=== PATIENT | male | born 1945 | race Caucasian/White ===

== ENCOUNTER → 2016-09-07 | Outpatient (CLI) | payer BC, MEDICARE ==
[~2016-09-07] MED LIST: CELE100C PO; LISI-538 PO; OMEP20CA3 PO; SIMV40TA2 PO
== END ==
LOC: M LAB 11:43
PROVIDERS: ATTEND Ophthalmology
DX: H02.403 Unspecified ptosis of bilateral eyelids (principal)

== ENCOUNTER → 2016-11-17 | Outpatient (CLI) | payer BC, MEDICARE ==
[2016-11-17 11:35] LABS: CALCIUM LEVEL 8.6 MG/DL (8.8-10.2); CREATININE FOR GFR 1.5 MG/DL (0.70-1.30); POTASSIUM SERUM 4.3 MEQ/L (3.5-5.1)
[2016-11-17 11:59] LABS: COLLAGEN ADP 115 SECONDS (56-103)
--- NOTE | 2016-11-17 22:22 | ECGEPIP ---
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
== END ==
LOC: M LAB 10:41
PROVIDERS: ATTEND Ophthalmology
DX: I10 Essential (primary) hypertension (principal)

== ENCOUNTER → 2016-11-24 | Outpatient (REF) | payer BC, MEDICARE ==
[~2016-11-24] MED LIST changes: +ASPI1TAB24 PO; +MELO7.5T6 PO
[2016-11-24 15:06] LABS: COLLAGEN ADP 130 SECONDS (56-103)
== END ==
LOC: M LABDRAWP 13:44
PROVIDERS: ATTEND Ophthalmology
DX: I10 Essential (primary) hypertension (principal)

== ENCOUNTER → 2016-11-27 | Day surgery (SDC) | payer BC, MEDICARE ==
--- NOTE | 2016-11-21 16:46 | HPE ---
DATE OF SCHEDULED ADMISSION: 11/27/2016 HISTORY AND CHIEF COMPLAINT: Mr. Hughes is a 71-year-old gentleman who has had progressive drooping of both upper eyelids. The right upper eyelid is worse than the left upper eyelid. The drooping has been progressive for the last few years. The vision and visual field are affected. The patient is being admitted to have a levator aponeurosis resection, advancement and reattachment with a blepharoplasty of both upper eyelids under local anesthetic with monitored sedation. PAST OCULAR HISTORY: See history of present illness, cataracts both eyes, dry eye syndrome both eyes, vitreous degeneration both eyes. PAST MEDICAL HISTORY AND PREOPERATIVE MEDICAL EVALUATION AND ASSESSMENT: Please see the report by Ryann Ware, Nurse Practitioner. Hypertension, gastroesophageal reflux disease (GERD), osteoarthritis, hyperlipidemia. MEDICATIONS: Please refer to the report by Ryann Ware. Lisinopril, aspirin 81 mg, Mobic, alfuzosin, ranitidine, Tylenol, Zocor. ALLERGIES: No known drug allergies. FAMILY HISTORY: Noncontributory with respect to eye disease. SOCIAL HISTORY: Nonsmoker. On examination, vision without correction: Right eye: 20/25, left eye: 20/25. Intraocular pressure by Goldmann tonometry: Both eyes: 15 mmHg. Pupils: Both eyes: Round, regular and reactive to light. Extraocular movements: Both eyes: Full. External examination: Both eyes: Myogenic ptosis upper eyelid both eyes. Marginal reflex distance: Right eye: 0.5 mm, left eye: 1.0 mm. Levator function: Both eyes: 12 mm. Involutional dermatochalasis with orbital fat herniation upper and lower eyelids both eyes. Margin to brow skin measurement: Right eye: 32 mm, left eye: 30 mm. No lid lagophthalmos present. Slit lamp examination: Cornea: Both eyes: 1+ superficial punctate keratitis. Anterior chamber: Both deep and quiet. Iris: Both eyes: Normal. Lens: Both Eyes: mild nuclear sclerotic cataracts. Visual field ptosis: Both eyes: 45 degree superior loss. IMPRESSION: 1. Myogenic ptosis upper eyelids both eyes, affecting vision and visual field. 2. Involutional dermatochalasis with orbital fat herniation and lash touch upper eyelids both eyes. PLAN: I discussed the findings with Mr. Hughes. I explained to him that the levator muscle and aponeurosis is degenerating, which is causing the eyelids to droop. The right upper eyelid is worse than the left upper eyelid. The excess skin and orbital fat herniation is exacerbating the drooping. This is affecting his vision and visual field. I recommended levator aponeurosis resection, advancement and reattachment with a blepharoplasty of both upper eyelids. I discussed with him the procedure, benefits, expected outcomes, risks and alternatives to surgery. I mentioned that the risk of surgery includes but is not limited to: Surgery is not guaranteed, bleeding, infection, inflammation, scarring, over correction, under correction, injury to the globe, extraocular eye muscles or orbit impairing the vision and eye movement. Mr. Hughes elected to have the said surgery performed. I obtained an informed consent. Advised him to stop his aspirin products and nonsteroidal anti-inflammatory from today. His PFA test was greater than 300 due to the aspirin. I have given him a prescription to repeat the PFA test on Sunday before surgery. Ryann Ware, Nurse Practitioner, will recommend his other preoperative and postoperative medications. MARGARITA
[~2016-11-27] VITALS: Ht 172.7 cm; Wt 95.3 kg
[~2016-11-27] MED LIST changes: +ACETAMINOPHEN TAB 650MG DOSE (2X325MG) PO PRN; +BUPIVACAINE 0.75% 10 ML VIAL XX ONE; +CIPROFLOXACIN 0.3% OPHTH SOLN 2.5ML ONE; +CIPROFLOXACIN OPHTH 0.3% OINTMENT OU SCH; +CIPROFLOXACIN OPHTH 0.3% OINTMENT XX ONE; +D5W/0.2% SODIUM CHLORIDE 1,000 ML IV SCH; +GLYCOPYRROLATE INJ 0.2 MG/ML 2 ML VIAL As Ordered ONE; +HYALURONIDASE 200 UNITS/ML VIAL (J3470) XX ONE; +LABETALOL HCL 100 MG/20 ML VIAL As Ordered ONE; +LIDOCAINE 2% W/EPIN INJ 20ML **PRES FREE As Ordered ONE; +LIDOCAINE W/EPINEPHRINE 1% 20ML VIAL XX ONE; +MIDAZOLAM INJ 2 MG/2 ML VIAL (J2250) As Ordered ONE; +ONDANSETRON 4MG/2ML VIAL (J2405) As Ordered ONE; +POVIDONE-IODINE 5% OPHTH PREP SOL 30ML ONE; +PROPOFOL 200 MG/20 ML VIAL As Ordered ONE; +SODIUM BICARBONATE 8.4% INJ 50MEQ 50 ML VIAL XX ONE; +TOBRADEX OPHTH OINT 3.5 GM XX ONE; +dexameTHASONE 4 MG/ML 1ML VIAL (J1100) IV ONE; +fentaNYL 100 MCG/2 ML INJECTION (J3010) As Ordered ONE
[2016-11-27 10:30] VITALS: BP 166/87
--- NOTE | 2016-11-27 12:47 | RO ---
DATE OF PROCEDURE: 11/27/2016 PREOPERATIVE DIAGNOSIS: 1. Myogenic ptosis upper eyelid both eyes, affecting vision and visual field. 2. Involutional dermatochalasis upper eyelid both eye. POSTOPERATIVE DIAGNOSIS: 1. Myogenic ptosis upper eyelid both eyes, affecting vision and visual field. 2. Involutional dermatochalasis upper eyelid both eyes,marked fatty infiltration of levator muscle, thinning of aponeurosis, Herings phenomenon positive. OPERATIVE PROCEDURE: 1. Levator aponeurosis resection, advancement and reattachment of upper eyelids both eyes. 2. Blepharoplasty upper eyelid both eyes. 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 DESCRIPTION OF OPERATION: The patient was brought into the operating room and positioned appropriately. A surgical marking pen was used to annette the upper lid crease height at 7 mm using a pair of calipers and then the upper incision line was marked leaving 20 mm of skin from the eyebrow to the lash line. After adequate sedation, local anesthetic consisting of Xylocaine 1% mixed 50/50 with Marcaine 0.75% and epinephrine 1:200,000 with 0.5 mL of 8.4% sodium bicarbonate and 200 units of Vitrase per 10 mL of local anesthetic, 2.75 mL was injected subcutaneously along the incision lines and superior border of the tarsus of both upper eyelids. The full face was prepped with Betadine and draped in the usual sterile manner. A 6-0 silk traction suture was placed at the lid margin just nasal to the pupil and both upper eyelid was retracted inferiorly. Starting with the right upper eyelid and followed by the left upper eyelid, the skin incision was made with a #15 blade. Good hemostasis was ensured throughout the procedure using bipolar cautery. The orbicularis muscle was identified and incised at the temporal margin and then dissected down to the suborbicularis plane. The myocutaneous flap was then excised from temporal to medial. The orbital septum was identified and incised just inferior to the superior orbital rim and the incision was extended medially and laterally. The medial and central orbital fat pads were identified and retracted to reveal the levator muscle and aponeurosis which was detached from its normal position on the superior tarsus. The levator muscle had marked fatty infiltration. The superior surface of the tarsus was exposed. The levator aponeuosis was thinned. The levator aponeurosis was dissected and advanced. A double-armed 5-0 nylon suture was used to reattach the levator aponeurosis to the tarsus. The suture was tied temporarily. The patient was sat up and the lid margin contour and marginal reflex distance was checked for both upper eyelids. The 5-0 nylon suture was adjusted until the marginal reflex distance was 3 mm. The patient was then placed supine and the 5-0 nylon suture was tied and cut. Hemostasis was checked. The skin and orbicularis layer was then closed with interrupted and continuous 6-0 plain suture. There were no complications during the surgery. At the end of the procedure, a combination of Ciloxan ophthalmic ointment mixed with TobraDex ophthalmic ointment was applied to the incision and the sutures. A cold saline compress was placed over both closed upper eyelids. The patient left for the recovery room in good condition. Specimens were sent to pathology. MARGARITA
== END | disposition home or self-care (01) ==
LOC: M SDC 05:50
PROVIDERS: ATTEND Ophthalmology
DX: H02.421 Myogenic ptosis of right eyelid (principal); H02.422 Myogenic ptosis of left eyelid; H02.831 Dermatochalasis of right upper eyelid; H02.832 Dermatochalasis of right lower eyelid; I10 Essential (primary) hypertension; E78.00 Pure hypercholesterolemia, unspecified; K21.9 Gastro-esophageal reflux disease without esophagitis; M19.90 Unspecified osteoarthritis, unspecified site; H26.9 Unspecified cataract; H04.123 Dry eye syndrome of bilateral lacrimal glands; H43.813 Vitreous degeneration, bilateral; Z87.891 Personal history of nicotine dependence; Z79.899 Other long term (current) drug therapy

== ENCOUNTER → 2017-01-29 | Outpatient (CLI) | payer BC ==
[~2017-01-29] MED LIST changes: -ACETAMINOPHEN TAB 650MG DOSE (2X325MG) PO PRN; -BUPIVACAINE 0.75% 10 ML VIAL XX ONE; -CIPROFLOXACIN 0.3% OPHTH SOLN 2.5ML ONE; -CIPROFLOXACIN OPHTH 0.3% OINTMENT OU SCH; -CIPROFLOXACIN OPHTH 0.3% OINTMENT XX ONE; -D5W/0.2% SODIUM CHLORIDE 1,000 ML IV SCH; -GLYCOPYRROLATE INJ 0.2 MG/ML 2 ML VIAL As Ordered ONE; -HYALURONIDASE 200 UNITS/ML VIAL (J3470) XX ONE; -LABETALOL HCL 100 MG/20 ML VIAL As Ordered ONE; -LIDOCAINE 2% W/EPIN INJ 20ML **PRES FREE As Ordered ONE; -LIDOCAINE W/EPINEPHRINE 1% 20ML VIAL XX ONE; -MIDAZOLAM INJ 2 MG/2 ML VIAL (J2250) As Ordered ONE; -ONDANSETRON 4MG/2ML VIAL (J2405) As Ordered ONE; -POVIDONE-IODINE 5% OPHTH PREP SOL 30ML ONE; -PROPOFOL 200 MG/20 ML VIAL As Ordered ONE; -SODIUM BICARBONATE 8.4% INJ 50MEQ 50 ML VIAL XX ONE; -TOBRADEX OPHTH OINT 3.5 GM XX ONE; -dexameTHASONE 4 MG/ML 1ML VIAL (J1100) IV ONE; -fentaNYL 100 MCG/2 ML INJECTION (J3010) As Ordered ONE
== END ==
LOC: M SMT 10:25
PROVIDERS: ATTEND Urology
DX: Z12.5 Encounter for screening for malignant neoplasm of prostate (principal)

== ENCOUNTER → 2017-09-14 | Outpatient (REF) | payer BC, MEDICARE ==
[2017-09-14 14:21] LABS: ALBUMIN 4.1 GM/DL (3.2-5.2); ALBUMIN/GLOBULIN RATIO 1.37 (1.00-1.93); ALKALINE PHOSPHATASE 88 U/L (45-117); ALT/SGPT 22 U/L (12-78); ANION GAP 7 MEQ/L (8-16); AST/SGOT 15 U/L (7-37); BILIRUBIN,TOTAL 0.8 MG/DL (0.2-1.0); BLOOD UREA NITROGEN 27 MG/DL (7-18); CALCIUM LEVEL 9.1 MG/DL (8.8-10.2); CARBON DIOXIDE LEVEL 26 MEQ/L (21-32); CHLORIDE LEVEL 110 MEQ/L (98-107); CHOLESTEROL LEVEL 128 MG/DL (<200); GLOMERULAR FILTRATION RATE 57.6 (>42); GLUCOSE, FASTING 114 MG/DL (70-100); HDL CHOLESTEROL 40 MG/DL (>40); LDL CHOLESTEROL 64.6 MG/DL (<100); NON-HDL-C 88 MG/DL; POTASSIUM SERUM 4.3 MEQ/L (3.5-5.1); SODIUM LEVEL 143 MEQ/L (136-145); TOTAL PROTEIN 7.1 GM/DL (6.4-8.2); TRIGLYCERIDES LEVEL 117 MG/DL (<150)
== END ==
LOC: M LABDRAW1 12:57
DX: I10 Essential (primary) hypertension (principal)
CPT/HCPCS: 84443

== ENCOUNTER → 2018-03-27 | Outpatient (CLI) | payer BC, MEDICARE ==
[2018-03-27 13:29] LABS: PSA SCREENING 5.36 NG/ML (< 4.0)
== END ==
LOC: M SMT 09:46
DX: Z12.5 Encounter for screening for malignant neoplasm of prostate (principal)
CPT/HCPCS: G0103

== ENCOUNTER → 2018-09-02 | Outpatient (CLI) | payer BC, MEDICARE ==
[~2018-09-02] MED LIST changes: +ASPI-161 PO; -ASPI1TAB24 PO; -MELO7.5T6 PO; +MELO7.5T7 PO
== END ==
LOC: M SMT 09:31
PROVIDERS: ATTEND Nurse Practitioner Women's Health
DX: Z12.5 Encounter for screening for malignant neoplasm of prostate (principal)
CPT/HCPCS: 36415; G0103

== ENCOUNTER → 2018-09-03 | Outpatient (CLI) | payer BC, MEDICARE ==
[2018-09-03 13:58] LABS: BASO # 0.1 10^3/uL (0.0-0.2); BASO % 1.5 % (0.0-1.0); EOS # 0.6 10^3/uL (0.0-0.50); EOS % 7.3 % (0.0-3.0); HEMATOCRIT 47.6 % (42.0-52.0); HEMOGLOBIN 15.8 g/dl (13.5-17.5); LYMPH % 22.5 % (24.0-44.0); MEAN CORPUSCULAR HEMOGLOBIN 31.8 pg (27.0-33.0); MEAN CORPUSCULAR HGB CONC 33.2 g/dl (32.0-36.5); MEAN CORPUSCULAR VOLUME 95.8 fl (80.0-96.0); MONO # 0.8 10^3/uL (0.0-0.8); NEUTROPHILS # 5.2 10^3/uL (1.8-7.7); NEUTROPHILS % 59.4 % (36.0-66.0); PLATELET COUNT, AUTOMATED 153 10^3/uL (150-450); RED BLOOD COUNT 4.97 10^6/uL (4.30-6.10); WHITE BLOOD COUNT 8.7 10^3/uL (4.0-10.0)
[2018-09-03 14:30] LABS: BILIRUBIN,TOTAL 0.6 MG/DL (0.2-1.0); CALCIUM LEVEL 9.2 MG/DL (8.8-10.2); CHOLESTEROL RISK RATIO 3.638 (<5); CREATININE FOR GFR 1.47 MG/DL (0.70-1.30); GLOMERULAR FILTRATION RATE 49.9 (>42); POTASSIUM SERUM 4.4 MEQ/L (3.5-5.1)
== END ==
LOC: M SMT 10:20
PROVIDERS: ATTEND Family Medicine
DX: M19.019 Primary osteoarthritis, unspecified shoulder (principal); I10 Essential (primary) hypertension; E78.5 Hyperlipidemia, unspecified

== ENCOUNTER → 2019-02-13 | Outpatient (CLI) | payer BC, MEDICARE ==
[~2019-02-13] MED LIST changes: +ACET-683 PO; +ALFU10TA2 PO; +CYCL5TAB PO; +LIDO5DIS41 TD; +RANI15TA PO
[2019-02-13 17:12] LABS: CALCIUM LEVEL 9.1 MG/DL (8.8-10.2); CREATININE FOR GFR 1.5 MG/DL (0.70-1.30); GLOMERULAR FILTRATION RATE 48.7 (>42); POTASSIUM SERUM 4.5 MEQ/L (3.5-5.1)
[2019-02-13 17:17] LABS: HEMATOCRIT 46.5 % (42.0-52.0); HEMOGLOBIN 15.2 g/dl (13.5-17.5); MEAN CORPUSCULAR HEMOGLOBIN 32.2 pg (27.0-33.0); MEAN CORPUSCULAR HGB CONC 32.7 g/dl (32.0-36.5); MEAN CORPUSCULAR VOLUME 98.5 fl (80.0-96.0); PLATELET COUNT, AUTOMATED 178 10^3/uL (150-450); RED BLOOD COUNT 4.72 10^6/uL (4.30-6.10); WHITE BLOOD COUNT 9.5 10^3/uL (4.0-10.0)
== END ==
LOC: M SMT 13:08
PROVIDERS: ATTEND Family Medicine
DX: M19.019 Primary osteoarthritis, unspecified shoulder (principal); N18.3 Chronic kidney disease, stage 3 (moderate)

== ENCOUNTER → 2019-04-01 | Outpatient (CLI) | payer BC ==
[~2019-04-01] MED LIST changes: -OMEP20CA3 PO; +OMEP20CA4 PO
== END ==
LOC: M SMT 10:48
PROVIDERS: ATTEND Urology
DX: N40.1 Benign prostatic hyperplasia with lower urinary tract symptoms (principal)

== ENCOUNTER → 2019-06-26 | Outpatient (CLI) | payer BC, MEDICARE ==
--- NOTE | 2019-06-26 16:19 | REP ---
Two-view chest: 06/26/2019. Indication: Cough. Comparison: None. Findings: There is a 1.2 cm hyperdensity in the left hilar region as well as a sub 5 mm pulmonary nodule within the left lingula. There is no pleural effusion or pneumothorax. The cardiac silhouette is not enlarged. Ectatic aorta is noted as well as multilevel thoracic spine degenerative changes and mild scoliosis. Impression: Hyperdense nodule within the left hilar region as well as a 5 mm pulmonary nodule as described. Possible partially calcified lymph node within the left hilar region and granuloma are likely, however, recommend chest CT. Electronically Signed by Pilo Martinez DO 06/26/2019 04:10 P
== END ==
LOC: M CLY 13:59
PROVIDERS: ATTEND Nurse Practitioner Family
DX: R05 Cough (principal); R91.8 Other nonspecific abnormal finding of lung field

== ENCOUNTER → 2019-08-18 | Outpatient (CLI) | payer BC ==
[~2019-08-18] MED LIST changes: -ALFU10TA2 PO; +ALFU10TA3 PO; +OMEP-172 PO; -OMEP20CA4 PO; -SIMV40TA2 PO; +SIMV40TA20 PO
[2019-08-18 13:41] LABS: HEMATOCRIT 47.8 % (42.0-52.0); HEMOGLOBIN 15.6 g/dl (13.5-17.5); MEAN CORPUSCULAR HEMOGLOBIN 32.2 pg (27.0-33.0); MEAN CORPUSCULAR HGB CONC 32.6 g/dl (32.0-36.5); MEAN CORPUSCULAR VOLUME 98.8 fl (80.0-96.0); PLATELET COUNT, AUTOMATED 150 10^3/uL (150-450); RED BLOOD COUNT 4.84 10^6/uL (4.30-6.10); WHITE BLOOD COUNT 8.7 10^3/uL (4.0-10.0)
[2019-08-18 14:19] LABS: BILIRUBIN,TOTAL 0.7 MG/DL (0.2-1.0); CALCIUM LEVEL 8.9 MG/DL (8.8-10.2); CHOLESTEROL RISK RATIO 4.055 (<5); CREATININE FOR GFR 1.61 MG/DL (0.70-1.30); GLOMERULAR FILTRATION RATE 44.8 (>42); POTASSIUM SERUM 4.4 MEQ/L (3.5-5.1); TOTAL PROTEIN 7.1 GM/DL (6.4-8.2)
== END ==
LOC: M PLALAB 11:01
PROVIDERS: ATTEND Family Medicine
DX: M19.019 Primary osteoarthritis, unspecified shoulder (principal)

== ENCOUNTER → 2019-10-13 | Outpatient (CLI) | payer BC, MEDICARE ==
[~2019-10-13] MED LIST changes: -OMEP-172 PO; +OMEP1CAP73 PO
[2019-10-16 00:07] LABS: PSA % FREE 13.8 % (.); PSA FREE 0.76 ng/mL; PSA TOTAL 5.5 ng/mL (0.0-4.0)
== END ==
LOC: M PLALAB 10:49
PROVIDERS: ATTEND Nurse Practitioner Women's Health
DX: R97.20 Elevated prostate specific antigen [PSA] (principal)

== ENCOUNTER → 2020-01-16 | Outpatient (REF) | payer BC, MEDICARE ==
[2020-01-16 17:05] LABS: BASO # 0.1 10^3/uL (0.0-0.2); BASO % 1.3 % (0.0-1.0); EOS # 0.9 10^3/uL (0.0-0.5); EOS % 8.6 % (0.0-3.0); HEMATOCRIT 46.9 % (42.0-52.0); HEMOGLOBIN 15.1 g/dl (13.5-17.5); LYMPH # 2.1 10^3/uL (1.5-5.0); LYMPH % 21.3 % (24.0-44.0); MEAN CORPUSCULAR HEMOGLOBIN 31.6 pg (27.0-33.0); MEAN CORPUSCULAR HGB CONC 32.2 g/dl (32.0-36.5); MEAN CORPUSCULAR VOLUME 98.1 fl (80.0-96.0); MONO # 0.9 10^3/uL (0.0-0.8); MONO % 8.6 % (0.0-5.0); NEUTROPHILS # 5.9 10^3/uL (1.5-8.5); NEUTROPHILS % 59.6 % (36.0-66.0); PLATELET COUNT, AUTOMATED 150 10^3/uL (150-450); RED BLOOD COUNT 4.78 10^6/uL (4.30-6.10); WHITE BLOOD COUNT 9.9 10^3/uL (4.0-10.0)
[2020-01-16 17:53] LABS: ALBUMIN 4.1 GM/DL (3.2-5.2); BILIRUBIN,TOTAL 0.9 MG/DL (0.2-1.0); CALCIUM LEVEL 9.4 MG/DL (8.8-10.2); CHOLESTEROL RISK RATIO 4.054 (<5); CREATININE FOR GFR 1.62 MG/DL (0.70-1.30); GLOMERULAR FILTRATION RATE 44.4 (>42); POTASSIUM SERUM 4.4 MEQ/L (3.5-5.1); TOTAL PROTEIN 7.5 GM/DL (6.4-8.2)
== END ==
LOC: M SFHCCLAY 10:24
PROVIDERS: ATTEND Family Medicine
DX: M19.019 Primary osteoarthritis, unspecified shoulder (principal); E78.5 Hyperlipidemia, unspecified; I10 Essential (primary) hypertension

== ENCOUNTER → 2020-07-08 | Outpatient (REF) | payer MEDICARE ==
[2020-07-08 16:26] LABS: HEMOGLOBIN A1c 5.9 %
[2020-07-08 16:36] LABS: CALCIUM LEVEL 9.5 MG/DL (8.8-10.2); CREATININE FOR GFR 1.35 MG/DL (0.70-1.30); GLOMERULAR FILTRATION RATE 54.7 (>42); POTASSIUM SERUM 4.6 MEQ/L (3.5-5.1); PROSTATIC SPECIFIC AG MONITOR 8.14 NG/ML (< 4.00)
== END ==
LOC: M SFHCCLAY 10:12
PROVIDERS: ATTEND Family Medicine
DX: R97.20 Elevated prostate specific antigen [PSA] (principal); I12.9 Hypertensive chronic kidney disease with stage 1 through stage 4 chronic kidney disease, or unspecified chronic kidney disease; N18.30 Chronic kidney disease, stage 3 unspecified; R73.01 Impaired fasting glucose

== ENCOUNTER → 2020-07-26 | Outpatient (REF) | payer MEDICARE | LOC: M SMT 16:57 | PROVIDERS: ATTEND Nurse Practitioner Family | DX: N40.1 Benign prostatic hyperplasia with lower urinary tract symptoms (principal) | CPT/HCPCS: 51798; 87086; G0463 ==

== ENCOUNTER → 2020-09-29 | Outpatient (CLI) | payer MEDICARE ==
[~2020-09-29] MED LIST changes: -LISI-538 PO; +LISI20TA33 PO
--- NOTE | 2020-09-29 17:50 | REP ---
INDICATION: CKD III HTN COMPARISON: None TECHNIQUE: Real time linder scale ultrasound examination using curved array transducer. FINDINGS: Kidneys are normal in reniform shape with increased central sinus fat consistent with chronic medical renal disease. No hydronephrosis, nephrolithiasis, or renal mass lesion. Right kidney measures 10.5 x 5.9 x 5.1 cm. Left kidney measures 10.7 x 5.8 x 5.4 cm and includes 2.6 cm, 1.0 cm simple peripelvic cysts and 1.9 cm complex peripelvic cyst. IMPRESSION: Chronic medical renal disease with simple and complex left renal cysts. Consider pre and postcontrast CT to confirm benign findings. 1. Prostatomegaly. <Electronically signed by Kendrick Stevenson > 09/29/20 [id number]
--- NOTE | 2020-09-29 17:51 | REP ---
INDICATION: CKD III HTN COMPARISON: None TECHNIQUE: Real time B-mode ultrasound examination using curved array transducer. FINDINGS: Bladder is normal in appearance without wall thickening or mass lesion. Bilateral ureteral jets are identified. Prevoid bladder measures 12.6 x 11.0 x 9.6 cm (869 cc). Postvoid bladder measures 11.3 x 9.0 x 6.4 cm (425 cc). Postvoid residual: 49% IMPRESSION: 1. Abnormally elevated postvoid residual volume. <Electronically signed by Kendrick Stevenson > 09/29/20 [id number]
== END ==
LOC: M RAD 11:14
PROVIDERS: ATTEND Internal Medicine Nephrology
DX: N18.31 Chronic kidney disease, stage 3a (principal); I12.9 Hypertensive chronic kidney disease with stage 1 through stage 4 chronic kidney disease, or unspecified chronic kidney disease; N40.0 Benign prostatic hyperplasia without lower urinary tract symptoms

== ENCOUNTER → 2020-10-24 | Outpatient (CLI) | payer MEDICARE ==
[2020-10-26 23:06] LABS: PSA % FREE 10.9 % (.); PSA FREE 0.75 ng/mL; PSA TOTAL 6.9 ng/mL (0.0-4.0)
== END ==
LOC: M LAB 10:32
PROVIDERS: ATTEND Nurse Practitioner Family
DX: R97.20 Elevated prostate specific antigen [PSA] (principal)

== ENCOUNTER → 2020-10-28 | Outpatient (CLI) | payer MEDICARE | LOC: M PLALAB 10:54 | PROVIDERS: ATTEND Nurse Practitioner Women's Health | DX: Z13.79 Encounter for other screening for genetic and chromosomal anomalies (principal) ==

== ENCOUNTER → 2020-11-30 | Outpatient (CLI) | payer MEDICARE ==
--- NOTE | 2020-11-30 13:52 | REPPI ---
INDICATION: ELEVATED PSA. COMPARISON: None. TECHNIQUE: Transrectal prostate ultrasound performed, with ultrasound guidance provided for Dr. Andrews who performed ultrasound-guided biopsy. FINDINGS: Prostate measures 3.4 x 3.0 x 4.9 cm, total volume 25.6 mL. Echotexture is heterogeneous with scattered cysts and calcifications. A nodule in the right mid lateral prostate measures 8 x 5 mm and another in the right base laterally measures 9 x 6 mm. Seminal vesicles are symmetrical. IMPRESSION: Prostate ultrasound as above, ultrasound guidance was provided for Dr. Andrews who performed ultrasound-guided biopsy of the prostate. <Electronically signed by Ashwin Watkins > 11/30/20 [id number]
== END ==
LOC: M SMT PRO 10:18
PROVIDERS: ATTEND Urology
DX: C61 Malignant neoplasm of prostate (principal)
CPT/HCPCS: 55700; 76872; 76942; G0416

== ENCOUNTER → 2020-12-13 | Outpatient (REF) | payer MEDICARE ==
[2020-12-13 14:13] LABS: BLOOD UREA NITROGEN 20 MG/DL (7-18); CALCIUM LEVEL 9.3 MG/DL (8.8-10.2); CARBON DIOXIDE LEVEL 30 MEQ/L (21-32); CHLORIDE LEVEL 110 MEQ/L (98-107); CREATININE FOR GFR 1.15 MG/DL (0.70-1.30); GLOMERULAR FILTRATION RATE > 60.0 (>42); GLUCOSE, FASTING 100 MG/DL (70-100); POTASSIUM SERUM 4.6 MEQ/L (3.5-5.1); SODIUM LEVEL 142 MEQ/L (136-145)
== END ==
LOC: M PLALAB 13:25 → M SMT 13:25
PROVIDERS: ATTEND Urology
DX: C61 Malignant neoplasm of prostate (principal)

== ENCOUNTER → 2020-12-22 | Outpatient (CLI) | payer MEDICARE ==
[~2020-12-22] MED LIST changes: +ISOVUE-370 76% 100ML VIAL As Ordered ONE
--- NOTE | 2020-12-22 10:56 | REP ---
INDICATION: PROSTATE CA. COMPARISON: None TECHNIQUE: Axial contrast-enhanced images from the lung bases to the pubic symphysis using 100 cc Isovue 370 intravenous contrast material. Delayed images of the abdomen along with coronal and sagittal reformations obtained. This CT examination was performed using the following dose reduction techniques: Automated exposure control, adjustment of mA and/or kv according to the patient's size, and the use of iterative reconstruction technique. FINDINGS: Liver, spleen, pancreas, bilateral adrenal glands and kidneys are relatively normal. Hepatic and splenic calcifications along with calcified pulmonary granulomata consistent with prior granulomatous disease. Renal hypodensities consistent with benign cysts measuring up to 1.8 cm. The enteric system including stomach, small, and large bowel appears normal. No evidence for obstruction or acute inflammatory process. Normal terminal ileum and cecum are identified in the right lower quadrant. Scattered diverticula without acute diverticulitis. Pelvis demonstrates normal bladder and mild prostatomegaly with parenchymal calcifications.. No ascites. No free air. No intraperitoneal or retroperitoneal adenopathy. Abdominal aorta and vasculature appear normal. Musculoskeletal structures demonstrate degenerative changes without acute osseous abnormality. IMPRESSION: No acute abdominopelvic pathology appreciated. Benign renal cysts up to 1.8 cm. Scattered sigmoid diverticula without acute diverticulitis. Prostatomegaly. No ascites, focal inflammatory stranding, adenopathy, or free air. <Electronically signed by Kendrick Stevenson > 12/22/20 [id number]
== END ==
LOC: M RAD 10:15
PROVIDERS: ATTEND Urology
DX: C61 Malignant neoplasm of prostate (principal); N28.1 Cyst of kidney, acquired; K57.30 Diverticulosis of large intestine without perforation or abscess without bleeding
CPT/HCPCS: 74177; Q9967

== ENCOUNTER → 2021-01-03 | Outpatient (CLI) | payer MEDICARE ==
[~2021-01-03] MED LIST changes: -ISOVUE-370 76% 100ML VIAL As Ordered ONE
--- NOTE | 2021-01-03 15:01 | REP ---
INDICATION: PROSTATE CA. COMPARISON: None. TECHNIQUE/RADIOTRACER AND DOSE: Following the intravenous administration of 21.9mCi technetium 99 M MDP, patient's whole-body is imaged in multiple projections. FINDINGS: There is scattered arthritic uptake, specifically in the region of the right 1st metatarsophalangeal joint, the inferior left calcaneus, the bilateral patellofemoral joints, the bilateral shoulder joints as well as in portions of the spine. There is no compelling scintigraphic evidence of osseous metastases. Renal and bladder activity are seen. IMPRESSION: No compelling scintigraphic evidence of osseous metastases. Scattered arthritic uptake. <Electronically signed by Ashwin Watkins > 01/03/21 [id number]
== END ==
LOC: M RAD 09:00
PROVIDERS: ATTEND Urology
DX: C61 Malignant neoplasm of prostate (principal)
CPT/HCPCS: 78306; A9503

== ENCOUNTER → 2021-01-13 | Outpatient (REF) | payer MEDICARE ==
[2021-01-13 16:34] LABS: CALCIUM LEVEL 10.1 MG/DL (8.8-10.2); CREATININE FOR GFR 1.41 MG/DL (0.70-1.30); POTASSIUM SERUM 4.6 MEQ/L (3.5-5.1)
[2021-01-13 16:38] LABS: HEMATOCRIT 48.1 % (42.0-52.0); HEMOGLOBIN 15.6 g/dl (13.5-17.5); MEAN CORPUSCULAR HEMOGLOBIN 31.7 pg (27.0-33.0); MEAN CORPUSCULAR HGB CONC 32.4 g/dl (32.0-36.5); MEAN CORPUSCULAR VOLUME 97.8 fl (80.0-96.0); PLATELET COUNT, AUTOMATED 156 10^3/uL (150-450); RED BLOOD COUNT 4.92 10^6/uL (4.30-6.10); WHITE BLOOD COUNT 8.1 10^3/uL (4.0-10.0)
[2021-01-13 16:48] LABS: INR 0.99; PROTHROMBIN TIME 13.3 SECONDS (12.5-14.3)
[2021-01-13 16:49] LABS: PARTIAL THROMBOPLASTIN TIME 36.3 SECONDS (24.2-38.5)
== END ==
LOC: M LABSMT 10:44
PROVIDERS: ATTEND Urology
DX: Z01.818 Encounter for other preprocedural examination (principal); C61 Malignant neoplasm of prostate; N39.0 Urinary tract infection, site not specified

== ENCOUNTER → 2021-01-13 | Outpatient (CLI) | payer MEDICARE ==
--- NOTE | 2021-01-13 11:27 | REP ---
INDICATION: PREOP TESTING; PROSTATE CANCER COMPARISON: 06/26/2019 TECHNIQUE: PA and lateral. FINDINGS: The mediastinum and cardiac silhouette are normal. The lung gan are clear and without acute consolidation, effusion, or pneumothorax. Stable scattered calcified granulomata and calcified mediastinal lymph nodes noted. The skeletal structures are intact and normal. IMPRESSION: No acute cardiopulmonary process. <Electronically signed by Kendrick Stevenson > 01/13/21 [id number]
== END ==
LOC: M CLY 10:56
PROVIDERS: ATTEND Urology
DX: Z01.818 Encounter for other preprocedural examination (principal); C61 Malignant neoplasm of prostate; N39.0 Urinary tract infection, site not specified

== ENCOUNTER → 2021-02-08 | Outpatient (REF) | payer MEDICARE ==
[2021-02-08 15:33] LABS: HEMOGLOBIN 15.6 g/dl (13.5-17.5); MEAN CORPUSCULAR HEMOGLOBIN 31.5 pg (27.0-33.0); MEAN CORPUSCULAR HGB CONC 32.5 g/dl (32.0-36.5); MEAN CORPUSCULAR VOLUME 96.8 fl (80.0-96.0); PLATELET COUNT, AUTOMATED 158 10^3/uL (150-450); RED BLOOD COUNT 4.96 10^6/uL (4.30-6.10); WHITE BLOOD COUNT 8.4 10^3/uL (4.0-10.0)
[2021-02-08 16:04] LABS: CALCIUM LEVEL 9.9 MG/DL (8.8-10.2); CREATININE FOR GFR 1.26 MG/DL (0.70-1.30); GLOMERULAR FILTRATION RATE 59.2 (>42); POTASSIUM SERUM 4.6 MEQ/L (3.5-5.1)
== END ==
LOC: M SMT 15:09
PROVIDERS: ATTEND Urology
DX: Z01.818 Encounter for other preprocedural examination (principal); N39.0 Urinary tract infection, site not specified; C61 Malignant neoplasm of prostate

== ENCOUNTER → 2021-02-10 | Outpatient (CLI) | payer MEDICARE | LOC: M LABSMTC 09:51 | PROVIDERS: ATTEND Anesthesiology | DX: Z01.812 Encounter for preprocedural laboratory examination (principal); Z20.822 Contact with and (suspected) exposure to COVID-19 ==

== ENCOUNTER → 2021-02-24 | Outpatient (REF) | payer MEDICARE ==
[2021-02-24 12:45] LABS: CALCIUM LEVEL 9.4 MG/DL (8.8-10.2); CHOLESTEROL RISK RATIO 3.609 (<5); CREATININE FOR GFR 1.51 MG/DL (0.70-1.30); GLOMERULAR FILTRATION RATE 48.1 (>42); POTASSIUM SERUM 4.4 MEQ/L (3.5-5.1)
== END ==
LOC: M SFHCCLAY 08:19
PROVIDERS: ATTEND Urology
DX: E78.5 Hyperlipidemia, unspecified (principal); I11.9 Hypertensive heart disease without heart failure

== ENCOUNTER → 2021-03-25 | Outpatient (CLI) | payer MEDICARE | LOC: M LABSMTC 09:35 | PROVIDERS: ATTEND Anesthesiology | DX: Z01.812 Encounter for preprocedural laboratory examination (principal); Z20.822 Contact with and (suspected) exposure to COVID-19 ==

== ENCOUNTER → 2021-04-01 | Outpatient (CLI) | payer MEDICARE | LOC: M LABSMTC 10:43 | PROVIDERS: ATTEND Internal Medicine Cardiovascular Disease | DX: Z20.822 Contact with and (suspected) exposure to COVID-19 (principal) | CPT/HCPCS: 36415; 84153; U0003 ==

== ENCOUNTER → 2021-04-08 | Outpatient (CLI) | payer MEDICARE ==
[~2021-04-08] MED LIST changes: +PERCOCET PO
[2021-04-08 13:36] LABS: HEMATOCRIT 49.2 % (42.0-52.0); MEAN CORPUSCULAR HEMOGLOBIN 31.9 pg (27.0-33.0); MEAN CORPUSCULAR HGB CONC 32.5 g/dl (32.0-36.5); PLATELET COUNT, AUTOMATED 155 10^3/uL (150-450); RED BLOOD COUNT 5.02 10^6/uL (4.30-6.10); WHITE BLOOD COUNT 9.6 10^3/uL (4.0-10.0)
[2021-04-08 14:09] LABS: CREATININE FOR GFR 1.41 MG/DL (0.70-1.30); GLOMERULAR FILTRATION RATE 51.9 (>42); POTASSIUM SERUM 4.6 MEQ/L (3.5-5.1)
== END ==
LOC: M PLALAB 09:52
PROVIDERS: ATTEND Urology
DX: Z01.812 Encounter for preprocedural laboratory examination (principal); C61 Malignant neoplasm of prostate; N39.0 Urinary tract infection, site not specified
CPT/HCPCS: 36415; 80048; 82565; 85027; 87086; G0463

== ENCOUNTER → 2021-04-08 | Outpatient (CLI) | payer MEDICARE ==
[2021-04-08 14:13] LABS: CREATININE FOR GFR 1.45 MG/DL (0.70-1.30); GLOMERULAR FILTRATION RATE 50.2 (>42)
== END ==
LOC: M PLALAB 09:55
PROVIDERS: ATTEND Internal Medicine Cardiovascular Disease
DX: C61 Malignant neoplasm of prostate (principal); N39.0 Urinary tract infection, site not specified

== ENCOUNTER → 2021-04-22 | Outpatient (CLI) | payer MEDICARE ==
[~2021-04-22] MED LIST changes: -PERCOCET PO
== END ==
LOC: M LABSMTC 11:24
PROVIDERS: ATTEND Anesthesiology
DX: Z01.812 Encounter for preprocedural laboratory examination (principal); Z20.828 Contact with and (suspected) exposure to other viral communicable diseases

== ENCOUNTER 2021-04-27 10:36 | Inpatient (IN) | payer MEDICARE ==
[~2021-04-27] VITALS: Ht 172.7 cm; Wt 89.9 kg
[~2021-04-27 10:36] MED LIST changes: +HEPARIN SOD (PORCINE) 5000UNITS/ML 1ML VIAL/SYRINGE SQ SCH; +LIDOCAINE 1% MDV 20ML VIAL SQ PRN; +LIDOCAINE 2% 100MG/5ML SDV (FOR ANES.) As Ordered ONE; +LR 1,000 ML IV ONE; +ONDANSETRON 4MG/2ML VIAL As Ordered ONE; +ROCURONIUM BROMIDE 50 MG/5 ML VIAL As Ordered ONE; +SUGAMMADEX SODIUM 500 MG/5 ML VIAL (BRIDION) As Ordered ONE; +ceFAZolin SOD 2 GM in IV 1 EA IV ONE; +dexameTHASONE 4 MG/ML 1ML VIAL (J1100 PER 1MG) As Ordered ONE; +fentaNYL 100 MCG/2 ML INJECTION (J3010) As Ordered ONE; +propofoL 200 MG/20 ML VIAL As Ordered ONE
[2021-04-27] MEDS ORDERED: HEPARIN SOD (PORCINE) 5000UNITS/ML 1ML VIAL/SYRINGE As Ordered ONE (11:13)
[2021-04-27] MEDS ORDERED: BUPIVACAINE HCL 0.25% 30ML VIAL As Ordered ONE (14:03)
[2021-04-27] MEDS ORDERED: LIDOCAINE 1% SDV 30ML VIAL As Ordered ONE (14:03)
[2021-04-27] MEDS ORDERED: ATROPINE SULF 1MG/10ML SYRINGE (J0461) IV PRN (15:50)
--- NOTE | 2021-04-27 16:03 | HPEPDOC ---
General Date of Admission Apr 27, 2021 at 10:36 Date of Service: Apr 27, 2021 Chief Complaint The patient is a 76-year-old male admitted with a reason for visit of Prostate Cancer. Source: Patient Exam Limitations: No limitations History of Present Illness Patient is 76 years old male with past medical history of hypertension, prostate cancer, hyperlipidemia, CKD stage III, GERD was admitted to hospital for elective radical prostatectomy. Before surgery patient developed bradycardia with heart rate of 40 and EKG showed type I Mobitz. Patient denied any chest pain, palpitations, fever or chills. I talked to Dr. Fofana he recommended to admit the patient for possible pacemaker placement. His vital signs significant for hypertensive urgency with systolic blood pressure of 200. Home Medications Scheduled Alfuzosin HCl (Alfuzosin HCl ER) 10 Mg Tab.er.24h, 1 TAB PO DAILY, (Reported) Lisinopril (Lisinopril) 20 Mg Tab, 20 MG PO DAILY, (Reported) Omeprazole (Omeprazole) 20 Mg Cap, 20 MG PO DAILY, (Reported) Simvastatin (Simvastatin) 40 Mg Tab, 40 MG PO DAILY, (Reported) Allergies Coded Allergies: No Known Allergies (Unverified , 04/19/21) Past Medical History Medical History HTN (HYPERTENSION), prostate cancer OSTEOARTHROSIS, SHOULDER REGION HYPERLIPIDEMIA CHRONIC KIDNEY DISEASE STAGE 3 REFLUX ESOPHAGITIS HX OF TOBACCO USE DISORDER HX OF SEBORRHEIC KERATOSIS Surgical History GALL BLADDER AROUND 30 YEARS AGO COLONOSCOPY 11/2015 [place] [facility] FOR PTOSIS 11/2016 TRUS Family History FATHER: 65 YRS, HYPERTENSION, CARDIAC DISEASE, IN A MVA MOTHER: 65 YRS, CAR ACCIDENT Social History * Smoker: former Smoker Alcohol: Denies Drugs: denies A-FIB/CHADSVASC A-FIB History Current/History of A-Fib/PAF?: No Current PO Anticoag Therapy: No Review of Systems Constitutional: Denies: Chills Eyes: Denies: Pain Skin: Denies: Rash, Lesions Pulmonary: Denies: Dyspnea Cardiovascular: Denies: Chest Pain Gastrointestinal: Denies: Nausea Genitourinary: Denies: Dysuria Hematologic: Denies: Bruising Endocrine: Denies: Polydipsia Musculoskeletal: Denies: Neck Pain Psych: Reports: Mood Normal Physical Examination General Exam: Positive: Alert Eye Exam: Positive: PERRLA ENT Exam: Positive: Atraumatic Neck Exam: Positive: Supple; Negative: JVD Chest Exam: Negative: Clear to auscultation Heart Exam: Positive: Bradycardic; Negative: Regular Rhythm Telemetry: Positive: Bradycardia, PVCs Abdomen Exam: Positive: Normal bowel sounds Extremity Exam: Negative: Clubbing Skin Exam: Positive: Nl turgor and temperature Neuro Exam: Positive: Cranial Nerves 3-12 NL Psych Exam: Positive: Mental status NL Vital Signs Vital Signs Date Time Temp Pulse Resp B/P (MAP) Pulse Ox O2 Delivery O2 Flow Rate FiO2 04/27/21 12:26 176/72 (106) 04/27/21 11:28 97.7 51 20 98 Assessment/Plan Patient is 76 years old male with past medical history of hypertension, prostate cancer, hyperlipidemia, CKD stage III, GERD was admitted to hospital for elective radical prostatectomy. Before surgery patient developed bradycardia with heart rate of 40 and EKG showed type I Mobitz. Patient denied any chest pain, palpitations, fever or chills. I talked to Dr. Fofana he recommended to admi t the patient for possible pacemaker placement. His vital signs significant for hypertensive urgency with systolic blood pressure of 200. Problems (1) Bradycardia Status: Acute Problem Text: EKG showed sinus bradycardia with type I Mobitz We'll repeat EKG Appreciate/agree with light oil operator consult, most likely patient will need pacemaker. I talked to Dr Sparrow he rec Atropine 0.5 as needed if heart rate less than 40 Echo ordered (2) Hypertension Status: Chronic Problem Text: Lisinopril 20 mg once now Lisinopril 20 mg daily (3) Hyperlipidemia Status: Chronic Problem Text: Continue statin (4) CKD (chronic kidney disease) stage 3, GFR 30-59 ml/min Status: Chronic Problem Text: BMP ordered Continue to monitor creatinine Plan / VTE VTE Prophylaxis Ordered?: Yes GHISLAINE ACOSTA DO Apr 27, 2021 16:03
[2021-04-27] MEDS ORDERED: fentaNYL 100 MCG/2 ML INJECTION (J3010) IV PRN (16:20)
[2021-04-27] MEDS ORDERED: ONDANSETRON 4MG/2ML VIAL IV PRN (16:20)
[2021-04-27] MEDS ORDERED: PERCOCET 5MG/325MG TAB PO PRN (16:20)
[2021-04-27] MEDS ORDERED: METOCLOPRAMIDE INJ 10MG/2ML VIAL (J2765 PER 1) IV PRN (16:20)
[2021-04-27] MEDS ORDERED: LR 1,000 ML IV SCH (16:20)
[2021-04-27 16:50] LABS: HEMATOCRIT 45.3 % (42.0-52.0); HEMOGLOBIN 14.9 g/dl (13.5-17.5); MEAN CORPUSCULAR HEMOGLOBIN 31.6 pg (27.0-33.0); MEAN CORPUSCULAR HGB CONC 32.9 g/dl (32.0-36.5); PLATELET COUNT, AUTOMATED 149 10^3/uL (150-450); RED BLOOD COUNT 4.72 10^6/uL (4.30-6.10); WHITE BLOOD COUNT 8.9 10^3/uL (4.0-10.0)
[2021-04-27 16:53] LABS: ALBUMIN 3.9 GM/DL (3.2-5.2); ALT/SGPT 26 U/L (12-78); BLOOD UREA NITROGEN 18 MG/DL (7-18); CALCIUM LEVEL 9.4 MG/DL (8.8-10.2); CARBON DIOXIDE LEVEL 29 MEQ/L (21-32); CHLORIDE LEVEL 111 MEQ/L (98-107); CREATININE FOR GFR 1.09 MG/DL (0.70-1.30); GLOMERULAR FILTRATION RATE > 60.0 (>42); GLUCOSE, FASTING 86 MG/DL (70-100); MAGNESIUM LEVEL 2.7 MG/DL (1.8-2.4); POTASSIUM SERUM 4.5 MEQ/L (3.5-5.1); SODIUM LEVEL 143 MEQ/L (136-145); TOTAL PROTEIN 7.1 GM/DL (6.4-8.2)
[2021-04-27 17:24] VITALS: BP 149/62
[2021-04-27] MEDS: ACETAMINOPHEN TAB 650MG DOSE (2X325MG) PO PRN (17:37)
[2021-04-27 20:00] VITALS: BP 144/64
[2021-04-27] MEDS: HEPARIN SOD (PORCINE) 5000UNITS/ML 1ML VIAL/SYRINGE SC SCH (21:00)
[2021-04-28] VITALS (24 sets, daily range): BP systolic 115–190; BP diastolic 53–88
[2021-04-28] MEDS: ACETAMINOPHEN TAB 650MG DOSE (2X325MG) PO PRN ×3 (00:14→20:44)
--- NOTE | 2021-04-28 02:38 | IPNPDOC ---
Text Note Date of Service The patient was seen on 04/28/21. NOTE time of service 235am Per d/w the patient's RN the patient's HR has dropped as low as the 27s, but the patient remains asymptomatic and his SBP is in the 150s. At the time of my evaluation the patient was asleep but arousable and denied having any chest pain or dyspnea. Plan: transfer to ICU / ask RN to have subcutaneous pacers close by / per d/w will hold off starting Dobutamine drip for now VS,Chrissbone, I+O VS, Fishbone, I+O Laboratory Tests 04/27/21 15:59 04/27/21 16:00 Vital Signs Date Time Temp Pulse Resp B/P (MAP) Pulse Ox O2 Delivery O2 Flow Rate FiO2 04/28/21 00:00 98.2 45 18 157/67 (97) 96 Room Air I&O- Last 24 Hours up to 6 AM 04/28/21 06:00 Intake Total 730 ml Output Total 0 ml Balance 730 ml DEBRA MEJIA MD Apr 28, 2021 02:38
[2021-04-28 04:54] LABS: HEMATOCRIT 46.3 % (42.0-52.0); HEMOGLOBIN 15.1 g/dl (13.5-17.5); MEAN CORPUSCULAR HEMOGLOBIN 31.6 pg (27.0-33.0); MEAN CORPUSCULAR HGB CONC 32.6 g/dl (32.0-36.5); MEAN CORPUSCULAR VOLUME 96.9 fl (80.0-96.0); PLATELET COUNT, AUTOMATED 139 10^3/uL (150-450); RED BLOOD COUNT 4.78 10^6/uL (4.30-6.10); WHITE BLOOD COUNT 9.5 10^3/uL (4.0-10.0)
[2021-04-28 05:17] LABS: ALBUMIN 3.6 GM/DL (3.2-5.2); ALT/SGPT 24 U/L (12-78); BILIRUBIN,TOTAL 1.2 MG/DL (0.2-1.0); BLOOD UREA NITROGEN 21 MG/DL (7-18); CALCIUM LEVEL 9.2 MG/DL (8.8-10.2); CARBON DIOXIDE LEVEL 24 MEQ/L (21-32); CHLORIDE LEVEL 109 MEQ/L (98-107); CREATININE FOR GFR 1.03 MG/DL (0.70-1.30); GLOMERULAR FILTRATION RATE > 60.0 (>42); GLUCOSE, FASTING 91 MG/DL (70-100); MAGNESIUM LEVEL 2.4 MG/DL (1.8-2.4); POTASSIUM SERUM 4.2 MEQ/L (3.5-5.1); SODIUM LEVEL 139 MEQ/L (136-145); TOTAL PROTEIN 7.4 GM/DL (6.4-8.2)
[2021-04-28] MEDS ORDERED: LR 1,000 ML IV SCH ×2 (06:00→19:25)
[2021-04-28] MEDS: ceFAZolin SOD 2 GM in IV 1 EA IV ONE ×2 (06:00→17:13)
[2021-04-28] MEDS: HEPARIN SOD (PORCINE) 5000UNITS/ML 1ML VIAL/SYRINGE SC SCH ×2 (08:33→20:39)
[2021-04-28] MEDS: OMEPRAZOLE 20 MG CAP PO SCH (08:57)
[2021-04-28] MEDS: SIMVASTATIN 40 MG TAB PO SCH (08:57)
--- NOTE | 2021-04-28 11:47 | IPNPDOC ---
Text Note Date of Service The patient was seen on 04/28/21. NOTE Subjective: Overnight patient's heart rate dropped to 27, patient was transfer red to ICU, subcutaneous pacing was placed. Patient denied any chest pain Objective: GENERAL APPEARANCE: NAD HEENT: no scleral icterus, no JVD, EOMI CARDIOVASCULAR: S1S2, bradycardic at rate 40 LUNGS: CTA ABDOMEN: soft & not tender w palpation MUSCULOSKELETAL: no cyanosis, no swelling INTEGUMENT: no generalized pallor NEUROLOGICAL: cranial nerve function from 2-12 intact, follows commands, speech not dysarthric Assessment/Plan Patient is 76 years old male with past medical history of hypertension, prostate cancer, hyperlipidemia, CKD stage III, GERD was admitted to hospital for elective radical prostatectomy. Before surgery patient developed bradycardia with heart rate of 40 and EKG showed type I Mobitz. Patient denied any chest pain, palpitations, fever or chills. I talked to Dr. Fofana he recommended to admit the patient for possible pacemaker placement. His vital signs significant for hypertensive urgency with systolic blood pressure of 200. Problems (1) Bradycardia EKG showed sinus bradycardia with type I Mobitz I talked to Dr Sparrow he rec Atropine 0.5 as needed if heart rate less than 40. Subcutaneous pacing. Cardiology team will proceed with pacemaker placement today Echo pending (2) Hypertension Continue lisinopril 20 mg daily (3) Hyperlipidemia Continue statin (4) CKD (chronic kidney disease) stage 2 Continue to monitor creatinine VS,Fishbone, I+O VS, Fishbone, I+O Laboratory Tests 04/27/21 15:59 04/27/21 16:00 04/28/21 04:40 Vital Signs Date Time Temp Pulse Resp B/P (MAP) Pulse Ox O2 Delivery O2 Flow Rate FiO2 04/28/21 09:01 44 168/77 (107) 96 Room Air 04/28/21 08:01 97.5 20 I&O- Last 24 Hours up to 6 AM 04/28/21 06:00 Intake Total 730 ml Output Total 120 ml Balance 610 ml GHISLAINE ACOSTA DO Apr 28, 2021 11:46
--- NOTE | 2021-04-28 12:35 | CR ---
CONSULTATION DATE: 04/27/2021 REFERRING PHYSICIAN: Melchor Gilbert DO REASON FOR CONSULTATION: Abnormal EKG. HISTORY OF PRESENT ILLNESS: 76-year-old male well known by the office with a history of hypertension, hyperlipidemia, chronic kidney disease and prostate cancer was recently seen in the office for cardiac evaluation prior to undergoing elective radical prostatectomy. He was found in the office initially to have an abnormal EKG with IVCD and Mobitz I, second degree AV block. He underwent echocardiogram and it revealed a normal LVEF. His nuclear stress test was mildly abnormal but with a normal LVEF. He was referred for a cardiac catheterization and it revealed only mild obstructive CAD. The patient when he completed his stress test was bradycardic with first degree AV block and intermittent Mobitz I. He underwent an exercise nuclear stress test and his heart rate responded but he did not wish to get upgraded. After his cardiac catheterization, he was cleared for his surgery in addition that he may need atropine during his surgery for his bradycardia. He came to the OR today for his prostatectomy and he was found to be markedly bradycardic initially in the high 30s and the plan was to proceed after discussing with the anesthesiologist, who was at the surgery, by giving atropine as needed but he became more bradycardic with a pulse around 30 beats per minute and his rhythm strips revealed intermittent 2:1 AV block. This surgery was canceled and he was admitted to be followed up for further management and monitoring. When I saw Mr. Hughes in the evening, he was supine in bed in no acute distress at rest. He denies any chest pain, shortness of breath, palpitations, pedal edema, dizziness, lightheadedness, syncope or near syncope, focal manifestation. He denies any bleeding. I have discussed with him about the findings and why the surgery was canceled. PAST MEDICAL HISTORY: 1. Hypertension. 2. Hyperlipidemia. 3. Chronic kidney disease. 4. Abnormal EKG. 5. Underlying sick sinus syndrome. 6. High degree AV block. 7. Former smoker. 8. GERD. 9. Arthritis. There is no known history of obstructive CAD, left ventricular systolic dysfunction, significant valvular heart disease, atrial fibrillation/flutter, TIA/CVA, cardiomyopathy, sudden cardiac , diabetes mellitus, thyroid disorders. MEDICATIONS: 1. Lisinopril 20 mg p.o. daily. 2. Omeprazole 20 mg p.o. daily. 3. Simvastatin 40 mg p.o. daily. 4. Alfuzosin 10 mg p.o. daily. PAST SURGICAL HISTORY: Positive for cholecystectomy about 30 years ago. FAMILY HISTORY: Positive for hypertension. His father from car accident. SOCIAL HISTORY: The patient is a former smoker and he denies ETOH abuse. He denies any illicit drugs. ALLERGIES: No known drug allergies. PHYSICAL EXAMINATION: Patient is alert and oriented, in no acute distress at rest and his vital signs when I saw him revealed a blood pressure of 144/64 with a pulse of 48 beats per minute, respirations 16 and his temperature was 98.1 degrees Fahrenheit with an oxygen saturation of 95% on room air. Examination of the head: Atraumatic. Neck is supple and no JVD appreciated. No carotid bruits. Lungs were clear bilaterally on auscultation without any wheezing or crackles. Heart examination revealed an irregular heart sound. No rubs or gallops. The PMI is not displaced. There is no rub. I could not appreciate any murmurs. Abdomen is soft and nontender and bowel sounds are clear. Extremities reveal no pedal edema. Peripheral pulses, dorsalis pedis were +2 and equal. Neurologic examination is negative for focal deficits. LABORATORY DATA: BMP revealed a sodium of 143, potassium 4.5, chloride 111, CO2 29, BUN 18, creatinine 1.09, GFR greater than 60, fasting glucose 86 and calcium 9.4. Magnesium was 2.7. Liver enzymes revealed a total bilirubin of 1.0, AST 16, ALT , albumin 3.9. CBC revealed a WBC of 8.9, hemoglobin 14.9, hematocrit 45.3 and platelets 149,000. SARS COVID-19 PCR was negative. IMPRESSION: A 76-year-old male with above medical problems, was found to have significant AV block, intermittent Mobitz I, first degree AV block and also 2:1 AV block and patient is markedly bradycardiac with underlying IVCD. The case was discussed with EP in [place], [place] and a permanent pacemaker was recommended. This was discussed with the patient and he has agreed to proceed. I have discussed with Dr. Maxim dawn and he has agreed to proceed with a permanent pacemaker implantation on 04/28/2021. The patient currently is not on any AV blocking agent and also not on anticoagulation therapy. His blood pressure was elevated earlier today but it is now normal and will continue the same meds. It was a pleasure to participate in the care of . Randy Hughes for his underlying cardiac condition. I will continue to follow him on admission as needed while in the hospital. The case was discussed earlier today with admitting hospitalist.
[2021-04-28] MEDS ORDERED: fentaNYL 100 MCG/2 ML INJECTION (J3010) As Ordered ONE (15:53)
[2021-04-28] MEDS ORDERED: propofoL 200 MG/20 ML VIAL As Ordered ONE (16:23)
[2021-04-28] MEDS ORDERED: LIDOCAINE 1% SDV 30ML VIAL As Ordered ONE (16:40)
[2021-04-28] MEDS ORDERED: ISOVUE-300 61% 50ML VIAL As Ordered ONE (16:41)
[2021-04-28] MEDS ORDERED: AMIODARONE 150MG/3ML INJ (J0282) As Ordered ONE (16:42)
[2021-04-28] MEDS ORDERED: ceFAZolin 2 GM/D5W 50 ML IV BAG (J0690 PER 500MG) As Ordered ONE (17:11)
[2021-04-28] MEDS ORDERED: ONDANSETRON 4MG/2ML VIAL IV PRN (19:25)
[2021-04-28] MEDS ORDERED: fentaNYL 100 MCG/2 ML INJECTION (J3010) IV PRN (19:25)
--- NOTE | 2021-04-28 19:27 | REP ---
INDICATION: S/P PACEMAKER. COMPARISON: 01/13/2021 TECHNIQUE: Portable FINDINGS: The technique utilized in obtaining the radiograph has magnified the cardiac silhouette and accentuated the interstitial markings. There is cardiomegaly accentuated by technique. Since the last examination a dual chamber bipolar pacemaker device has been placed. The leads are contiguous and appropriate. The lung gan are unchanged. There are no new abnormal opacities. There is no pleural effusion. There is no change in the osseous structures. IMPRESSION: As above <Electronically signed by Navin Pozo > 04/28/211922
--- NOTE | 2021-04-28 22:43 | ECGEPIP ---
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 Heart rate was 66 bpm Electronically Signed on 04-28-2021 22:42:49 EDT by Jemal Sparrow
--- NOTE | 2021-04-28 23:02 | ECGEPIP ---
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 Sinus rhythm with 2:1 AV Block was noted Electronically Signed on 04-28-2021 23:01:50 EDT by Jemal Sparrow
[2021-04-28] MEDS ORDERED: PERCOCET 5MG/325MG TAB PO PRN (23:45)
[2021-04-29] VITALS (16 sets, daily range): BP systolic 118–147; BP diastolic 56–73
[2021-04-29] MEDS: ceFAZolin SOD 1 GM in D5W MINI-BAG PLUS 50 ML IV SCH ×3 (02:41→17:06)
[2021-04-29] MEDS: ACETAMINOPHEN TAB 650MG DOSE (2X325MG) PO PRN (05:47)
--- NOTE | 2021-04-29 06:26 | RO ---
OPERATIVE NOTE DATE OF OPERATION: 04/28/2021 PREOPERATIVE DIAGNOSIS: 1. 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 3. Abnormal electrocardiogram (EKG). 4. Hypertensive heart disease. POSTOPERATIVE DIAGNOSIS: 1. 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 3. Abnormal electrocardiogram (EKG). 4. Hypertensive heart disease. PROCEDURE: Implantation of permanent dual chamber pacemaker. SURGEON: Maxim Knapp MD ANESTHESIOLOGIST: Dr. Nobel ANESTHESIA: Monitored local anesthesia. CLINICAL SUMMARY: This is a 76-year-old retired resident of [place], [place], is known to Dr. Sparrow with multiple coronary risk factors, but prior angiographic evidence of only mild coronary artery disease, hypertensive heart disease and abnormal electrocardiogram (EKG). EKG taken at [facility] in 2017 showed evidence of trifascicular block, but no documented bradyarrhythmia. The patient was admitted April 27, 2021 for a urological procedure related to prostate cancer. In preadmission prior to his elective radical prostatectomy, he was found to have marked bradycardia with rate in the 30s. My pacer service was contacted. Monitored on telemetry. Again recurrent high grade AV block was documented, which rate often in the 30s. The patient was otherwise comfortable, denying any chest pain, shortness of breath or faintness on his low level of activity. On examination, the patient was mildly overweight, slightly barrel chested elderly male, who lay comfortably. HR at 38 beats per minute and irregular. Blood pressure 140/62, respiratory rate 18, O2 saturation 96% on room air. Afebrile. Weight 198 pounds. Height is 68 inches. Body mass index (BMI) 30.1. No pallor or cyanosis. Trachea midline. Trachea was not enlarged. Neck veins did not appear to be elevated. Slightly increased anterior/posterior chest diameter with fair air entry of both lung gan with no apparent abnormal pulmonary adventitious sounds Apical impulse was not palpable. Heart sounds were quite distant. No audible murmur. Brisk carotid upstrokes with increased volume, but irregular related to his arrhythmia. His abdomen was soft. Peripheral pulses were symmetrical and normal. There was +/- distal lower leg pitting. Electrocardiogram (EKG) taken earlier today showed underlying sinus rhythm with atrial rate of 60 beats per minute and ventricular rate of 32 beats per minute (average of 2:1 AV conduction). Obvious left atrial conduction disturbance with left anterior hemiblock and right bundle branch block. Prominent voltage in AVL consistent with left ventricular hypertrophy with primary strain pattern. PA and left lateral chest x-ray showed cardiomegaly with CT ratio of 17.8/35. A tortuous thoracic aortic, but normal pulmonary vasculature. Somewhat hyperinflated lung gan with flattened diaphragms on the lateral projection. No localized infiltrate or pleural effusion. A few stable scattered calcified granulomata and calcified mediastinal lymph nodes unchanged from 06/26/2019. Degenerative changes of the thoracic spine. Complete blood count was normal with hemoglobin 14.9, white blood cell count 8.9, normal platelet count. Electrolytes were normal with potassium 4.5, BUN 18, creatinine 1.1. Random glucose 86. Magnesium 2.4. Normal liver function studies and albumin. COVID antigen test was negative. DESCRIPTION OF PROCEDURE: In the absence of negative chronotropic therapy, where identifiable, reversible condition that would affect his electrical system, we recommended implant of a permanent dual chamber pacemaker. The patient understood and agreed, signing informed consent. In the fasting state, had received Ancef 2 gm IV premedication, the patient was taken to the operating theatre. Numerous skin electrodes were applied to facilitate continuous electrocardiographic monitoring. Self adhesive cardioverting/defibrillating/noninvasive pacing patches were applied in anterior/posterior configuration and connected to a bedside cardioverted defibrillator/pacing system. The left subclavian region was prepped and draped in the usual fashion and the skin was infiltrated with 1% Xylocaine. The left axillary vein was catheterized using the micropuncture technique. A 5 cm linear incision was made several cm below and parallel of the left clavicle. Dissection was carried down to the level of the pectoralis fascia and a pocket was fashioned below the level of the incision line. Two bipolar screw-in active fixation steroid-eluting pacing leads were then positioned to the high rate ventricular outflow tract and right atrial appendage under fluoroscopic electrocardiographic control. The right ventricular lead ([employer]-model number LPA 1200M/58, serial number [id number]). Measurements were: Pacing threshold 0.5 V/0.4 ms/lead impedance 660 ohms. R wave amplitude measured 8.2 mV. The atrial lead ([employer]-model number LPA 1200 M/52, serial number [id number]). Measurements were: Stimulation threshold 1.0 V/0.4 ms/impedance 490 ohms. P wave amplitude measured 3.2 mV. These leads were secured in position using sleeves sutured at their insertion site. They were then connected to a dual chamber pulse generator. (Eqalix-Cartela AB MRI compatible, model number [id number], serial number [id number] and appropriate DDD pacing was documented. The new pacing pulse generator was placed in the pocket and secured in position with a suture through the upper right hand corner of the Epoxy header. The subcutaneous tissues were approximated using a running Chromic suture. The skin was closed using janneth. A dry dressing was applied and the patient was returned to the recovery room in good condition. Estimated blood loss 5-10 mL. No apparent complications. Postoperative portable upright chest x-ray taken in the recovery room was reviewed independently and showed his cardiomegaly, tortuous thoracic aorta with clear lungs and good pacing lead position. No new findings. His postoperative EKG showed underlying sinus rhythm at 62 beats per minute with atrial sensing and tracking with consistent ventricular pacing. With right ventricular outflow tract position, his pace complexes had a normal axis, but still a left bundle branch block pattern. The patient will be monitored overnight on telemetry and should be able to safely proceed with his prostate surgery as previously planned. From out standpoint, he will receive PA and left lateral chest x-ray tomorrow afternoon and electrocardiogram (EKG).We will also administer an additional three doses of Ancef 1 gm IV q 8 hours. Jemal Sparrow M.D. (primary computer terminal operator) MARGARITA
[2021-04-29 09:33] LABS: BASO # 0.1 10^3/uL (0.0-0.2); BASO % 0.9 % (0.0-1.0); EOS # 0.2 10^3/uL (0.0-0.5); HEMATOCRIT 46.1 % (42.0-52.0); HEMOGLOBIN 15.3 g/dl (13.5-17.5); LYMPH # 1.6 10^3/uL (1.5-5.0); MEAN CORPUSCULAR HEMOGLOBIN 31.6 pg (27.0-33.0); MEAN CORPUSCULAR HGB CONC 33.2 g/dl (32.0-36.5); MEAN CORPUSCULAR VOLUME 95.2 fl (80.0-96.0); MONO # 0.8 10^3/uL (0.0-0.8); MONO % 7.2 % (2.0-8.0); NEUTROPHILS # 7.8 10^3/uL (1.5-8.5); NEUTROPHILS % 74.7 % (36.0-66.0); PLATELET COUNT, AUTOMATED 152 10^3/uL (150-450); RED BLOOD COUNT 4.84 10^6/uL (4.30-6.10); WHITE BLOOD COUNT 10.4 10^3/uL (4.0-10.0)
[2021-04-29 09:58] LABS: ALBUMIN 3.8 GM/DL (3.2-5.2); BILIRUBIN,TOTAL 1.3 MG/DL (0.2-1.0); CALCIUM LEVEL 9.6 MG/DL (8.8-10.2); CREATININE FOR GFR 1.33 MG/DL (0.70-1.30); GLOMERULAR FILTRATION RATE 55.5 (>42); MAGNESIUM LEVEL 2.2 MG/DL (1.8-2.4); POTASSIUM SERUM 4.3 MEQ/L (3.5-5.1); TOTAL PROTEIN 7.2 GM/DL (6.4-8.2)
[2021-04-29] MEDS: OMEPRAZOLE 20 MG CAP PO SCH (10:09)
[2021-04-29] MEDS: HEPARIN SOD (PORCINE) 5000UNITS/ML 1ML VIAL/SYRINGE SC SCH (10:09)
[2021-04-29] MEDS: SIMVASTATIN 40 MG TAB PO SCH (10:10)
[2021-04-29] MEDS ORDERED: PERCOCET PO (10:36)
--- NOTE | 2021-04-29 14:41 | DS.PDOC ---
Discharge Summary General Date of Admission Apr 27, 2021 at 10:36 Date of Discharge 04/29/21 Discharge Summary PROCEDURES PERFORMED DURING STAY: [None]. ADMITTING DIAGNOSES: Bradycardia Hypertension Hyperlipidemia CKD (chronic kidney disease) stage 2 DISCHARGE DIAGNOSES: Bradycardia Hypertension Hyperlipidemia CKD (chronic kidney disease) stage 2 COMPLICATIONS/CHIEF COMPLAINT: Prostate Cancer. HISTORY OF PRESENT ILLNESS: Patient is 76 years old male with past medical history of hypertension, prostate cancer, hyperlipidemia, CKD stage III, GERD was admitted to hospital for elective radical prostatectomy. Before surgery patient developed bradycardia with heart rate of 40 and EKG showed type I Mobitz. Patient denied any chest pain, palpitations, fever or chills. I talked to Dr. Fofana he recommended to admit the patient for possible pacemaker placement. His vital signs significant for hypertensive urgency with systolic blood pressure of 200. HOSPITAL COURSE: During the hospital stay the following issue addressed (1) Bradycardia EKG showed sinus bradycardia with type I Mobitz Patient received treatment with rec Atropine 0.5 as needed And subcutaneous pacing. Cardiology team placed pacemaker placement yesterday Echo pending (2) Hypertension Continue lisinopril 20 mg daily (3) Hyperlipidemia Continue statin (4) CKD (chronic kidney disease) stage 2 Continue to monitor creatinine DISCHARGE MEDICATIONS: Please see below. ALLERGIES: Please see below. PHYSICAL EXAMINATION ON DISCHARGE: VITAL SIGNS: Please see below. GENERAL APPEARANCE: NAD HEENT: no scleral icterus, no JVD, EOMI CARDIOVASCULAR: S1S2, pacemaker in place LUNGS: CTA ABDOMEN: soft & not tender w palpation MUSCULOSKELETAL: no cyanosis, no swelling INTEGUMENT: no generalized pallor NEUROLOGICAL: cranial nerve function from 2-12 intact, follows commands, speech not dysarthric LABORATORY DATA: Please see below. PROGNOSIS: Fair ACTIVITY: [As tolerated]. DIET: Cardiac DISPOSITION: Home ITEMS TO FOLLOWUP ON ON OUTPATIENT: Follow-up with publishing director and urologist DISCHARGE CONDITION: [Stable]. TIME SPENT ON DISCHARGE: 40 minutes. Vital Signs/I&Os Vital Signs Date Time Temp Pulse Resp B/P (MAP) Pulse Ox O2 Delivery O2 Flow Rate FiO2 04/29/21 10:10 139/65 04/29/21 07:30 97.0 60 16 94 Room Air 04/28/21 19:15 2.0 l I&O- Last 24 Hours up to 6 AM 04/29/21 06:00 Intake Total 2650 ml Output Total 2500 ml Balance 150 ml Laboratory Data Labs 24H Laboratory Tests 2 04/29/21 09:09: Immature Granulocyte % (Auto) 0.2, Neutrophils (%) (Auto) 74.7H, Lymphocytes (%) (Auto) 15.0L, Monocytes (%) (Auto) 7.2, Eosinophils (%) (Auto) 2.0, Basophils (%) (Auto) 0.9, Neutrophils # (Auto) 7.8, Lymphocytes # (Auto) 1.6, Monocytes # (Auto) 0.8, Eosinophils # (Auto) 0.2, Basophils # (Auto) 0.1, Nucleated Red Blood Cells % (auto) 0.0, Anion Gap 6L, Glomerular Filtration Rate 55.5, Calcium Level 9.6, Magnesium Level 2.2, Total Bilirubin 1.3H, Aspartate Amino Transf (AST/SGOT) 26, Alanine Aminotransferase (ALT/SGPT) 25, Alkaline Phosphatase 79, Total Protein 7.2, Albumin 3.8, Albumin/Globulin Ratio 1.1 CBC/BMP Laboratory Tests 04/29/21 09:09 Discharge Medications Scheduled Alfuzosin HCl (Alfuzosin HCl ER) 10 Mg Tab.er.24h, 1 TAB PO DAILY, (Reported) Lisinopril (Lisinopril) 20 Mg Tab, 20 MG PO DAILY, (Reported) Omeprazole (Omeprazole) 20 Mg Cap, 20 MG PO DAILY, (Reported) Simvastatin (Simvastatin) 40 Mg Tab, 40 MG PO DAILY, (Reported) Scheduled PRN Oxycodone/Acetaminophen (Oxycodone-Acetaminophen 5-325) 1 Each Tablet, 1 TAB PO Q6HP PRN for MODERATE PAIN (PS 5-7) Allergies Coded Allergies: No Known Allergies (Unverified , 04/19/21) GHISLAINE ACOSTA DO Apr 29, 2021 14:41
--- NOTE | 2021-04-29 16:19 | REP ---
INDICATION: Post pacer implant. COMPARISON: Comparison portable chest x-ray April 28, 2021. TECHNIQUE: Two views.. FINDINGS: The lungs are symmetrically aerated and clear. Pleural angles are sharp. There is no evidence of pneumothorax, hydrothorax, or hematoma. A bipolar pacemaker is seen in place via the left side. There are clips in right upper quadrant of the abdomen. Granulomatous calcific residuals are seen in the left hilus and left mid lung zone. Heart is not felt to be enlarged. IMPRESSION: No active disease. Pacemaker in place. <Electronically signed by Andrew Garcia > 04/29/21 [id number]
--- NOTE | 2021-04-30 00:29 | ECGEPIP ---
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 No remarkable changes. Electronically Signed on 04-30-2021 0:29:15 EDT by Jemal Sparrow
--- NOTE | 2021-05-01 16:36 | ECHO ---
ECHOCARDIOGRAM DATE OF PROCEDURE: 04/28/2021 Age: 76 Gender: Male Height: 173 cm Weight: 90 kg REFERRING PROVIDER: Scot Gilbert M.D. PATIENT LOCATION: Room 3219. REASON FOR THE ECHOCARDIOGRAM: Cardiac dysrhythmia. MEASUREMENTS: 2D Measurements: IVS 1.4 cm LV 5.2 cm LVPW 0.9 cm LA 4.0 cm Aorta 3.2 cm IVC 1.6 cm Doppler Measurements: Peak velocity across the aortic valve 1.5 m/sec Peak velocity across the LVOT 0.91 m/sec Peak gradient across the aortic valve 9 mmHg Mean gradient across the aortic valve 5 mmHg Mitral E 0.64 Mitral A 0.61 with a ratio of 1.0 Maximum tricuspid valve velocity 2.5 m/sec 2D COMMENTS: 1. Normal left ventricular size, probably increased left ventricular wall thickness. Low normal global left ventricular systolic ejection fraction estimated at 50-55%. 2. Borderline enlarged left atrium. Subsequently, the right atrium appeared to be also mildly enlarged. Normal right ventricle. 3. The atrial septum appeared to be normal without evidence of defect or shunt. 4. Normal aortic root. 5. No pericardial effusion seen. 6. Mildly calcified aortic valve with normal leaflet excursion. Mildly calcified mitral annulus with normal anterior mitral valve leaflet motion. Normal tricuspid valve and pulmonic valve. The proximal pulmonary artery branches were not well visualized. 7. The inferior vena cava was normal in size. Central venous pressure is most likely normal. DOPPLER: It detects mild tricuspid regurgitation. The calculated pulmonary artery systolic pressure varies between 30-40 mmHg. Assessment of the left ventricular diastolic function appeared to be normal. IMPRESSION: 1. Low normal global left ventricular systolic function. Assessment of the left ventricular diastolic function appeared to be normal. 2. Aortic valve sclerosis with trivial aortic stenosis. No aortic regurgitation. 3. Isolated mitral annulus calcification. The left atrium appeared to be borderline enlarged. No evidence of significant mitral regurgitation or mitral stenosis. 4. Mild tricuspid regurgitation with mild pulmonary hypertension and the right atrium appeared to be mildly enlarged. 5. Patient was noted during the test to be bradycardic with a heart rate as low as 40 beats per minute. 6. Global longitudinal strain was calculated at -14.1%.
== END 2021-04-29 18:20 | disposition home or self-care (01) | DRG 244 ==
LOC: M OR 10:36 → M PCU 17:07
PROVIDERS: ADMIT Urology; ATTEND Internal Medicine
PROC: 0JH606Z Insertion of Pacemaker, Dual Chamber into Chest Subcutaneous Tissue and Fascia, Open Approach (ICD-10-PCS; principal; 2021-04-29)
PROC: 02HK3JZ Insertion of Pacemaker Lead into Right Ventricle, Percutaneous Approach (ICD-10-PCS; 2021-04-29)
PROC: 02H63JZ Insertion of Pacemaker Lead into Right Atrium, Percutaneous Approach (ICD-10-PCS; 2021-04-29)
DX: R00.1 Bradycardia, unspecified (principal); E78.5 Hyperlipidemia, unspecified; N18.2 Chronic kidney disease, stage 2 (mild); K21.9 Gastro-esophageal reflux disease without esophagitis; I12.9 Hypertensive chronic kidney disease with stage 1 through stage 4 chronic kidney disease, or unspecified chronic kidney disease; Z87.891 Personal history of nicotine dependence; Z85.828 Personal history of other malignant neoplasm of skin; C61 Malignant neoplasm of prostate; Z79.899 Other long term (current) drug therapy; Z20.822 Contact with and (suspected) exposure to COVID-19; I44.0 Atrioventricular block, first degree

== ENCOUNTER → 2021-06-02 | Outpatient (CLI) | payer MEDICARE ==
[~2021-06-02] MED LIST changes: +ACET650T61 PO; -HEPARIN SOD (PORCINE) 5000UNITS/ML 1ML VIAL/SYRINGE SQ SCH; -LIDOCAINE 1% MDV 20ML VIAL SQ PRN; -LIDOCAINE 2% 100MG/5ML SDV (FOR ANES.) As Ordered ONE; -LR 1,000 ML IV ONE; -ONDANSETRON 4MG/2ML VIAL As Ordered ONE; +PERCOCET PO; -ROCURONIUM BROMIDE 50 MG/5 ML VIAL As Ordered ONE; -SUGAMMADEX SODIUM 500 MG/5 ML VIAL (BRIDION) As Ordered ONE; -ceFAZolin SOD 2 GM in IV 1 EA IV ONE; -dexameTHASONE 4 MG/ML 1ML VIAL (J1100 PER 1MG) As Ordered ONE; -fentaNYL 100 MCG/2 ML INJECTION (J3010) As Ordered ONE; -propofoL 200 MG/20 ML VIAL As Ordered ONE
[2021-06-02 15:35] LABS: HEMATOCRIT 47.4 % (42.0-52.0); HEMOGLOBIN 15.5 g/dl (13.5-17.5); MEAN CORPUSCULAR HEMOGLOBIN 31.6 pg (27.0-33.0); MEAN CORPUSCULAR HGB CONC 32.7 g/dl (32.0-36.5); MEAN CORPUSCULAR VOLUME 96.7 fl (80.0-96.0); PLATELET COUNT, AUTOMATED 160 10^3/uL (150-450)
[2021-06-02 15:52] LABS: CALCIUM LEVEL 9.8 MG/DL (8.8-10.2); CREATININE FOR GFR 1.28 MG/DL (0.70-1.30); POTASSIUM SERUM 4.8 MEQ/L (3.5-5.1)
== END ==
LOC: M PLALAB 12:34
PROVIDERS: ATTEND Family Medicine
DX: Z01.818 Encounter for other preprocedural examination (principal); C61 Malignant neoplasm of prostate

== ENCOUNTER → 2021-06-02 | Outpatient (CLI) | payer MEDICARE | LOC: M LABSMTC 10:30 | PROVIDERS: ATTEND Anesthesiology | DX: Z01.812 Encounter for preprocedural laboratory examination (principal); Z20.822 Contact with and (suspected) exposure to COVID-19; C61 Malignant neoplasm of prostate | CPT/HCPCS: 36415; 80048; 85027; 87086; U0003 ==

== ENCOUNTER 2021-06-07 11:24 | Inpatient (IN) | payer MEDICARE ==
[~2021-06-07] VITALS: Ht 172.7 cm; Wt 88.0 kg
[~2021-06-07 11:24] MED LIST changes: +HEPARIN SOD (PORCINE) 5000UNITS/ML 1ML VIAL/SYRINGE SQ ONE; +LIDOCAINE 1% MDV 20ML VIAL SQ PRN; +LR 1,000 ML IV ONE; +ceFAZolin SOD 2 GM in IV 1 EA IV ONE
--- OUTSIDE RECORDS SUMMARY | 2021-06-07 11:29 | CCD ---
Author Author [facility] Organization [facility] Address Unknown Phone Unavailable Care Team Providers Care Professional Nurse Name Role Phone Sai Andrews Unavailable PROBLEMS Type Condition ICD9-CM Code [id number]-HE Code Onset Dates Condition S tatus W/U Status Risk SNOMED Code Notes Problem Elevated PSA R97.2 Active confirmed 1447579 05 Problem Shoulder joint painful on movement M25.519 Activ e confirmed 373310889 Problem Lower urinary tract symptoms due to benign prost atic hyperplasia N40.1 Active confirmed 708778059 Problem Venous stasis dermatitis of right lower extremity I87.2 Active confirmed 71463661 Problem Enlarged prostate with lower urinary tract symptoms N40.1 Active confirmed 71930876733294 Problem Benign prostatic hyperplasia with lower urinary tract symptoms N40.1 Active confirmed 212528470 Problem Hypertensive heart disease without heart failure I 11.9 Active confirmed 56298277 Problem Prostate cancer screening Z12.5 Active confirmed 528875563 Problem Stage 3a chronic kidney disease N18.31 Active confi rmed 853303999 Problem Prediabetes R73.03 Active confirmed 54778173 2 Problem Chronic GERD K21.9 Active confirmed 1950280 09 Problem Bilateral sensorineural hearing loss H90.3 Act toni confirmed 803296234 Problem Second degree atrioventricular block I44.1 Act toni confirmed 936780676 Problem Dyslipidemia E78.5 Active confirmed 7650463 07 Problem Hx of seborrheic keratosis Z87.2 Active confirmed 735756690 Problem Encounter for preprocedural laboratory examination Z01.812 Active confirmed 781063518 Problem Primary insomnia F51.01 Active confirmed 397 2004 Problem Reflux esophagitis K21.0 Active confirmed 2 81656700 Problem Osteoarthrosis, 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 Active conf irmed 19900729 Problem Elevated prostate specific antigen (PSA) R97.20 Active confirmed 506260863 Problem Prostate cancer C61 Active confirmed 2549 51288 Problem Preop testing Z01.818 Active confirmed 68550 9001 Problem UTI (urinary tract infection) N39.0 Active confirm ed 86428283 ALLERGIES No Known Allergies ENCOUNTERS from 1945 to 2021-05-03 Encounter Location Date Provider Diagnosis [facility] Urology [address] [phone] [place] [address] Apr, Sai Andrews IMMUNIZATIONS Vaccine Route Administration Date Status Moderna #1 dose COVID-19(given elsewhere) SARSCOV2 VAC 100MCG/0.5ML IM IM Intramuscular November 18, 2020 Administered Moderna #2 dose COVID-19(given elsewhere) SARSCOV2 VAC 100MCG/0.5ML IM IM Intramuscular December 20, 2020 Administered Pneumococcal Adult 0.5mL Pneumovax 23 IM Intramuscular February 23, 2021 Administered TDAP 0.5mL (Boostrix) IM Intramuscular Sep 06, 2016 Administe red Pneumococcal 0.5mL Prevnar 13 IM Intramuscular Aug 25, 2015 A dministered SOCIAL HISTORY Tobacco Use: Social History Observation Description Date Details (start date - stop date) Former Smoker Sex Assigned At : Social History Observation Description Sex Assigned At Unknown Education: Question Answer Notes Level of Education: Finished High School Audit Question Answer Notes Total Score: 0 Interpretation: Alcohol Education Sexual Hx: Question Answer Notes Had sex in the last 12 months (vaginal, oral, or anal)? Yes Have you ever had an STD? No with Women only Use protection? No Drug and Alcohol Question Answer Notes Total Score: 0 Interpretation: No problems reported Alcohol Screening: Question Answer Notes Did you have a drink containing alcohol in the past year? No Points 0 Interpretation Negative BMI Care Goal Follow-Up Question Answer Notes Above Normal BMI Follow-Up Dietary management educatio n, guidance, and counseling Tobacco Use: Question Answer Notes Are you a: former smoker Quit 2016 Additional Findings: Tobacco User None How long has it been since you last smoked? 1-5 years REASON FOR REFERRAL No Information VITAL SIGNS No information MEDICATIONS Medication SIG (Take, Route, Frequency, Duration) Notes Start Da te End Date Status Tylenol 8 Hour 650 MG 2 tablets as needed Orally every 8 hrs Active Alfuzosin HCl ER 10 MG TAKE 1 TABLET BY MOUTH IMMED IATELY AFTER THE SAME MEAL ONCE DAILY for 90 Active Omeprazole 20 MG 1 tablet 30 minutes before m orning meal Orally Once a day for 90 day(s) Aug, Active Lisinopril 20 MG 1 tablet Orally Once a day for 90 days Aug, Active Simvastatin 40 MG 1 tablet in the evening Oral Once a day for 90 days Active PROCEDURES No Information RESULTS No Results REASON FOR VISIT Surgery Canceled, Eligard Injection MEDICAL (GENERAL) HISTORY Type Description Date Medical History HTN (hypertension) Medical History Osteoarthrosis, shoulder region Medical History Hyperlipidemia Medical History Chronic kidney disease stage 3 Medical History Reflux esophagitis Medical History Hx of Tobacco use disorder Medical History Hx of seborrheic keratosis Surgical History Gall bladder around 30 years ago Surgical History Colonoscopy 11/2015 Surgical History elizabeth eyelids for ptosis 11/2016 Surgical History trus Hospitalization History [id number]-[id number] disc 01/2019 Goals Section No Information Health Concerns No Information MEDICAL EQUIPMENT No Information MENTAL STATUS No Information FUNCTIONAL STATUS No Information ASSESSMENTS No Information PLAN OF TREATMENT Medication Medication Name Sig Start Date Stop Date Omeprazole 20 MG 1 tablet 30 minutes before m orning meal Orally Once a day for 90 day(s) Aug, Lisinopril 20 MG 1 tablet Orally Once a day for 90 days Aug, Simvastatin 40 MG 1 tablet in the evening Oral Once a day for 90 days Next Appt Details Provider Name:Sai Andrews, 08:30:00 AM, [address], , [place], [address], Provider Name:Vanesa Ibarra, 2021-08 09:30:00 AM, [address], , [place], [address], Insurance Providers Payer Name Payer Address Payer Phone Insured Name Patient Relati onship to Insured Coverage Start Date Coverage End Date [facility] [id number] [facility] [phone] ROMULO HUGHES
--- OUTSIDE RECORDS SUMMARY | 2021-06-07 11:29 | CCD ---
Author Author [facility] Organization [facility] Address Unknown Phone Unavailable Care Team Providers Care Salesperson Men'S [employer] Boys' Clothing Name Role Phone Sai Andrews Unavailable PROBLEMS Type Condition ICD9-CM Code [id number] Code Onset Dates Condition S tatus W/U Status Risk SNOMED Code Notes Problem Elevated PSA R97.2 Active confirmed 4930071 05 Problem Shoulder joint painful on movement M25.519 Activ e confirmed 034131497 Problem Lower urinary tract symptoms due to benign prost atic hyperplasia N40.1 Active confirmed 290604344 Problem Venous stasis dermatitis of right lower extremity I87.2 Active confirmed 15326366 Problem Enlarged prostate with lower urinary tract symptoms N40.1 Active confirmed 77947150833799 Problem Benign prostatic hyperplasia with lower urinary tract symptoms N40.1 Active confirmed 034483497 Problem Hypertensive heart disease without heart failure I 11.9 Active confirmed 37831415 Problem Prostate cancer screening Z12.5 Active confirmed 917392918 Problem Stage 3a chronic kidney disease N18.31 Active confi rmed 193331746 Problem Prediabetes R73.03 Active confirmed 09172926 2 Problem Chronic GERD K21.9 Active confirmed 9982277 09 Problem Bilateral sensorineural hearing loss H90.3 Act toni confirmed 441084369 Problem Second degree atrioventricular block I44.1 Act toni confirmed 484231355 Problem Dyslipidemia E78.5 Active confirmed 4538021 07 Problem Hx of seborrheic keratosis Z87.2 Active confirmed 113712278 Problem Encounter for preprocedural laboratory examination Z01.812 Active confirmed 442993388 Problem Primary insomnia F51.01 Active confirmed 397 2004 Problem Reflux esophagitis K21.0 Active confirmed 2 57546072 Problem Osteoarthrosis, 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 Active conf irmed 47595341 Problem Elevated prostate specific antigen (PSA) R97.20 Active confirmed 219907808 Problem Prostate cancer C61 Active confirmed 2549 33042 Problem Preop testing Z01.818 Active confirmed 71892 9001 Problem UTI (urinary tract infection) N39.0 Active confirm ed 27505149 ALLERGIES No Known Allergies ENCOUNTERS from 1945 to 2021-05-02 Encounter Location Date Provider Diagnosis [facility] Urology [address] [phone] [place] [address] Apr, Sai Andrews IMMUNIZATIONS Vaccine Route Administration [...] Information RESULTS No Results REASON FOR VISIT Abdominal pain MEDICAL (GENERAL) HISTORY Type Description Date Medical [...] ptosis 11/2016 Surgical History trus Hospitalization History FPX-XR-zxuihti disc 01/2019 Goals Section No Information Health [...] Appt Details Provider Name:Sai Andrews, 08:30:00 AM, [address], , [place], [address], Provider Name:Vanesa Ibarra, 2021-08 09:30:00 AM, [address], , [place], [address], Insurance Providers Payer Name Payer Address Payer Phone Insured Name Patient Relati onship to Insured Coverage Start Date Coverage End Date [facility] [address] [facility] [address] [phone] ROMULO HUGHES
--- OUTSIDE RECORDS SUMMARY | 2021-06-07 11:29 | CCD ---
Author Author [facility] Organization [facility] Address Unknown Phone Unavailable Care Team Providers Care Automobile Service Station Manager Name Role Phone Sai Andrews Unavailable PROBLEMS Type Condition ICD9-CM Code JHW86-BI Code Onset Dates Condition S tatus W/U Status Risk SNOMED Code Notes Problem Elevated PSA R97.2 Active confirmed 6811556 05 Problem Shoulder joint painful on movement M25.519 Activ e confirmed 457515548 Problem Lower urinary tract symptoms due to benign prost atic hyperplasia N40.1 Active confirmed 916930062 Problem Venous stasis dermatitis of right lower extremity I87.2 Active confirmed 34984195 Problem Enlarged prostate with lower urinary tract symptoms N40.1 Active confirmed 78379496886089 Problem Benign prostatic hyperplasia with lower urinary tract symptoms N40.1 Active confirmed 387859460 Problem Hypertensive heart disease without heart failure I 11.9 Active confirmed 00743189 Problem Prostate cancer screening Z12.5 Active confirmed 666132284 Problem Stage 3a chronic kidney disease N18.31 Active confi rmed 748282967 Problem Prediabetes R73.03 Active confirmed 49431237 2 Problem Chronic GERD K21.9 Active confirmed 9279075 09 Problem Bilateral sensorineural hearing loss H90.3 Act toni confirmed 760296944 Problem Second degree atrioventricular block I44.1 Act toni confirmed 012681440 Problem Dyslipidemia E78.5 Active confirmed 0134658 07 Problem Hx of seborrheic keratosis Z87.2 Active confirmed 861176145 Problem Encounter for preprocedural laboratory examination Z01.812 Active confirmed 924758590 Problem Primary insomnia F51.01 Active confirmed 397 2004 Problem Reflux esophagitis K21.0 Active confirmed 2 30368361 Problem Osteoarthrosis, 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 Active conf irmed 08843553 Problem Elevated prostate specific antigen (PSA) R97.20 Active confirmed 613810661 Problem Prostate cancer C61 Active confirmed 2549 98677 Problem Preop testing Z01.818 Active confirmed 55918 9001 Problem UTI (urinary tract infection) N39.0 Active confirm ed [id number] ALLERGIES No Known Allergies ENCOUNTERS from 1945 to 2021-05-03 Encounter Location Date Provider Diagnosis [facility] Urology [address] [phone] [place] [address] 13 Apr, 2021 Sai Andrews IMMUNIZATIONS Vaccine Route Administration Date [...] Information RESULTS No Results REASON FOR VISIT fransisca diaz MEDICAL (GENERAL) HISTORY Type Description Date Medical [...] ptosis 11/2016 Surgical History trus Hospitalization History [id number] disc 01/2019 Goals Section No Information Health [...] Appt Details Provider Name:Sai Andrews, 08:30:00 AM, [address], , [place], [address], Provider Name:Vanesa Ibarra, 2021-08 09:30:00 AM, [address], , [place], [address], Insurance Providers Payer Name Payer Address Payer Phone Insured Name Patient Relati onship to Insured Coverage Start Date Coverage End Date [facility] [address] [facility] [phone] ROMULO HUGHES
--- OUTSIDE RECORDS SUMMARY | 2021-06-07 11:29 | CCD ---
Continuity of Care Document (CCD) Created on: 05/09/2021 Randy Hughes External Reference #: [id number] : 1945 Sex: Male Author Author Randy VEE PA Organization Unknown Address [address], [place] [address] Phone [phone] Care Team Providers Care Tractor Driver Name Role Phone Jemal Sparrow MD AUTM [phone] Vanesa Ibarra DO AUTM [phone] Sai Andrews MD AUTM [phone] Problems Active Problems Provider Date Cardiac pacemaker in situ ESTRELLITA Wan Onset: 04/20 Social History Type Date Description Comments Sex Unknown Allergies, Adverse Reactions, Alerts Description No Information Available Medications Description No Information Available Immunizations Description No Information Available Vital Signs Description No Information Available Results Description No Information Available Procedures Date Code Description Status 05/06/2021 69981 Office/Outpatient Established Mi nimal Problem(S) Completed Medical Devices Description No Information Available Encounters Type Date Location Provider Dx Diagnosis Office Visit 05/06/2021 9:30a Main Office ESTRELLITA Wan Z95 .0 Presence of cardiac pacemaker Assessments Date Code Description Provider 05/06/2021 Z95.0 Presence of cardiac pacemaker Ca ESTRELLITA Rosado Plan of Treatment 05/06/2021 - ESTRELLITA Wan* Z95.0 Presence of cardiac pacemaker* Recommendations:* Recommendations: 1. You may resume driving and may shower tomorrow. 2. Do not soak in a bath tub or hot tub for another week. 3. Continue to limit the use of your left arm for another week - no lifting your shoulder above 90 degrees and no lifting, pulling or pushing more than 10 lbs. * All * Follow up:* With Dr. Sparrow Functional Status Description No Information Available Mental Status Description No Information Available Referrals Description No Information Available
--- OUTSIDE RECORDS SUMMARY | 2021-06-07 11:29 | CCD ---
Author Author [facility] Organization [facility] Address Unknown Phone Unavailable Care Team Providers Care Coremaking Machine Setter Name Role Phone Sai Andrews Unavailable PROBLEMS Type Condition ICD9-CM Code JLB79-ML Code Onset Dates Condition S tatus W/U Status Risk SNOMED Code Notes Problem Elevated PSA R97.2 Active confirmed 7962833 05 Problem Shoulder joint painful on movement M25.519 Activ e confirmed 926441666 Problem Lower urinary tract symptoms due to benign prost atic hyperplasia N40.1 Active confirmed 486908124 Problem Venous stasis dermatitis of right lower extremity I87.2 Active confirmed 89824237 Problem Enlarged prostate with lower urinary tract symptoms N40.1 Active confirmed 07799648215980 Problem Benign prostatic hyperplasia with lower urinary tract symptoms N40.1 Active confirmed 626792191 Problem Hypertensive heart disease without heart failure I 11.9 Active confirmed 80148888 Problem Prostate cancer screening Z12.5 Active confirmed 207235846 Problem Stage 3a chronic kidney disease N18.31 Active confi rmed 732502304 Problem Prediabetes R73.03 Active confirmed 41599609 2 Problem Chronic GERD K21.9 Active confirmed 6323033 09 Problem Bilateral sensorineural hearing loss H90.3 Act toni confirmed 852463206 Problem Second degree atrioventricular block I44.1 Act toni confirmed 236634580 Problem Dyslipidemia E78.5 Active confirmed 4720267 07 Problem Hx of seborrheic keratosis Z87.2 Active confirmed 059248298 Problem Encounter for preprocedural laboratory examination Z01.812 Active confirmed 450859124 Problem Primary insomnia F51.01 Active confirmed 397 2004 Problem Reflux esophagitis K21.0 Active confirmed 2 40571571 Problem Osteoarthrosis, 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 Urology [address] [phone] [place] [address] 13 Apr, 2021 Sai Andrews IMMUNIZATIONS Vaccine [...] Information RESULTS No Results REASON FOR VISIT eligard 7.5mg auth MEDICAL (GENERAL) HISTORY Type Description Date Medical [...] ptosis 11/2016 Surgical History trus Hospitalization History LJZ-SO-[id number] disc 01/2019 Goals Section No Information Health [...] Appt Details Provider Name:Sai Andrews, 08:30:00 AM, [address], , [place], [address], Provider Name:Vanesa Ibarra, 2021-08 09:30:00 AM, [address], , [place], [address], Insurance Providers Payer Name Payer Address Payer Phone Insured Name Patient Relati onship to Insured Coverage Start Date Coverage End Date [facility] [address] [facility] [address] ROMULO HUGHES
--- OUTSIDE RECORDS SUMMARY | 2021-06-07 11:29 | CCD | Continuity of Care Document ---
Author Author Randy VEE [facility] Organization Unknown Address [address], [place] [address] Phone [phone] Care Team Providers Care Interior Mechanic Name Role Phone Jemal Sparrow MD AUTM [phone] Vanesa Ibarra DO AUTM [phone] Sai Andrews MD AUTM [phone] Problems Active Problems Provider Date Cardiac pacemaker in situ ESTRELLITA Wan Onset: 04/20 Social History Type Date Description Comments Sex Unknown Allergies, Adverse Reactions, Alerts Description No Information Available Medications Description No Information Available Immunizations Description No Information Available Vital Signs Description No Information Available Results Description No Information Available Procedures Date Code Description Status 05/06/2021 47095 Office/Outpatient Established Mi nimal Problem(S) Completed Medical [...]
--- OUTSIDE RECORDS SUMMARY | 2021-06-07 11:29 | CCD ---
Author Author [facility] Organization [facility] Address Unknown Phone Unavailable Care Team Providers Care Hook And Eye Sewing Machine Operator Name Role Phone Sai Andrews Unavailable PROBLEMS Type Condition ICD9-CM Code HVW35-PL Code Onset Dates Condition S tatus W/U Status Risk SNOMED Code Notes Problem Elevated PSA R97.2 Active confirmed 8031712 05 Problem Shoulder joint painful on movement M25.519 Activ e confirmed 511157838 Problem Lower urinary tract symptoms due to benign prost atic hyperplasia N40.1 Active confirmed 684926925 Problem Venous stasis dermatitis of right lower extremity I87.2 Active confirmed 48306021 Problem Enlarged prostate with lower urinary tract symptoms N40.1 Active confirmed 01326478346555 Problem Benign prostatic hyperplasia with lower urinary tract symptoms N40.1 Active confirmed 112545419 Problem Hypertensive heart disease without heart failure I 11.9 Active confirmed 33154261 Problem Prostate cancer screening Z12.5 Active confirmed 178565553 Problem Stage 3a chronic kidney disease N18.31 Active confi rmed 025436866 Problem Prediabetes R73.03 Active confirmed 98886235 2 Problem Chronic GERD K21.9 Active confirmed 9989915 09 Problem Bilateral sensorineural hearing loss H90.3 Act toni confirmed 863707914 Problem Second degree atrioventricular block I44.1 Act toni confirmed 757072996 Problem Dyslipidemia E78.5 Active confirmed 2563267 07 Problem Hx of seborrheic keratosis Z87.2 Active confirmed 314128335 Problem Encounter for preprocedural laboratory examination Z01.812 Active confirmed 389506307 Problem Primary insomnia F51.01 Active confirmed 397 2004 Problem Reflux esophagitis K21.0 Active confirmed 2 28465125 Problem Osteoarthrosis, 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 Active conf irmed 86700326 Problem Elevated prostate specific antigen (PSA) R97.20 Active confirmed 728990690 Problem Prostate cancer C61 Active confirmed 2549 54390 Problem Preop testing Z01.818 Active confirmed 54061 9001 Problem UTI (urinary tract infection) N39.0 Active confirm ed 68488806 ALLERGIES No Known Allergies ENCOUNTERS from 1945 to 2021-05-20 Encounter Location Date Provider Diagnosis [facility] Urology [address] [phone] [place] [address] Apr, Sai Andrews Prostate cancer C61 IMMUNIZATIONS Vaccine Route Administration Date Status Moderna [...] REASON FOR REFERRAL No Information VITAL SIGNS Weight 195 lbs 15 Apr, 2021 Weight-kg 88.45 kg 15 Apr,1 Height 68" in Apr, BMI 29.65 kg/m2 Apr, Heart Rate 60 /min Apr, Respiratory Rate 18 /min Apr, Temperature 96.5 degrees Fahrenheit Apr, Oximetry 96% Apr, Blood pressure systolic 122 mm Hg Apr, Blood pressure diastolic 58 mm Hg Apr, MEDICATIONS Medication SIG (Take, Route, Frequency, Duration) Notes Start Da te End Date Status Simvastatin 40 MG 1 tablet in the evening Oral Once a day for 90 days Active Alfuzosin HCl ER 10 MG TAKE 1 TABLET BY MOUTH IMMED IATELY AFTER THE SAME MEAL ONCE DAILY for 90 Active Omeprazole 20 MG 1 tablet 30 minutes before m orning meal Orally Once a day for 90 day(s) Aug, Active Lisinopril 20 MG 1 tablet Orally Once a day for 90 days Aug, Active Tylenol 8 Hour 650 MG 2 tablets as needed Orally every 8 hrs Active PROCEDURES from 1945 to 2021-05-20 Procedure Date Ordered Result Body Site Medication: Eligard 7.5mg SQ (Leuprolide) 2021-05-04 N/A RESULTS No Results REASON FOR VISIT eligard injection 7.5mg auth obtained MEDICAL (GENERAL) HISTORY Type Description Date Medical [...] eyelids for ptosis 11/2016 Surgical History trus Surgical History Pacemaker placed 04/2021 Hospitalization History LRS-JI-sbpzsbd disc 01/2019 Goals Section No Information Health Concerns No Information MEDICAL EQUIPMENT No Information MENTAL STATUS No Information FUNCTIONAL STATUS No Information ASSESSMENTS Encounter Date Diagnosis Assessment Notes Treatment Notes Treatm ent Clinical Notes Apr, Prostate cancer (ICD-10 - C61) PLAN OF TREATMENT Next Appt Details 4 Weeks Reason:Eligard 7.5mg Provider Name:Sai Andrews, 09:30:00 AM, [address], , [place], [address], Provider Name:Vanesa Ibarra, 2021-08 09:30:00 AM, [address], , [place], [address], Follow Up:4 WeeksEligard 7.5mg Insurance Providers Payer Name Payer Address Payer Phone Insured Name Patient Relati onship to Insured Coverage Start Date Coverage End Date [facility] [address] [address] [facility] [id number] ROMULO HUGHES self
--- OUTSIDE RECORDS SUMMARY | 2021-06-07 11:30 | CCD ---
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 Active conf irmed 25409326 Problem Venous stasis dermatitis of right lower extremity I87.2 Active confirmed 54081554 Problem Elevated PSA R97.2 Active confirmed 5202062 05 Problem Benign prostatic hyperplasia with lower urinary tract symptoms N40.1 Active confirmed 185498010 Problem Lower urinary tract symptoms due to benign prost atic hyperplasia N40.1 Active confirmed 502351024 Problem Stage 3a chronic kidney disease N18.31 Active confi rmed 769176493 Problem Enlarged prostate with lower urinary tract symptoms N40.1 Active confirmed 23572210262842 Problem Dyslipidemia E78.5 Active confirmed 6640295 07 Problem Prediabetes R73.03 Active confirmed 22070286 2 Problem Chronic GERD K21.9 Active confirmed 6875387 09 Problem UTI (urinary tract infection) N39.0 Active confirm ed 99452289 Problem Primary insomnia F51.01 Active confirmed 397 2004 Problem Reflux esophagitis K21.0 Active confirmed 2 23431102 Problem Second degree atrioventricular block I44.1 Act toni confirmed 956340709 Problem Hypertensive heart disease without heart failure I 11.9 Active confirmed 34660726 Problem Prostate cancer screening Z12.5 Active confirmed 894986036 Problem Hx of seborrheic keratosis Z87.2 Active confirmed 196712442 Problem Bilateral sensorineural hearing loss H90.3 Act toni confirmed 588619252 Problem Elevated prostate specific antigen (PSA) R97.20 Active confirmed 811150708 Problem Prostate cancer C61 Active confirmed 2549 76182 Problem Preop testing Z01.818 Active confirmed 60000 9001 ALLERGIES No Known Allergies ENCOUNTERS from 1945 to 2021-04-01 Encounter Location Date Provider Diagnosis [address] [phone] [place] [address] Jan, Sai Andrews IMMUNIZATIONS Vaccine Route Administration Date [...] Notes Start Da te End Date Status hydrOXYzine HCl 10 MG 1 tablet as needed Orally before bedtime f or 30 Days Aug, Active Simvastatin 40 MG 1 tablet in the evening Oral Once a day for 90 days Active Bactrim DS 800-160 MG 1 tablet the night before yo ur biopsy and 1 the moring of Orally Twice a day for 1 days Oct, No t-Taking CeleBREX 50 MG 1 capsule with food Orally Twice a day for 30 day(s) Not-Taking Tylenol 8 Hour 650 MG 2 tablets as needed Orally every 8 hrs Active Triamcinolone Acetonide 0.1 % 1 application to affecte d area Externally Twice a day prn Not-Taking Alfuzosin HCl ER 10 MG TAKE 1 TABLET BY MOUTH IMMED IATELY AFTER THE SAME MEAL ONCE DAILY for 90 Active Lisinopril 20 MG 1 tablet Orally Once a day for 90 days Aug, Active Fleet Enema 7-19 GM/118ML as directed Rectal the shakira ng of your biopsy for 1 days Oct, Not-Taking Omeprazole 20 MG 1 tablet 30 minutes before m orning meal Orally Once a day for 90 day(s) Aug, Active PROCEDURES No Information RESULTS No Results REASON FOR VISIT cancel for 02/15 MEDICAL (GENERAL) HISTORY Type Description Date Medical [...] ptosis 11/2016 Surgical History trus Hospitalization History [id number] disc 01/2019 Goals Section No Information Health Concerns No Information MEDICAL EQUIPMENT No Information MENTAL STATUS No Information FUNCTIONAL STATUS No Information ASSESSMENTS No Information PLAN OF TREATMENT Medication Medication Name Sig Start Date Stop Date Simvastatin 40 MG 1 tablet in the evening Oral Once a day for 90 days Alfuzosin HCl ER 10 MG TAKE 1 TABLET BY MOUTH IMMED IATELY AFTER THE SAME MEAL ONCE DAILY for 90 Next Appt Details Provider Name:Sai Andrews, 08:00:00 AM, [address], , [place], [address], Provider Name:Vanesa Ibarra, 2021-08 09:30:00 AM, [address], , [place], [address], Insurance Providers Payer Name Payer Address Payer Phone Insured Name Patient Relati onship to Insured Coverage Start Date Coverage End Date [facility] [address] [address] [facility] [phone] ROMULO [place]ES self
--- OUTSIDE RECORDS SUMMARY | 2021-06-07 11:30 | CCD ---
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 Active conf irmed 14233520 Problem Venous stasis dermatitis of right lower extremity I87.2 Active confirmed 09930849 Problem Elevated PSA R97.2 Active confirmed 7678282 05 Problem Benign prostatic hyperplasia with lower urinary tract symptoms N40.1 Active confirmed 553616209 Problem Lower urinary tract symptoms due to benign prost atic hyperplasia N40.1 Active confirmed 272547066 Problem Stage 3a chronic kidney disease N18.31 Active confi rmed 706097860 Problem Enlarged prostate with lower urinary tract symptoms N40.1 Active confirmed 52396498466736 Problem Dyslipidemia E78.5 Active confirmed 2669029 07 Problem Prediabetes R73.03 Active confirmed 48247686 2 Problem Chronic GERD K21.9 Active confirmed 4218151 09 Problem UTI (urinary tract infection) N39.0 Active confirm ed 26728177 Problem Primary insomnia F51.01 Active confirmed 397 2004 Problem Reflux esophagitis K21.0 Active confirmed 2 35326005 Problem Second degree atrioventricular block I44.1 Act toni confirmed 149545516 Problem Hypertensive heart disease without heart failure I 11.9 Active confirmed 31120152 Problem Prostate cancer screening Z12.5 Active confirmed 459322797 Problem Hx of seborrheic keratosis Z87.2 Active confirmed 971431487 Problem Bilateral sensorineural hearing loss H90.3 Act toni confirmed 600003182 Problem Elevated prostate specific antigen (PSA) R97.20 Active confirmed 013660685 Problem Prostate cancer C61 Active confirmed 2549 40117 Problem Preop testing Z01.818 Active confirmed 17635 9001 ALLERGIES No Known Allergies ENCOUNTERS from 1945 to 2021-03-29 Encounter Location Date Provider Diagnosis [facility] [address] [phone] [place] [address] Feb, Sai Andrews IMMUNIZATIONS Vaccine Route Administration Date [...] Information RESULTS No Results REASON FOR VISIT Message MEDICAL (GENERAL) HISTORY Type Description Date Medical [...] ptosis 11/2016 Surgical History trus Hospitalization History [id number] disc 01/2019 Goals Section No Information Health [...] Appt Details Provider Name:Sai Andrews, 08:00:00 AM, [address], , [place], [address], Provider Name:Vanesa Ibarra, 2021-08 09:30:00 AM, [address], , [place], [address], Insurance Providers Payer Name Payer Address Payer Phone Insured Name Patient Relati onship to Insured Coverage Start Date Coverage End Date [facility] [address] [address] [facility] [phone] [phone] ROMULO HUGHES self
--- OUTSIDE RECORDS SUMMARY | 2021-06-07 11:30 | CCD ---
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 Brito 1 Week Follow-U p with Cole Magana DO 08/04/2016 Ordered chest x-ray NEW PATIENT WITH REFERRAL with Cole giordano DO 07/31/2016 Ordered MR angiography of the head with contrast mater ial(s) NEW PATIENT WITH REFERRAL with Cole Magana DO 07/31/2016 Ordered MRI of brain NEW PATIENT WITH REFERRAL with Cole Magana DO 07/31/2016 Assessments Includes: Assessments for all patient encounters Findings Encounter Date Dry eye syndrome of both eyes 1 Year Follow-Up with [place] Brito MD, FACS 09/13/2020 Nuclear senile cataract 1 Year Follow-Up with Julian Pino MD, FACS 09/13/2020 Vitreous degeneration 1 Year Follow-Up with Julian bryan MD, FACS 09/13/2020 Dry eye syndrome of both eyes 1 Year Follow-Up with [place] Brito MD, FACS 09/11/2019 Nuclear senile cataract 1 Year Follow-Up with Julian Pino MD, FACS 09/11/2019 Vitreous degeneration 1 Year Follow-Up with Julian bryan MD, FACS 09/11/2019 Dry eye syndrome of both eyes 1 Year Follow-Up with [place] Brito MD, FACS 09/10/2018 Nuclear senile cataract 1 Year Follow-Up with Julian Pino MD, FACS 09/10/2018 Vitreous degeneration 1 Year Follow-Up with Julian bryan MD, FACS 09/10/2018 Dry eye syndrome of both eyes 9 Month Follow-Up with Willy Brito MD, FACS 09/04/2017 Essential hypertension 9 Month Follow-Up with Julian Pino MD, FACS 09/04/2017 Hypertensive retinopathy of both eyes 9 Month Follow-U p with Julian Brito MD, FACS 09/04/2017 Nuclear senile cataract 9 Month Follow-Up with Julian Adkins MD, FACS 09/04/2017 Vitreous degeneration 9 Month Follow-Up with Julian Villanueva MD, FACS 09/04/2017 Myogenic ptosis 1 WK PREOP FOR SURGERY with Julian Sabillon MD, FACS 11/21/2016 Dry eye syndrome of both eyes 1 Month Follow-Up with Willy Brito MD, FACS 09/06/2016 Myogenic ptosis 1 Month Follow-Up with Julian albrecht MD, FACS 09/06/2016 Anisocoria likely physiological, no erica dence per testing and imaging that suggest lon pathology 1 Week Follow-Up with Cole Magana DO 08/04/2016 Dermatochalasis of the left upper eyelid 1 Week Follow -Up with Cole Magana DO 08/04/2016 Dermatochalasis of the right upper eyelid 1 Week Follo w-Up with Cole Magana DO 08/04/2016 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 worse than left sided ptosis, likely myogenic 1 [facility] Arcus senilis was observed NEW PATIENT WITH REFERRAL with Ricardo ros Chino DO 07/31/2016 Dry eye syndrome of both eyes NEW PATIENT WITH REFERRA L with Cole Chino DO 07/31/2016 Myasthenia gravis [facility] Myogenic ptosis [facility] Nuclear senile cataract NEW PATIENT WITH REFERRAL with Courtney quique [facility] 07/31/2016 Vitreous degeneration [facility] Instructions Instructions not supported for this document typeNo Instructions Recorded Medical Equipment - Implanted Devices Includes: Current and historical DevicesNo Medical Equipment Recorded Medications Includes: Current and historical Medications Current Medications (continue as prescribed) RaNITidine HCl 150MG Oral Tablet 07/31/2016 Provide r: Diagnosis: Simvastatin 40MG Oral Tablet 07/31/2016 Provider: Diagnosis: Lisinopril 20MG Oral Tablet 07/31/2016 Provider: Diagnosis: Take 1 and 1/2 tablets by mouth daily Tamsulosin HCl 0.4MG Oral Capsule, conventional 07/31/2016 Provider: Diagnosis: Past Medications on file Ciloxan 0.3% Ophthalmic Ointment 11/21/2016 - 09/04/2017 Pro vider: Julian Brito MD, FACS Diagnosis: Myogenic ptosis of b ilateral eyelids apply to incision and sutures three times a day Meloxicam 7.5MG Oral Tablet 07/31/2016 - 09/11/2019 Provider : Diagnosis: Medications Administered Includes: Administered Medications in patient's chartNo Administered Medications Recorded Vital Signs Includes: Vital Signs from 03/30/2020 through 03/30/2021No Vital Signs Recorded For Specified Dates Results Includes: Results from 03/30/2020 through 03/30/2021No Results Recorded For Specified Dates History of Present Illness History of Present Illness not supported for this document typeNo History of Present Illness Recorded Social History Description Last Updated Tobacco non-user 09/13/2020 Previous smoking history 09/11/2019 Not using drugs 08/04/2016 No consumption of alcohol 07/31/2016 No tobacco use 07/31/2016 Smoking status : Never smoker 07/31/2016 Procedures and Surgical History Includes: Procedures from 03/30/2020 through 03/30/2021 Procedures Code Diagnosis Performing Provider Service Location Service Date Intermediate Eye Exam Established Patient [id number] Age-related nuclear cataract, bilateral, Dry eye syndrome of bilateral lacrimal glands, Vitreous degeneration, bilateral Julian Brito MD, FACS Julian Brito MD [facility] 2020 Surgical History Last Updated Surgical / procedural history Gallbladder 1975 2015 Medical History Includes: Medical History in patient's chart Description Last Updated History of arthritis 09/11/2019 History of hyperlipidemia 09/11/2019 History of hypertension 09/11/2019 No recent change in medical history 09/11/2019 Not currently wearing eyeglasses 08/04/2016 Reported medical history High blood pressure ~Arthrit is ~High cholesterol 07/31/2016 Family History Includes: Family History in patient's chart Description Last Updated Sororal history of family history of cancer 09/13/2020 Paternal history of heart disease 07/31/2016 Review of Systems Review of Systems not supported for this document typeNo Review of Systems Recorded Mental Status Mental Status not supported for this document type Description Oriented to time, place, and person Functional Status Functional Status not supported for this document typeNo Functional Status Recorded Physical Exam Physical Exam not supported for this document typeNo Physical Exam Recorded Immunizations Includes: Immunizations in patient's chartNo Immunizations Recorded Allergies Includes: Active, inactive, and resolved AllergiesNo Known Allergies Encounters Includes: Encounters from 03/30/2020 through 03/30/2021 Encounter Provider Location Date Check-In Time Check-Out Time D iagnosis 1 Year Follow-Up Julian Brito MD, FACS Julian Aguilera [facility] 09/13/2020 10:01AM 11:13AM Cataract Senile Nucl ear, Dry Eye Syndrome Both Eyes, Vitreous Disorders Degeneration Insurance Includes: Active Insurance Policies Plan Name Member ID Group # Subscriber Relationship Effective Da teresa 1 - [employer] (Medicare).-AUTHS NEEDED!!!! [id number] Julia wheat Ellen Self Advance Directives Includes: Current Advance DirectivesNo Advance Directives Recorded Health Concerns Includes: Active Health ConcernsNo Active Health Concerns Recorded Goals Includes: Active GoalsNo Active Goals Recorded Interventions Includes: Interventions for active GoalsNo Interventions Recorded Evaluations & Outcomes Includes: Evaluations & Outcomes for active GoalsNo Outcomes Recorded
--- OUTSIDE RECORDS SUMMARY | 2021-06-07 11:30 | CCD ---
Author Author Julian Brito MD [facility] Organization Julian Brito MD [facility] Address [phone] [address] Phone Care Team Providers Care Document Review Attorney Name Role Phone Henrik SANCHEZ, Garcia PP [phone] [place] VALENCIA, Cole Unavailable [phone] Jeanie TURRET LATHE OPERATOR, Kelly Unavailable [phone] Reason for Referral No Reason for Referral [...] Year Follow-Up 09/19/2021 12:40PM Julian Brito MD [facility] Julian Brito MD, FACS Findings Encounter Date [...] likely myogenic 1 [facility] Arcus senilis was observed NEW PATIENT WITH REFERRAL with Ricardo ros [place] DO 07/31/2016 Dry eye syndrome of both eyes NEW PATIENT WITH REFERRA L with Cole Chino DO 07/31/2016 Myasthenia gravis [facility] Myogenic ptosis [facility] Nuclear senile cataract NEW PATIENT WITH REFERRAL with Courtney quique [facility] 07/31/2016 Vitreous degeneration [facility] Instructions Instructions not supported for [...] using drugs 08/04/2016 No consumption of alcohol 08/04/2016 No tobacco use 08/04/2016 Smoking status : Never smoker 08/04/2016 Procedures and Surgical History Includes: Procedures from 03/30/2020 through 03/30/2021 Procedures Code Diagnosis Performing Provider Service Location Service Date Intermediate Eye Exam Established Patient 235[address] Age-related nuclear cataract, bilateral, Dry eye syndrome of bilateral lacrimal glands, Vitreous degeneration, bilateral Julian Brito MD, FACS Julian Brito MD [facility] 2020 Surgical History Last Updated Surgical / procedural history Gallbladder 1975 2015 Medical History Includes: Medical History in patient's chart Description Last Updated History of arthritis 09/11/2019 History of hyperlipidemia 09/11/2019 History of hypertension 09/11/2019 No recent change in medical history 09/11/2019 Not currently wearing eyeglasses 08/04/2016 Reported medical history High blood pressure ~Arthrit is ~High cholesterol 08/04/2016 Family History Includes: Family History in patient's chart Description Last Updated Sororal history of family history of cancer 09/13/2020 Paternal history of heart disease 08/04/2016 Review of Systems Review of Systems not [...] Follow-Up Julian Brito MD, FACS Julian Aguilera [facility] 09/13/2020 10:01AM 11:13AM Cataract Senile Nucl ear, Dry Eye Syndrome Both Eyes, Vitreous Disorders Degeneration Insurance Includes: Active Insurance Policies Plan Name Member ID Group # Subscriber Relationship Effective Da teresa 1 - [employer] (Medicare).-AUTHS NEEDED!!!! [id number] Julia wheat Ellen Self Advance Directives Includes: Current Advance DirectivesNo Advance Directives Recorded Health Concerns Includes: Active Health ConcernsNo Active Health Concerns Recorded Goals Includes: Active GoalsNo Active Goals Recorded Interventions Includes: Interventions for active GoalsNo Interventions Recorded Evaluations & Outcomes Includes: Evaluations & Outcomes for active GoalsNo Outcomes Recorded
--- OUTSIDE RECORDS SUMMARY | 2021-06-07 11:30 | CCD ---
Author Author [facility] Organization [facility] Address Unknown Phone Unavailable Care Team Providers Care Medical Educator Name Role Phone Sai Andrews Unavailable PROBLEMS Type Condition ICD9-CM Code CDB26-GT Code Onset Dates Condition S tatus W/U Status Risk SNOMED Code Notes Problem Elevated PSA R97.2 Active confirmed 4865732 05 Problem Shoulder joint painful on movement M25.519 Activ e confirmed 262269954 Problem Lower urinary tract symptoms due to benign prost atic hyperplasia N40.1 Active confirmed 697275489 Problem Venous stasis dermatitis of right lower extremity I87.2 Active confirmed 16607118 Problem Enlarged prostate with lower urinary tract symptoms N40.1 Active confirmed 20731748299315 Problem Benign prostatic hyperplasia with lower urinary tract symptoms N40.1 Active confirmed 512793918 Problem Hypertensive heart disease without heart failure I 11.9 Active confirmed 62277719 Problem Prostate cancer screening Z12.5 Active confirmed 913591753 Problem Stage 3a chronic kidney disease N18.31 Active confi rmed 732624928 Problem Prediabetes R73.03 Active confirmed 77178710 2 Problem Chronic GERD K21.9 Active confirmed 8576309 09 Problem Bilateral sensorineural hearing loss H90.3 Act toni confirmed 745113813 Problem Second degree atrioventricular block I44.1 Act toni confirmed 035482834 Problem Dyslipidemia E78.5 Active confirmed 6851508 07 Problem Hx of seborrheic keratosis Z87.2 Active confirmed 883121379 Problem Encounter for preprocedural laboratory examination Z01.812 Active confirmed 631501983 Problem Primary insomnia F51.01 Active confirmed 397 2004 Problem Reflux esophagitis K21.0 Active confirmed 2 24037372 Problem Osteoarthrosis, 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 Active conf irmed 95813156 Problem Elevated prostate specific antigen (PSA) R97.20 Active confirmed 108555885 Problem Prostate cancer C61 Active confirmed 2549 35347 Problem Preop testing Z01.818 Active confirmed 70336 9001 Problem UTI (urinary tract infection) N39.0 Active confirm ed 97123849 ALLERGIES No Known Allergies ENCOUNTERS from 1945 to 2021-04-12 Encounter Location Date Provider Diagnosis [facility] [address] [phone] [place] [address] Mar, Sai Andrews Prostate cancer C61 ; Encounter for prep rocedural laboratory examination Z01.812 and UTI (urinary tract infection) N39.0 IMMUNIZATIONS Vaccine Route Administration Date Status Moderna [...] FOR REFERRAL No Information VITAL SIGNS Weight 196 lbs Mar, Weight-kg 88.91 kg Mar, Height 68" in Mar, BMI 29.80 kg/m2 Mar, Heart Rate 51 /min Mar, Respiratory Rate 17 /min Mar, Temperature 95.8 degrees Fahrenheit Mar, Oximetry 97 Mar, Blood pressure systolic 138 mm Hg Mar, Blood pressure diastolic 84 mm Hg Mar, MEDICATIONS Medication SIG (Take, Route, Frequency, Duration) Notes Start Da te End Date Status Simvastatin 40 MG 1 tablet in the evening Oral Once a day for 90 days Active Triamcinolone Acetonide 0.1 % 1 application to affecte d area Externally Twice a day prn Not-Taking Bactrim DS 800-160 MG 1 tablet the night before yo ur biopsy and 1 the moring of Orally Twice a day for 1 days Oct, No t-Taking Lisinopril 20 MG 1 tablet Orally Once a day for 90 days Aug, Active Tylenol 8 Hour 650 MG 2 tablets as needed Orally every 8 hrs Active CeleBREX 50 MG 1 capsule with food Orally Twice a day for 30 day(s) Not-Taking hydrOXYzine HCl 10 MG 1 tablet as needed Orally before bedtime f or 30 Days Aug, Active Omeprazole 20 MG 1 tablet 30 minutes before m orning meal Orally Once a day for 90 day(s) Aug, Active Fleet Enema 7-19 GM/118ML as directed Rectal the monri ng of your biopsy for 1 days Oct, Not-Taking Alfuzosin HCl ER 10 MG TAKE 1 TABLET BY MOUTH IMMED IATELY AFTER THE SAME MEAL ONCE DAILY for 90 Active PROCEDURES No Information RESULTS Component Value Reference Range CBC - Complete Blood Count Reviewed date:04/08/2021 17:27:05 Interpretation: Performing Lab:[facility] [address] [address] , ,[place] [address] WHITE BLOOD COUNT 9.6 4.0-10.0 RED BLOOD COUNT 5.02 4.30-6.10 HEMOGLOBIN 16.0 13.5-17.5 HEMATOCRIT 49.2 42.0-52.0 MEAN CORPUSCULAR VOLUME 98.0 80.0-96.0 MEAN CORPUSCULAR HEMOGLOBIN 31.9 27.0-33.0 MEAN CORPUSCULAR HGB CONC 32.5 32.0-36.5 RED CELL DISTRIBUTION WIDTH 13.0 11.5-14.5 PLATELET COUNT, AUTOMATED 155 150-450 Basic Metabolic Profile (BMP) Reviewed date:04/08/2021 17:27:15 Interpretation: Performing Lab:[facility] [address] [address] , ,[place] [address] GLUCOSE, FASTING 102 70-100 BLOOD UREA NITROGEN 20 7-18 CREATININE FOR GFR 1.41 0.70-1.30 GLOMERULAR FILTRATION RATE 51.9 >42 SODIUM LEVEL 140 136-145 POTASSIUM SERUM 4.6 3.5-5.1 CHLORIDE LEVEL 110 98-107 CARBON DIOXIDE LEVEL 25 21-32 CALCIUM LEVEL 9.0 8.8-10.2 URINE CULTURE Reviewed date:04/11/2021 11:16:57 Interpretation: Performing Lab:[facility] [address] [id number] , ,[place] [address] REASON FOR VISIT F/U, Eligard Injection MEDICAL (GENERAL) HISTORY Type Description [...] ptosis 11/2016 Surgical History trus Hospitalization History [id number] disc 01/2019 Goals Section No Information Health Concerns No Information MEDICAL EQUIPMENT No Information MENTAL STATUS No Information FUNCTIONAL STATUS No Information ASSESSMENTS Encounter Date Diagnosis Assessment Notes Treatment Notes Treatm ent Clinical Notes Mar, Prostate cancer (ICD-10 - C61) - patient would like to still proceed w/ RALP w/ [facility] - consent signed - preop CBC, BMP, urine culture ordered - will touch base w/ cardiology to see if he is now cleared - will tentatively plan for surgery on 04/27/21 Mar, Encounter for preprocedural laboratory examination (ICD-10 - Z01.812) Mar, UTI (urinary tract infection) (ICD-10 - N39.0) PLAN OF TREATMENT Treatment Notes Assessment Notes Clinical Notes Prostate cancer - patient would like to still proceed w/ RALP w/ [facility]- consent signed- preop CBC, BMP, urine culture ordered- will touch base w/ cardiology to see if he is now cleared- will tentatively plan for surgery on 04/27/21 Next Appt Details Provider Name:Vanesa Ibarra, 2021-08 09:30:00 AM, [address] , , [place], [address], Insurance Providers Payer Name Payer Address Payer Phone Insured Name Patient Relati onship to Insured Coverage Start Date Coverage End Date [facility] [employer] [address] [address] [facility] [address] [phone] ROMULO SUAREZ self
--- OUTSIDE RECORDS SUMMARY | 2021-06-07 11:30 | CCD ---
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 Active conf irmed 83379506 Problem Venous stasis dermatitis of right lower extremity I87.2 Active confirmed 51582320 Problem Elevated PSA R97.2 Active confirmed 9501807 05 Problem Benign prostatic hyperplasia with lower urinary tract symptoms N40.1 Active confirmed 257562081 Problem Lower urinary tract symptoms due to benign prost atic hyperplasia N40.1 Active confirmed 633977559 Problem Stage 3a chronic kidney disease N18.31 Active confi rmed 455185123 Problem Enlarged prostate with lower urinary tract symptoms N40.1 Active confirmed 66366019178829 Problem Dyslipidemia E78.5 Active confirmed 3690987 07 Problem Prediabetes R73.03 Active confirmed 76717810 2 Problem Chronic GERD K21.9 Active confirmed 6691230 09 Problem UTI (urinary tract infection) N39.0 Active confirm ed 60706248 Problem Primary insomnia F51.01 Active confirmed 397 2004 Problem Reflux esophagitis K21.0 Active confirmed 2 31327936 Problem Second degree atrioventricular block I44.1 Act toni confirmed 591259319 Problem Hypertensive heart disease without heart failure I 11.9 Active confirmed 94426098 Problem Prostate cancer screening Z12.5 Active confirmed 320181878 Problem Hx of seborrheic keratosis Z87.2 Active confirmed 041236355 Problem Bilateral sensorineural hearing loss H90.3 Act toni confirmed 074896920 Problem Elevated prostate specific antigen (PSA) R97.20 Active confirmed 996846842 Problem Prostate cancer C61 Active confirmed 2549 65268 Problem Preop testing Z01.818 Active confirmed 94483 9001 ALLERGIES No Known Allergies ENCOUNTERS from 1945 to 2021-04-05 Encounter Location Date Provider Diagnosis [facility] Urology [address] [phone] [place] [address] Mar, Sai Andrews Prostate cancer C61 IMMUNIZATIONS Vaccine [...] Orally before bedtime f or 30 Days 06 Hiren, 2021 Active Simvastatin 40 MG 1 tablet in [...] day(s) Aug, Active PROCEDURES No Information RESULTS Component Value Reference Range PSA MONITOR (HX PROSTATE CA/ABNORMAL PSA ) Reviewed date:04/01/2021 13:48:59 Interpretation: Performing Lab:[facility], [facility] [address] [address] , ,[place] [address] PROSTATIC SPECIFIC AG MONITOR 7.81 < 4.00 REASON FOR VISIT RAMÍREZ Sims MEDICAL (GENERAL) HISTORY Type Description Date Medical [...] ptosis 11/2016 Surgical History trus Hospitalization History IOO-GX-rrzjgzm disc 01/2019 Goals Section No Information Health Concerns No Information MEDICAL EQUIPMENT No Information MENTAL STATUS No Information FUNCTIONAL STATUS No Information ASSESSMENTS Encounter Date Diagnosis Assessment Notes Treatment Notes Treatm ent Clinical Notes Mar, Prostate cancer (ICD-10 - C61) PLAN OF TREATMENT Medication Medication Name Sig Start Date Stop Date Simvastatin 40 MG 1 tablet in the evening Oral Once a day for 90 days Alfuzosin HCl ER 10 MG TAKE 1 TABLET BY MOUTH IMMED IATELY AFTER THE SAME MEAL ONCE DAILY for 90 Next Appt Details Provider Name:Sai Maricarmen Andrews, 08:00:00 AM, [address], , [place], [address], Provider Name:Vanesa Ibarra, 2021-08 09:30:00 AM, [address], , [place], [address], Insurance Providers Payer Name Payer Address Payer Phone Insured Name Patient Relati onship to Insured Coverage Start Date Coverage End Date [employer] [address] [address] [facility] [address] [phone] ROMULO HUGHES self
--- OUTSIDE RECORDS SUMMARY | 2021-06-07 11:30 | CCD ---
Author Author [facility] Address Unknown Phone Unavailable Care Team Providers Care Tank Car Inspector Name Role Phone Kocan, J Nzaia JOINERY MACHINIST Unavailable Unavailable Kocan, J Nazia JOINERY MACHINIST Unavailable Unavailable Kocan, J Nazia JOINERY MACHINIST Unavailable Unavailable Kocan, J Nazia JOINERY MACHINIST Unavailable Unavailable Kocan, J Nazia JOINERY MACHINIST Unavailable Unavailable Kocan, J Nazia JOINERY MACHINIST Unavailable Unavailable Kocan, J Nazia JOINERY MACHINIST Unavailable Unavailable Kocan, J Nazia JOINERY MACHINIST Unavailable Unavailable Kocan, J Nazia JOINERY MACHINIST Unavailable Unavailable Kocan, J Nazia JOINERY MACHINIST Unavailable Unavailable Kocan, J Nazia JOINERY MACHINIST Unavailable Unavailable Kocan, J Nazia JOINERY MACHINIST Unavailable Unavailable Kocan, J Nazia JOINERY MACHINIST Unavailable Unavailable Willy Diego MD Unavailable Unavailable Willy Diego MD Unavailable Unavailable Willy Diego MD Unavailable Unavailable Willy Diego MD Unavailable Unavailable Willy Diego MD Unavailable Unavailable Willy Diego MD Unavailable Unavailable Willy Diego MD Unavailable Unavailable Willy Diego MD Unavailable Unavailable Willy Diego MD Unavailable Unavailable Willy Diego MD Unavailable Unavailable Willy Diego MD Unavailable Unavailable Willy Diego MD Unavailable Unavailable Willy Diego MD Unavailable Unavailable Willy Diego MD Unavailable Unavailable Willy Diego MD Unavailable Unavailable Willy Diego MD Unavailable Unavailable Willy Diego MD Unavailable Unavailable Willy Diego MD Unavailable Unavailable Willy Diego MD Unavailable Unavailable Willy Diego MD Unavailable Unavailable Willy Diego MD Unavailable Unavailable Willy Deigo MD Unavailable Unavailable Willy Diego MD Unavailable Unavailable Willy Diego MD Unavailable Unavailable Willy Diego MD Unavailable Unavailable Willy Diego MD Unavailable Unavailable Willy Diego MD Unavailable Unavailable Willy Diego MD Unavailable Unavailable Willy Diego MD Unavailable Unavailable Willy Diego MD Unavailable Unavailable Willy Diego MD Unavailable Unavailable Willy Diego MD Unavailable Unavailable Willy Diego MD Unavailable Unavailable Willy Diego MD Unavailable Unavailable Willy Diego MD Unavailable Unavailable Willy Diego MD Unavailable Unavailable Willy Diego MD Unavailable Unavailable Willy Diego MD Unavailable Unavailable Willy Diego MD Unavailable Unavailable Willy Diego MD Unavailable Unavailable Willy Diego MD Unavailable Unavailable Willy Diego MD Unavailable Unavailable Willy Diego MD Unavailable Unavailable Willy Diego MD Unavailable Unavailable Willy Diego MD Unavailable Unavailable Willy Diego MD Unavailable Unavailable Willy Diego MD Unavailable Unavailable Willy Diego MD Unavailable Unavailable Willy Diego MD Unavailable Unavailable Willy Diego MD Unavailable Unavailable Willy Diego MD Unavailable Unavailable Willy Diego MD Unavailable Unavailable Willy Diego MD Unavailable Unavailable Willy Diego MD Unavailable Unavailable Willy Diego MD Unavailable Unavailable Willy Diego MD Unavailable Unavailable Willy Diego MD Unavailable Unavailable Willy Diego MD Unavailable Unavailable Willy Diego MD Unavailable Unavailable Willy Diego MD Unavailable Unavailable Willy Diego MD Unavailable Unavailable Willy Diego MD Unavailable Unavailable Willy Diego MD Unavailable Unavailable Willy Diego MD Unavailable Unavailable Wlily Diego MD Unavailable Unavailable Willy Diego MD Unavailable Unavailable Willy Diego MD Unavailable Unavailable Willy Diego MD Unavailable Unavailable Willy Diego MD Unavailable Unavailable Willy Diego MD Unavailable Unavailable Willy Diego MD Unavailable Unavailable Willy Diego MD Unavailable Unavailable DiegoWilly MD Unavailable Unavailable ViborgWilly MD Unavailable Unavailable Danisha, Vern Mariee SNACK FOODS MIXER OPERATOR-C Unavailable Unavailabl e Danisha, Vern Mariee SNACK FOODS MIXER OPERATOR-C Unavailable Unavailabl e Danisha, Vern Mariee SNACK FOODS MIXER OPERATOR-C Unavailable Unavailabl e Danisha, Vern Chengyce SNACK FOODS MIXER OPERATOR-C Unavailable Unavailabl e Danisha, Vern Mariee SNACK FOODS MIXER OPERATOR-C Unavailable Unavailabl e Danisha, Vern Mariee SNACK FOODS MIXER OPERATOR-C Unavailable Unavailabl e Danisha, Vern Chengyce SNACK FOODS MIXER OPERATOR-C Unavailable Unavailabl e Danisha, Vern Mariee SNACK FOODS MIXER OPERATOR-C Unavailable Unavailabl e Danisha, Vern Mariee SNACK FOODS MIXER OPERATOR-C Unavailable Unavailabl e Danisha, Vern Mariee SNACK FOODS MIXER OPERATOR-C Unavailable Unavailabl e Danisha, Vern Mariee SNACK FOODS MIXER OPERATOR-C Unavailable Unavailabl e Danisha, Vern Mariee SNACK FOODS MIXER OPERATOR-C Unavailable Unavailabl e Danisha, Vern Mariee SNACK FOODS MIXER OPERATOR-C Unavailable Unavailabl e Danisha, Vern Mariee SNACK FOODS MIXER OPERATOR-C Unavailable Unavailabl e Danisha, Vern Mariee SNACK FOODS MIXER OPERATOR-C Unavailable Unavailabl e Danisha, Vern Mariee SNACK FOODS MIXER OPERATOR-C Unavailable Unavailabl e Danisha, Vern Mariee SNACK FOODS MIXER OPERATOR-C Unavailable Unavailabl e Danisha, Vern Mariee SNACK FOODS MIXER OPERATOR-C Unavailable Unavailabl e Danisha, Vern Mariee SNACK FOODS MIXER OPERATOR-C Unavailable Unavailabl e Danisha, Vern Mariee SNACK FOODS MIXER OPERATOR-C Unavailable Unavailabl e Danisha, Khadijah W Denise SNACK FOODS MIXER OPERATOR-C Unavailable Unavailabl e Danisha, Vern W Denise SNACK FOODS MIXER OPERATOR-C Unavailable Unavailabl e Danisha, Vern W Denise SNACK FOODS MIXER OPERATOR-C Unavailable Unavailabl e Danisha, Vern W Denise SNACK FOODS MIXER OPERATOR-C Unavailable Unavailabl e Danisha, Vern W Denise SNACK FOODS MIXER OPERATOR-C Unavailable Unavailabl e Danisha, Vern Kristina Mariee SNACK FOODS MIXER OPERATOR-C Unavailable Unavailabl e Danisha, Khadijahh W Denise SNACK FOODS MIXER OPERATOR-C Unavailable Unavailabl e Danisha, Khadijahh W Denise SNACK FOODS MIXER OPERATOR-C Unavailable Unavailabl e Danisha, Reginah W Denise SNACK FOODS MIXER OPERATOR-C Unavailable Unavailabl e Danisha, Khadijahh W Denise SNACK FOODS MIXER OPERATOR-C Unavailable Unavailabl e Danisha, Khadijahh W Denise SNACK FOODS MIXER OPERATOR-C Unavailable Unavailabl e Danisha, Reginah W Denise SNACK FOODS MIXER OPERATOR-C Unavailable Unavailabl e GILBERT, EUSEBIO SANCHEZ Unavailable Unavailable GILBERT, EUSEBIO SANCHEZ Unavailable Unavailable GILBERT, EUSEBIO SANCHEZ Unavailable Unavailable GILBERT, EUSEBIO SANCHEZ Unavailable Unavailable GILBERT, EUSEBIO SANCHEZ Unavailable Unavailable GILBERT, EUSEBIO SANCHEZ Unavailable Unavailable GILBERT, EUSEBIO SANCHEZ Unavailable Unavailable GILBERT, EUSEBIO SANCHEZ Unavailable Unavailable GILBERT, EUSEBIO SANCHEZ Unavailable Unavailable GILBERT, EUSEBIO SANCHEZ Unavailable Unavailable GILBERT, EUSEBIO SANCHEZ Unavailable Unavailable GILBERT, EUSEBIO SANCHEZ Unavailable Unavailable GILBERT, EUSEBIO SANCHEZ Unavailable Unavailable GILBERT, EUSEBIO SANCHEZ Unavailable Unavailable GILBERT, EUSEBIO SANCHEZ Unavailable Unavailable GILBERT, EUSEBIO SANCHEZ Unavailable Unavailable GILBERT, EUSEBIO SANCHEZ Unavailable Unavailable GILBERT, EUSEBIO SANCHEZ Unavailable Unavailable GILBERT, EUSEBIO SANCHEZ Unavailable Unavailable GILBERT, EUSEBIO SANCHEZ Unavailable Unavailable GILBERT, EUSEBIO SANCHEZ Unavailable Unavailable GILBERT, EUSEBIO SANCHEZ Unavailable Unavailable GILBERT, EUSEBIO SANCHEZ Unavailable Unavailable GILBERT, EUSEBIO SANCHEZ Unavailable Unavailable GILBERT, EUSEBIO SANCHEZ Unavailable Unavailable GILBERT, EUSEBIO SANCHEZ Unavailable Unavailable GILBERT, EUSEBIO SANCHEZ Unavailable Unavailable GILBERT, EUSEBIO SANCHEZ Unavailable Unavailable GILBERT, EUSEBIO SANCHEZ Unavailable Unavailable GILBERT, EUSEBIO SANCHEZ Unavailable Unavailable GILBERT, EUSEBIO SANCHEZ Unavailable Unavailable GILBERT, EUSEBIO SANCHEZ Unavailable Unavailable GILBERT, EUSEBIO SANCHEZ Unavailable Unavailable GILBERT, EUSEBIO SANCHEZ Unavailable Unavailable GILBERT, EUSEBIO SANCHEZ Unavailable Unavailable GILBERT, EUSEBIO SANCHEZ Unavailable Unavailable GILBERT, EUSEBIO SANCHEZ Unavailable Unavailable GILBERT, EUSEBIO SANCHEZ Unavailable Unavailable GILBERT, EUSEBIO SANCHEZ Unavailable Unavailable GILBERT, EUSEBIO SANCHEZ Unavailable Unavailable GILBERT, EUSEBIO SANCHEZ Unavailable Unavailable GILBERT, EUSEBIO SANCHEZ Unavailable Unavailable GILBERT, EUSEBIO SANCHEZ Unavailable Unavailable GILBERT, EUSEBIO SANCHEZ Unavailable Unavailable GILBERT, EUSEBIO SANCHEZ Unavailable Unavailable GILBERT, EUSEBIO SANCHEZ Unavailable Unavailable GILBERT, EUSEBIO SANCHEZ Unavailable Unavailable GILBERT, EUSEBIO SANCHEZ Unavailable Unavailable GILBERT, EUSEBIO SANCHEZ Unavailable Unavailable GILBERT, EUSEBIO SANCHEZ Unavailable Unavailable GILBERT, EUSEBIO SANCHEZ Unavailable Unavailable GILBERT, EUSEBIO SANCHEZ Unavailable Unavailable GILBERT, EUSEBIO SANCHEZ Unavailable Unavailable GILBERT, KAPLAN MD Unavailable Unavailable GILBERT, KAPLAN MD Unavailable Unavailable El-Khally, A Ziad MD Unavailable Unavailable El-Khally, A Ziad MD Unavailable Unavailable El-Khally, A Ziad MD Unavailable Unavailable El-Khally, A Ziad MD Unavailable Unavailable El-Khally, A Ziad MD Unavailable Unavailable El-Khally, A Ziad MD Unavailable Unavailable El-Khally, A Ziad MD Unavailable Unavailable El-Khally, A Ziad MD Unavailable Unavailable El-Khally, A Ziad MD Unavailable Unavailable El-Khally, A Ziad MD Unavailable Unavailable El-Khally, A Ziad MD Unavailable Unavailable El-Khally, A Ziad MD Unavailable Unavailable El-Khally, A Ziad MD Unavailable Unavailable El-Khally, A Ziad MD Unavailable Unavailable El-Khally, A Ziad MD Unavailable Unavailable El-Khally, A Ziad MD Unavailable Unavailable El-Khally, A Ziad MD Unavailable Unavailable El-Khally, A Ziad MD Unavailable Unavailable El-Khally, A Ziad MD Unavailable Unavailable El-Khally, A Ziad MD Unavailable Unavailable El-Khally, A Ziad MD Unavailable Unavailable El-Khally, A Ziad MD Unavailable Unavailable El-Khally, A Ziad MD Unavailable Unavailable El-Khally, A Ziad MD Unavailable Unavailable El-Khally, A Ziad MD Unavailable Unavailable El-Khally, A Ziad MD Unavailable Unavailable El-Khally, A Ziad MD Unavailable Unavailable El-Khally, A Ziad MD Unavailable Unavailable El-Khally, A Ziad MD Unavailable Unavailable El-Khally, A Ziad MD Unavailable Unavailable El-Khally, A Ziad MD Unavailable Unavailable El-Khally, A Ziad MD Unavailable Unavailable El-Khally, A Ziad MD Unavailable Unavailable El-Khally, A Ziad MD Unavailable Unavailable El-Khally, A Ziad MD Unavailable Unavailable El-Khally, A Ziad MD Unavailable Unavailable El-Khally, A Ziad MD Unavailable Unavailable El-Khally, A Ziad MD Unavailable Unavailable El-Khally, A Ziad MD Unavailable Unavailable El-Khally, A Ziad MD Unavailable Unavailable El-Khally, A Ziad MD Unavailable Unavailable El-Khally, A Ziad MD Unavailable Unavailable El-Khally, A Ziad MD Unavailable Unavailable Maricarmen VEE Unavailable Unavailable NANDA, L YEISON PA Unavailable Unavailable NANDA, L YEISON PA Unavailable Unavailable NANDA, L YEISON PA Unavailable Unavailable NANDA, L YEISON PA Unavailable Unavailable NANDA, L YEISON PA Unavailable Unavailable NANDA, L YEISON PA Unavailable Unavailable NANDA, L YEISON PA Unavailable Unavailable NANDA, L YEISON PA Unavailable Unavailable NANDA, L YEISON PA Unavailable Unavailable NANDA, L YEISON PA Unavailable Unavailable NANDA, L YEISON PA Unavailable Unavailable NANDA, L YEISON PA Unavailable Unavailable NANDA, L YEISON PA Unavailable Unavailable NANDA, L YEISON PA Unavailable Unavailable NANDA, L YEISON PA Unavailable Unavailable Banks Villanueva, Lanre Jordan MD, FACS Unavailable Unavailable Banks Villanueva, Lanre Jordan MD, FACS Unavailable Unavailable Banks Villanueva, Lanre Jordan MD, FACS Unavailable Unavailable Banks Villanueva, Lanre Jordan MD, FACS Unavailable Unavailable Banks Villanueva, Lanre Jordan MD, FACS Unavailable Unavailable Banks Villanueva, Lanre Jordan MD, FACS Unavailable Unavailable Banks Villanueva, Lanre Jordan MD, FACS Unavailable Unavailable Banks Villanueva, Lanre Jordan MD, FACS Unavailable Unavailable Banks Villanueva, Lanre Jordan MD, FACS Unavailable Unavailable Banks Villanueva, Lanre Jordan MD, FACS Unavailable Unavailable Banks Villanueva, Lanre Jordan MD, FACS Unavailable Unavailable Banks Villanueva, Lanre Jordan MD, FACS Unavailable Unavailable Banks Villanueva, Lanre Jordan MD, FACS Unavailable Unavailable Banks Villanueva, Lanre Jordan MD, FACS Unavailable Unavailable Banks Villanueva, Lanre Jordan MD, FACS Unavailable Unavailable Banks Villanueva, Lanre Jordan MD, FACS Unavailable Unavailable Banks Villanueva, Lanre Jordan MD, FACS Unavailable Unavailable Banks Villanueva, Lanre Jordan MD, FACS Unavailable Unavailable Banks Villanueva, Lanre Jordan MD, FACS Unavailable Unavailable Banks Villanueva, Lanre Jordan MD, FACS Unavailable Unavailable Banks Villanueva, Lanre Jordan MD, FACS Unavailable Unavailable Banks Villanueva, Lanre Jordan MD, FACS Unavailable Unavailable Banks Villanueva, Lanre Jordan MD, FACS Unavailable Unavailable Banks Villanueva, Lanre Jordan MD, FACS Unavailable Unavailable Banks Villanueva, Lanre Jordan MD, FACS Unavailable Unavailable Banks Villanueva, Lanre Jordan MD, FACS Unavailable Unavailable Banks Villanueva, Lanre Jordan MD, FACS Unavailable Unavailable Banks Villanueva, Lanre Jordan MD, FACS Unavailable Unavailable Banks Villanueva, Lanre Jordan MD, FACS Unavailable Unavailable Banks Villanueva, Lanre Jordan MD, FACS Unavailable Unavailable Banks Villanueva, Lanre Jordan MD, FACS Unavailable Unavailable Banks Villanueva, Lanre Jordan MD, FACS Unavailable Unavailable Banks Villanueva, Lanre Jordan MD, FACS Unavailable Unavailable Banks Villanueva, Lanre Jordan MD, FACS Unavailable Unavailable Banks Villanueva, Lanre Jordan MD, FACS Unavailable Unavailable Banks Villanueva, Lanre Jordan MD, FACS Unavailable Unavailable Banks Villanueva, Lanre Jordan MD, FACS Unavailable Unavailable Banks Villanueva, Lanre Jordan MD, FACS Unavailable Unavailable Lanre Johnson MD, FACS Unavailable Unavailable Re-disclosure Warning The records that you are about to access may contain information from federally-assisted alcohol or drug abuse programs. If such information is present, then the following federally mandated warning applies: This information has been disclosed to you from records protected by federal confidentiality rules (42 CFR part 2). The federal rules prohibit you from making any further disclosure of this information unless further disclosure is expressly permitted by the written consent of the person to whom it pertains or as otherwise permitted by 42 CFR part 2. A general authorization for the release of medical or other information is NOT sufficient for this purpose. The Federal rules restrict any use of the information to criminally investigate or prosecute any alcohol or drug abuse patient.The records that you are about to access may contain highly sensitive health information, the redisclosure of which is protected by Article 27-F of the [facility] Public Health law. If you continue you may have access to information: Regarding HIV / AIDS; Provided by facilities licensed or operated by the [facility] Office of Mental Health; or Provided by the [facility] Office for People With Developmental Disabilities. If such information is present, then the following [facility] mandated warning applies: This information has been disclosed to you from confidential records which are protected by state law. State law prohibits you from making any further disclosure of this information without the specific written consent of the person to whom it pertains, or as otherwise permitted by law. Any unauthorized further disclosure in violation of state law may result in a fine or chcf sentence or both. A general authorization for the release of medical or other information is NOT sufficient authorization for further disc losure. Allergies and Adverse Reactions Type Description Substance Reaction Status Data Source(s ) Allergy to substance No Known Allergies No known allergies (situation ) GIORGI (Julian Villanueva MD [facility]) Allergy to substance No Known Allergies No known allergies (situation ) GIORGI (Julian Villanueva MD [facility]) Family History Family Member Name Family Member Gender Family Member Status Date o f Status Description Data Source(s) Unknown Female Problem MEDENT ([facility], ) Unknown Unknown Problem MEDENT ([facility]) Encounters Encounter Providers Location Date Indications Data Source(s ) Outpatient SJP-SJP 06/05/2021 12:32:24 PM EDT [facility] Outpatient SJP.СЕРГЕЙ-SJP.СЕРГЕЙ 06/02/2021 12:00:00 AM EDT [facility] Outpatient Attender: YEISON HARO Main Office 05/06/2021 0 9:30:00 AM EDT MASSIMO ([facility]) Outpatient Attender: Nazia HARTMANN SJP.СЕРГЕЙ-SJP.СЕРГЕЙ 2020 12:00:00 AM EDT - 05/04/2021 03:46:00 PM EDT [facility] Outpatient [address] [facility] [address] 05/04/2021 12:00:00 AM EDT eCW1 ([facility]) Unknown [address] [facility] [address] 05/02/2021 12:00:00 AM EDT eCW1 ([facility]) Unknown [address] [facility] [address] 05/02/2021 12:00:00 AM EDT eCW1 ([facility]) Unknown [address] [facility] [address] 04/27/2021 12:00:00 AM EDT eCW1 ([facility]) Unknown [address] [facility] [address] 04/21/2021 12:00:00 AM EDT eCW1 ([facility]) Out[place] [address] [facility] [place] [address] 04/18/2021 12:00:00 AM EDT eCW1 ([facility]) Outpatient [address] [facility] [place] [address] 04/08/2021 12:00:00 AM EDT eCW1 ([facility]) Outpatient Attender: Kae Gardiner MDAdmitter: Kae fowler MD [email or web address].CVAU 04/06/2021 05:34:00 AM EDT - 04/06/2021 11:01:00 AM EDT [facility] Patient discharged. Outpatient Attender: Nazia ZUNIGAСЕРГЕЙ-SJP.СЕРГЕЙ 2020 12:00:00 AM EDT - 03/30/2021 09:42:56 AM EDT [facility] Unknown [address] [facility] [address] 03/29/2021 12:00:00 AM EDT eCW1 ([facility]) Outpatient Referrer: EUSEBIO MOREIRA-SJP.СЕРГЕЙ 03/23/2021 08:18:48 AM EDT [facility] Outpatient Referrer: EUSEBIO MOREIRA-SJP.СЕРГЕЙ 03/16/2021 12:00:00 AM EDT [facility] Unknown [address] [facility] [address] 03/09/2021 12:00:00 AM EDT eCW1 ([facility] Unknown [address] [facility] [address] 02/28/2021 12:00:00 AM EDT eCW1 ([facility]) Outpatient [address] [facility] [address] 02/23/2021 12:00:00 AM EDT eCW1 ([facility]) Unknown [address] [facility] [address] 02/14/2021 12:00:00 AM EDT eCW1 ([facility]) Unknown [address] [facility] [address] 02/08/2021 12:00:00 AM EDT eCW1 ([facility]) Unknown [address] [facility] [address] 01/20/2021 12:00:00 AM EDT eCW1 ([facility]) Outpatient Attender: EUSEBIO HUNT MDReferrer: Ulises LaceyСЕРГЕЙ-SJP.СЕРГЕЙ 01/19/2021 12:00:00 AM EDT - 01/19/2021 12:15:24 PM EDT [facility] Unknown [address] [facility] [place] [address] 01/18/2021 12:00:00 AM EDT eCW1 ([facility]) Outpatient [address] [facility] [address] 01/13/2021 12:00:00 AM EDT eCW1 ([facility]) Unknown [address] [facility] [place] [address] 01/03/2021 12:00:00 AM EDT eCW1 ([facility]) Outpatient [address] [facility] [id number] 12/28/2020 12:00:00 AM EDT eCW1 ([facility]) (Trus F/U) Urology [address] [place] [phone] 12/06/2020 12:00:00 AM EDT eCW1 ([facility]) (Trus Bx1) Urology [address] [place] [address] 11/30/2020 12:00:00 AM EDT eCW1 ([facility]) Unknown [address] [facility] [address] 11/02/2020 12:00:00 AM EDT eCW1 ([facility]) Unknown [address] [facility] [address] 10/27/2020 12:00:00 AM EST eCW1 ([facility]) Outpatient [address] [place] [id number] 10/25/2020 12:00:00 AM EST eCW1 ([facility]) Outpatient<td ID="encounterTypeDescripti onID0">1 Year Follow-Up</td><td>Julian Brito MD, FACS</td><td>Julian Brito MD [facility]</td><td>09/13/2020</td><td>10:01AM</td><td>11:13AM</td><td><content ID="encounterDiagnosisID0-0">Cataract Senile Nuclear</content>, <content ID="encounterDiagnosisID0-1">Dry Eye Syndrome Both Eyes</content>, <content ID="encounterDiagnosisID0-2">Vitreous Disorders Degeneration</content></td> Attender: Julian Villanueva MD, FACS Julian Brito MD [facility] 09/13/2020 10:01:0 0 AM EST - 09/13/2020 11:13:00 AM EST Vitreous Disorders DegenerationDry Eye Syndrome Both EyesCataract Senile NuclearVitreous Disorders DegenerationDry Eye Syndrome Both EyesCataract Senile Nuclear GIORGI (Julian Villanueva MD [facility]) 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 Unknown [address] [facility] [place] [address] 08/02/2020 12:00:00 AM EST eCW1 [facility] Outpatient [address] [facility] [place] [address] 07/26/2020 12:00:00 AM EST [facility]CW1 [facility] Unknown [address] [facility] [place] [address] 07/13/2020 12:00:00 AM EST eCW1 [facility] Unknown [address] [facility] [address] 07/08/2020 12:00:00 AM EST eCW1 [facility] Outpatient Attender: Denise CRUZP-[facility] EM[facility]Y [facility]-CLN2 04/27/2020 01:50:00 PM EDT - 04/27/2020 01:50:00 PM [facility] (DOT PHYS) DOT Physical [facility] 03/2020 12:00:00 AM EDT eCW1 ([facility]) Immunizations Vaccine Date Status Description Data Source(s) pneumococcal polysaccharide PPV23 02/23/2021 10:17:00 AM EDT comple clif eCW1 ([facility]) pneumococcal polysaccharide PPV23 02/23/2021 10:17:00 AM EDT comple clif eCW1 ([facility]) pneumococcal polysaccharide PPV23 02/23/2021 10:17:00 AM EDT comple clif eCW1 ([facility]) pneumococcal polysaccharide PPV23 02/23/2021 10:17:00 AM EDT comple clif eCW1 ([facility]) pneumococcal polysaccharide PPV23 02/23/2021 10:17:00 AM EDT comple clif eCW1 (Formerly [facility]) pneumococcal polysaccharide PPV23 02/23/2021 10:17:00 AM EDT comple clif eCW1 (Formerly [facility]) pneumococcal polysaccharide PPV23 02/23/2021 10:17:00 AM EDT comple clif eCW1 (Formerly [facility]) pneumococcal polysaccharide PPV23 02/23/2021 10:17:00 AM EDT comple clif eCW1 (Formerly [facility]) pneumococcal polysaccharide PPV23 02/23/2021 10:17:00 AM EDT comple clif eCW1 (Formerly [facility]) pneumococcal polysaccharide PPV23 02/23/2021 10:17:00 AM EDT comple clif eCW1 (Formerly [facility]) pneumococcal polysaccharide PPV23 02/23/2021 10:17:00 AM EDT comple clif eCW1 (Formerly [facility]) pneumococcal polysaccharide PPV23 02/23/2021 10:17:00 AM EDT comple clif eCW1 (Formerly [facility]) Moderna #2 dose COVID-19(given elsewhere) SARSCOV2 VAC 100MCG/0.5ML IM 12/20/2020 10:23:00 AM EDT completed eCW1 ([facility]) Moderna #2 dose COVID-19(given elsewhere) SARSCOV2 VAC 100MCG/0.5ML IM 12/20/2020 10:23:00 AM EDT completed eCW1 ([facility]) Moderna #2 dose COVID-19(given elsewhere) SARSCOV2 VAC 100MCG/0.5ML IM 12/20/2020 10:23:00 AM EDT completed eCW1 ([facility]) Moderna #2 dose COVID-19(given elsewhere) SARSCOV2 VAC 100MCG/0.5ML IM 12/20/2020 10:23:00 AM EDT completed eCW1 ([facility]) Moderna #2 dose COVID-19(given elsewhere) SARSCOV2 VAC 100MCG/0.5ML IM 12/20/2020 10:23:00 AM EDT completed eCW1 ([facility]) Moderna #2 dose COVID-19(given elsewhere) SARSCOV2 VAC 100MCG/0.5ML IM 12/20/2020 10:23:00 AM EDT completed eCW1 ([facility]) Moderna #2 dose COVID-19(given elsewhere) SARSCOV2 VAC 100MCG/0.5ML IM 12/20/2020 10:23:00 AM EDT completed eCW1 ([facility]) Moderna #2 dose COVID-19(given elsewhere) SARSCOV2 VAC 100MCG/0.5ML IM 12/20/2020 10:23:00 AM EDT completed eCW1 ([facility]) Moderna #2 dose COVID-19(given elsewhere) SARSCOV2 VAC 100MCG/0.5ML IM 12/20/2020 10:23:00 AM EDT completed eCW1 ([facility]) Moderna #2 dose COVID-19(given elsewhere) SARSCOV2 VAC 100MCG/0.5ML IM 12/20/2020 10:23:00 AM EDT completed eCW1 ([facility]) Moderna #2 dose COVID-19(given elsewhere) SARSCOV2 VAC 100MCG/0.5ML IM 12/20/2020 10:23:00 AM EDT completed eCW1 ([facility]) Moderna #2 dose COVID-19(given elsewhere) SARSCOV2 VAC 100MCG/0.5ML IM 12/20/2020 10:23:00 AM EDT completed eCW1 ([facility]) COVID-19 VACCINE Moderna 12/20/2020 12:00:00 AM EDT completed [facility] Vaccine Series Complete: YESThis Data wa s Submitted to [facility] Via [facility]. COVID-19 VACC,MRNA(MODERNA)/PF 12/20/2020 12:00:00 AM EDT completed [facility] Moderna #1 dose COVID-19(given elsewhere) SARSCOV2 VAC 100MCG/0.5ML IM 11/18/2020 10:23:00 AM EDT completed eCW1 ([facility]) Moderna #1 dose COVID-19(given elsewhere) SARSCOV2 VAC 100MCG/0.5ML IM 11/18/2020 10:23:00 AM EDT completed eCW1 ([facility]) Moderna #1 dose COVID-19(given elsewhere) SARSCOV2 VAC 100MCG/0.5ML IM 11/18/2020 10:23:00 AM EDT completed eCW1 ([facility]) Moderna #1 dose COVID-19(given elsewhere) SARSCOV2 VAC 100MCG/0.5ML IM 11/18/2020 10:23:00 AM EDT completed eCW1 ([facility]) Moderna #1 dose COVID-19(given elsewhere) SARSCOV2 VAC 100MCG/0.5ML IM 11/18/2020 10:23:00 AM EDT completed eCW1 ([facility]) Moderna #1 dose COVID-19(given elsewhere) SARSCOV2 VAC 100MCG/0.5ML IM 11/18/2020 10:23:00 AM EDT completed eCW1 ([facility]) Moderna #1 dose COVID-19(given elsewhere) SARSCOV2 VAC 100MCG/0.5ML IM 11/18/2020 10:23:00 AM EDT completed eCW1 ([facility]) Moderna #1 dose COVID-19(given elsewhere) SARSCOV2 VAC 100MCG/0.5ML IM 11/18/2020 10:23:00 AM EDT completed eCW1 ([facility]) Moderna #1 dose COVID-19(given elsewhere) SARSCOV2 VAC 100MCG/0.5ML IM 11/18/2020 10:23:00 AM EDT completed eCW1 ([facility]) Moderna #1 dose COVID-19(given elsewhere) SARSCOV2 VAC 100MCG/0.5ML IM 11/18/2020 10:23:00 AM EDT completed eCW1 ([facility]) Moderna #1 dose COVID-19(given elsewhere) SARSCOV2 VAC 100MCG/0.5ML IM 11/18/2020 10:23:00 AM EDT completed eCW1 ([facility]) Moderna #1 dose COVID-19(given elsewhere) SARSCOV2 VAC 100MCG/0.5ML IM 11/18/2020 10:23:00 AM EDT completed eCW1 ([facility]) COVID-19 VACCINE Moderna 11/18/2020 12:00:00 AM EDT completed [facility] Vaccine Series Complete: NOThis Data was Submitted to [facility] Via [facility]. COVID-19 VACCINE, MRNA-1273, LNP-S (MODERNA)/PF 11/18/2020 1 2:00:00 AM EDT completed [facility] INFLUENZA VIRUS VACCINE QUADRIVAL SPLIT 2019-21(65 YR UP)/PF 08/01/2020 12:00:00 AM EST completed [facility] Medications Medication Brand Name Start Date Product Form Dose Route Admi nistrative Instructions Pharmacy Instructions Status Indications Reaction Description Data Source(s) 5-325 mg 04/29/2021 12:00:00 AM EDT tablet 20 TAKE ONE TABLET BY MOUTH EVERY 6 HOURS NEEDED FOR PAIN MAXIMUM DAILY DOSE = 4 TABLETS TAKE ONE TABLET BY MOUTH EVERY 6 HOURS NEEDED FOR PAIN MAXIMUM DAILY DOSE = 4 TABLETS SOLD: 04/29/2021 [facility] 20 mg 04/19/2021 12:00:00 AM EDT capsule,delayed release (DR/EC) 90 TAKE ONE CAPSULE BY MOUTH EVERY DAY 30 MINUTES BEFORE MORNING MEAL TAKE ONE CAPSULE BY MOUTH EVERY DAY 30 MINUTES BEFORE MORNING MEAL SOLD: 04/22/2021 [facility] Lisinopril 20 MG Oral Tablet lisinopril (PRINIVIL,ZEST RIL) 20 MG tablet lisinopril (PRINIVIL,ZESTRIL) 20 MG tablet 04/08/2021 12:00:00 AM EDT 20 mg Oral active Take 1 tablet (20 mg total) by mouth daily [facility] normal saline flush 0.9 % injection 3 mL [id number] 04/06/2021 09:00:00 AM EDT 3 mL Intravenous active 3 mL , Intravenous, PROTOCOL, First dose on Sun04/06/21 at 0900, Pre-op
flush per protocol, D/C Main IV fluid if appropriate
[facility] Medication administered onsite iopamidol (ISOVUE-370) 76 % [id number] 04/06/2021 08:31:28 AM EDT active As needed, Starting on Sun04/06/21 at 0831, Intra-Proc edure [facility] Medication administered onsite 1 ML heparin sodium, porcine 1000 UNT/ML Injection hep eusebio (porcine) injection heparin (porcine) injection 04/06/2021 08:13:25 AM EDT active As needed, Starting on Sun04/06/21 at 0813, Intra-Procedure [facility] Medication administered onsite 4 ML Verapamil hydrochloride 2.5 MG/ML Injection verap daniel (ISOPTIN) injection verapamil (ISOPTIN) injection 04/06/2021 08:13:11 AM EDT active As needed, Starting on Sun04/06/21 at 0813, Intra-Procedure [facility] Medication administered onsite 2 ML Midazolam 1 MG/ML Injection midazolam (VERSED) in jection midazolam (VERSED) injection 04/06/2021 08:12:31 AM EDT active As needed, Starting on Sun04/06/21 at 0812, Intra-Procedure [facility] Medication administered onsite fentaNYL Citrate (PF) (SUBLIMAZE) injection [id number] 04/06/2021 08:12:21 AM EDT active As neede d, Starting on Sun04/06/21 at 0812, Intra-Procedure [facility] Medication administered onsite lidocaine 1 % injection [id number] 04/06/2021 08:12:07 AM EDT active As needed, Starting on Sun at 0812, Intra-Procedure [facility] Medication administered onsite normal saline flush 0.9 % injection 3 mL [id number] 04/06/2021 07:00:00 AM EDT 3 mL Intravenous active 3 mL , Intravenous, Every 8 hours (scheduled), First dose on Sun04/06/21 at 0700, Pre-op
Rapid push positive pressure flushing shall be performed with a 10 cc normal saline syringe to check the PATENCY of a PIV site prior to any infusion therapy initiation unless resistance is met.
[facility] Medication administered onsite normal saline flush 0.9 % injection 3 mL [id number] 04/06/2021 07:00:00 AM EDT 3 mL Intravenous active 3 mL , Intravenous, Every 8 hours (scheduled), First dose on Sun04/06/21 at 0700, Pre-op
Rapid push positive pressure flushing shall be performed with a 10 cc normal saline syringe to check the PATENCY of a PIV site prior to any infusion therapy initiation unless resistance is met.
[facility] Medication administered onsite Aspirin 325 MG Oral Tablet aspirin tablet 325 mg aspirin tab let 325 mg 04/06/2021 07:00:00 AM EDT 325 mg Oral completed 325 mg, Oral, Once, On Sun04/06/21 at 0700, For 1 dose, Pre-op
Give if scheduled for cardiac or peripheral angioplasty/stent or carotid stenting. Administer AM dose prior to procedure if NOT taken at home. Max of 1 dose per day.
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
Start two hours prior to scheduled start time
[facility] Medication administered onsite 75 mg 03/31/2021 12:00:00 AM EDT tablet 4 TAKE 4 TABLETS BY MOUTH ONCE THE NIGHT BEFORE CARDIAC CATHETERIZATION TAKE 4 TABLETS BY MOUTH ONCE THE NIGHT BEFORE CARDIAC CATHETERIZATION SOLD: 04/01/2021 [facility] clopidogrel 75 MG Oral Tablet clopidogrel (PLAVIX) 75 MG tablet clopidogrel (PLAVIX) 75 MG tablet 03/30/2021 12:00:00 AM EDT aborted Cardiac ischemiaAbnormal EKG Take 4 tablets by mouth once the night before cardiac catheterization. [facility] Cardiac ischemia Abnormal EKG aminophylline injection 75 mg [id number] 03/23/2021 11:00:00 AM EDT 75 mg Intravenous active Pre-operative cardiovascular examinati onAbnormal EKG [facility] Pre-operative cardiovascular examination Abnormal EKG 10 mg 03/17/2021 12:00:00 AM EDT tablet extended release 24 hr 90 TAKE ONE TABLET BY MOUTH EVERY DAY IMMEDIATELY AFTER SAME MEAL TAKE ONE TABLET BY MOUTH EVERY DAY IMMEDIATELY AFTER SAME MEAL SOLD: 03/17/2021 [facility] 40 mg 03/07/2021 12:00:00 AM EDT tablet 90 TAKE ONE TABLET BY MOUTH IN THE EVENING TAKE ONE TABLET BY MOUTH IN THE EVENING SOLD: 03/10/2021 [facility] 40 mg 02/07/2021 12:00:00 AM EDT tablet 39 TAKE ONE TABLET BY MOUTH EVERY EVENING TAKE ONE TABLET BY MOUTH EVERY EVENING SOLD: 03/01/2021 [facility] 20 mg 01/18/2021 12:00:00 AM EDT tablet,delayed release (DR/EC) 90 ONE BY MOUTH EVERY MORNING 30 MINUTES BEFORE MEAL ONE BY MOUTH EVERY MORNING 30 MINUTES BEFORE MEAL SOLD: 01/19/2021 [facility] 10 mg 12/22/2020 12:00:00 AM EDT tablet extended release 24 hr 90 TAKE 1 TABLET BY MOUTH IMMEDIATELY AFTER THE SAME MEAL ONCE DAILY TAKE 1 TABLET BY MOUTH IMMEDIATELY AFTER THE SAME MEAL ONCE DAILY SOLD: 12/22/2020 [facility] Sodium Phosphate, Dibasic 59.3 MG/ML / S odium Phosphate, Monobasic 161 MG/ML Enema [facility] 7-19 GM/118ML Fleet Enema 7-19 GM/118ML 11/08/2020 12:00:00 AM EDT suspended Fleet Enema 7- 19 GM/118ML eCW1 (Formerly [facility]) Sodium Phosphate, Dibasic 59.3 MG/ML / S odium Phosphate, Monobasic 161 MG/ML Enema Fleet Enema 7-19 GM/118ML Fleet Enema 7-19 GM/118ML 11/08/2020 12:00:00 AM EDT active Fleet Enema 7-19 GM/118ML eCW1 (Formerly [facility]) Sodium Phosphate, Dibasic 59.3 MG/ML / S odium Phosphate, Monobasic 161 MG/ML Enema Fleet Enema 7-19 GM/118ML Fleet Enema 7-19 GM/118ML 11/08/2020 12:00:00 AM EDT active Fleet Enema 7-19 GM/118ML eCW1 ([facility]ly [facility]) Sulfamethoxazole 800 MG / Trimethoprim 1 60 MG Oral Tablet [Bactrim] Bactrim DS 800-160 MG Bactrim DS 800-160 MG 11/08/2020 12:00:00 AM EDT suspended Bactrim DS 800-160 MG eCW1 ([facility]) 800-160 mg 11/08/2020 12:00:00 AM EDT tablet 2 TAKE 1 TABLET THE NIGHT BEFORE YOUR BIOPSY AND 1 THE MORNING OF TAKE 1 TABLET THE NIGHT BEFORE YOUR BIOPSY AND 1 THE MORNING OF SOLD: 11/09/2020 [facility] Sulfamethoxazole 800 MG / Trimethoprim 1 60 MG Oral Tablet [Bactrim] Bactrim DS 800-160 MG Bactrim DS 800-160 MG 11/08/2020 12:00:00 AM EDT active Bactrim DS 800-160 MG eCW1 ([facility]) Sulfamethoxazole 800 MG / Trimethoprim 1 60 MG Oral Tablet [Bactrim] Bactrim DS 800-160 MG Bactrim DS 800-160 MG 11/08/2020 12:00:00 AM EDT suspended Bactrim DS 800-160 MG eCW1 ([facility]) Sulfamethoxazole 800 MG / Trimethoprim 1 60 MG Oral Tablet [Bactrim] Bactrim DS 800-160 MG Bactrim DS 800-160 MG 11/08/2020 12:00:00 AM EDT suspended Bactrim DS 800-160 MG eCW1 ([facility]) Sodium Phosphate, Dibasic 59.3 MG/ML / S odium Phosphate, Monobasic 161 MG/ML Enema Fleet Enema 7-19 GM/118ML Fleet Enema 7-19 GM/118ML 11/08/2020 12:00:00 AM EDT active Fleet Enema 7-19 GM/118ML eCW1 ([facility]) Sodium Phosphate, Dibasic 59.3 MG/ML / S odium Phosphate, Monobasic 161 MG/ML Enema Fleet Enema 7-19 GM/118ML Fleet Enema 7-19 GM/118ML 11/08/2020 12:00:00 AM EDT suspended Fleet Enema 7- 19 GM/118ML eCW1 ([facility]) Sodium Phosphate, Dibasic 59.3 MG/ML / S odium Phosphate, Monobasic 161 MG/ML Enema Fleet Enema 7-19 GM/118ML Fleet Enema 7-19 GM/118ML 11/08/2020 12:00:00 AM EDT suspended Fleet Enema 7- 19 GM/118ML eCW1 ([facility]) Sodium Phosphate, Dibasic 59.3 MG/ML / S odium Phosphate, Monobasic 161 MG/ML Enema Fleet Enema 7-19 GM/118ML Fleet Enema 7-19 GM/118ML 11/08/2020 12:00:00 AM EDT active Fleet Enema 7-19 GM/118ML eCW1 ([facility]) Sodium Phosphate, Dibasic 59.3 MG/ML / S odium Phosphate, Monobasic 161 MG/ML Enema Fleet Enema 7-19 GM/118ML Fleet Enema 7-19 GM/118ML 11/08/2020 12:00:00 AM EDT suspended Fleet Enema 7- 19 GM/118ML eCW1 ([facility]) Sulfamethoxazole 800 MG / Trimethoprim 1 60 MG Oral Tablet [Bactrim] Bactrim DS 800-160 MG Bactrim DS 800-160 MG 11/08/2020 12:00:00 AM EDT active Bactrim DS 800-160 MG eCW1 ([facility]) Sulfamethoxazole 800 MG / Trimethoprim 1 60 MG Oral Tablet [Bactrim] Bactrim DS 800-160 MG Bactrim DS 800-160 MG 11/08/2020 12:00:00 AM EDT active Bactrim DS 800-160 MG eCW1 ([facility]) Sodium Phosphate, Dibasic 59.3 MG/ML / S odium Phosphate, Monobasic 161 MG/ML Enema Fleet Enema 7-19 GM/118ML Fleet Enema 7-19 GM/118ML 11/08/2020 12:00:00 AM EDT suspended Fleet Enema 7- 19 GM/118ML eCW1 ([facility]) Sodium Phosphate, Dibasic 59.3 MG/ML / S odium Phosphate, Monobasic 161 MG/ML Enema Fleet Enema 7-19 GM/118ML Fleet Enema 7-19 GM/118ML 11/08/2020 12:00:00 AM EDT suspended Fleet Enema 7- 19 GM/118ML eCW1 ([facility]) Sulfamethoxazole 800 MG / Trimethoprim 1 60 MG Oral Tablet [Bactrim] Bactrim DS 800-160 MG Bactrim DS 800-160 MG 11/08/2020 12:00:00 AM EDT active Bactrim DS 800-160 MG eCW1 ([facility]) Sulfamethoxazole 800 MG / Trimethoprim 1 60 MG Oral Tablet [Bactrim] Bactrim DS 800-160 MG Bactrim DS 800-160 MG 11/08/2020 12:00:00 AM EDT suspended Bactrim DS 800-160 MG eCW1 ([facility]) Sulfamethoxazole 800 MG / Trimethoprim 1 60 MG Oral Tablet [Bactrim] Bactrim DS 800-160 MG Bactrim DS 800-160 MG 11/08/2020 12:00:00 AM EDT suspended Bactrim DS 800-160 MG eCW1 ([facility]) Sodium Phosphate, Dibasic 59.3 MG/ML / S odium Phosphate, Monobasic 161 MG/ML Enema Fleet Enema 7-19 GM/118ML Fleet Enema 7-19 GM/118ML 11/08/2020 12:00:00 AM EDT suspended Fleet Enema 7- 19 GM/118ML eCW1 ([facility]) Sodium Phosphate, Dibasic 59.3 MG/ML / S odium Phosphate, Monobasic 161 MG/ML Enema Fleet Enema 7-19 GM/118ML Fleet Enema 7-19 GM/118ML 11/08/2020 12:00:00 AM EDT suspended Fleet Enema 7- 19 GM/118ML eCW1 ([facility]) Sulfamethoxazole 800 MG / Trimethoprim 1 60 MG Oral Tablet [Bactrim] Bactrim DS 800-160 MG Bactrim DS 800-160 MG 11/08/2020 12:00:00 AM EDT suspended Bactrim DS 800-160 MG eCW1 ([facility]) Sodium Phosphate, Dibasic 59.3 MG/ML / S odium Phosphate, Monobasic 161 MG/ML Enema Fleet Enema 7-19 GM/118ML Fleet Enema 7-19 GM/118ML 11/08/2020 12:00:00 AM EDT active Fleet Enema 7-19 GM/118ML eCW1 ([facility]) Sulfamethoxazole 800 MG / Trimethoprim 1 60 MG Oral Tablet [Bactrim] Bactrim DS 800-160 MG Bactrim DS 800-160 MG 11/08/2020 12:00:00 AM EDT suspended Bactrim DS 800-160 MG eCW1 ([facility]) Sodium Phosphate, Dibasic 59.3 MG/ML / S odium Phosphate, Monobasic 161 MG/ML Enema Fleet Enema 7-19 GM/118ML Fleet Enema 7-19 GM/118ML 11/08/2020 12:00:00 AM EDT suspended Fleet Enema 7- 19 GM/118ML eCW1 ([facility]) Sulfamethoxazole 800 MG / Trimethoprim 1 60 MG Oral Tablet [Bactrim] Bactrim DS 800-160 MG Bactrim DS 800-160 MG 11/08/2020 12:00:00 AM EDT suspended Bactrim DS 800-160 MG eCW1 ([facility]) Sulfamethoxazole 800 MG / Trimethoprim 1 60 MG Oral Tablet [Bactrim] Bactrim DS 800-160 MG Bactrim DS 800-160 MG 11/08/2020 12:00:00 AM EDT suspended Bactrim DS 800-160 MG eCW1 ([facility]) Sodium Phosphate, Dibasic 59.3 MG/ML / S odium Phosphate, Monobasic 161 MG/ML Enema Fleet Enema 7-19 GM/118ML Fleet Enema 7-19 GM/118ML 11/08/2020 12:00:00 AM EDT suspended Fleet Enema 7- 19 GM/118ML eCW1 ([facility]) Sulfamethoxazole 800 MG / Trimethoprim 1 60 MG Oral Tablet [Bactrim] Bactrim DS 800-160 MG Bactrim DS 800-160 MG 11/08/2020 12:00:00 AM EDT suspended Bactrim DS 800-160 MG eCW1 ([facility]) Sulfamethoxazole 800 MG / Trimethoprim 1 60 MG Oral Tablet [Bactrim] Bactrim DS 800-160 MG Bactrim DS 800-160 MG 11/08/2020 12:00:00 AM EDT active Bactrim DS 800-160 MG eCW1 ([facility]) 50 mg 09/16/2020 12:00:00 AM EST capsule 30 TAKE ONE CAPSULE BY MOUTH EVERY DAY NEEDED FOR PAIN TAKE ONE CAPSULE BY MOUTH EVERY DAY NEEDED FOR PAIN SOLD: 12/22/2020 [facility] 50 mg 09/16/2020 12:00:00 AM EST capsule 30 TAKE ONE CAPSULE BY MOUTH EVERY DAY NEEDED FOR PAIN TAKE ONE CAPSULE BY MOUTH EVERY DAY NEEDED FOR PAIN SOLD: 10/19/2020 [facility] 50 mg 09/16/2020 12:00:00 AM EST capsule 30 TAKE ONE CAPSULE BY MOUTH EVERY DAY NEEDED FOR PAIN TAKE ONE CAPSULE BY MOUTH EVERY DAY NEEDED FOR PAIN SOLD: 09/18/2020 [facility] 50 mg 09/16/2020 12:00:00 AM EST capsule 30 TAKE ONE CAPSULE BY MOUTH EVERY DAY NEEDED FOR PAIN TAKE ONE CAPSULE BY MOUTH EVERY DAY NEEDED FOR PAIN SOLD: 11/13/2020 [facility] Hydroxyzine Hydrochloride 10 MG Oral Tablet hydrOXYzin e HCl 10 MG hydrOXYzine HCl 10 MG 08/25/2020 12:00:00 AM EST 1.0 {tablet_as_needed} active hydrOXYzine HCl 10 MG eCW1 ([facility]) Hydroxyzine Hydrochloride 10 MG Oral Tablet hydrOXYzin e HCl 10 MG hydrOXYzine HCl 10 MG 08/25/2020 12:00:00 AM EST 1.0 {tablet_as_needed} active hydrOXYzine HCl 10 MG eCW1 ([facility]) Hydroxyzine Hydrochloride 10 MG Oral Tablet HydrOXYzin e HCl 10 MG HydrOXYzine HCl 10 MG 08/25/2020 12:00:00 AM EST 1.0 {tablet_as_needed} active HydrOXYzine HCl 10 MG eCW1 ([facility]) Hydroxyzine Hydrochloride 10 MG Oral Tablet hydrOXYzin e HCl 10 MG hydrOXYzine HCl 10 MG 08/25/2020 12:00:00 AM EST 1.0 {tablet_as_needed} active hydrOXYzine HCl 10 MG eCW1 ([facility]) Hydroxyzine Hydrochloride 10 MG Oral Tablet hydrOXYzin e HCl 10 MG hydrOXYzine HCl 10 MG 08/25/2020 12:00:00 AM EST 1.0 {tablet_as_needed} active hydrOXYzine HCl 10 MG eCW1 ([facility]) Hydroxyzine Hydrochloride 10 MG Oral Tablet hydrOXYzin e HCl 10 MG hydrOXYzine HCl 10 MG 08/25/2020 12:00:00 AM EST 1.0 {tablet_as_needed} active hydrOXYzine HCl 10 MG eCW1 ([facility]) Hydroxyzine Hydrochloride 10 MG Oral Tablet hydrOXYzin e HCl 10 MG hydrOXYzine HCl 10 MG 08/25/2020 12:00:00 AM EST 1.0 {tablet_as_needed} active hydrOXYzine HCl 10 MG eCW1 ([facility]) Hydroxyzine Hydrochloride 10 MG Oral Tablet HydrOXYzin e HCl 10 MG HydrOXYzine HCl 10 MG 08/25/2020 12:00:00 AM EST 1.0 {tablet_as_needed} active HydrOXYzine HCl 10 MG eCW1 ([facility]) Hydroxyzine Hydrochloride 10 MG Oral Tablet HydrOXYzin e HCl 10 MG HydrOXYzine HCl 10 MG 08/25/2020 12:00:00 AM EST 1.0 {tablet_as_needed} active HydrOXYzine HCl 10 MG eCW1 ([facility]) Hydroxyzine Hydrochloride 10 MG Oral Tablet HydrOXYzin e HCl 10 MG HydrOXYzine HCl 10 MG 08/25/2020 12:00:00 AM EST 1.0 {tablet_as_needed} active HydrOXYzine HCl 10 MG eCW1 ([facility]) 10 mg 08/25/2020 12:00:00 AM EST tablet 30 TAKE ONE TABLET BY MOUTH AT BEDTIME TAKE ONE TABLET BY MOUTH AT BEDTIME SOLD: 08/26/2020 [facility] Hydroxyzine Hydrochloride 10 MG Oral Tablet HydrOXYzin e HCl 10 MG HydrOXYzine HCl 10 MG 08/25/2020 12:00:00 AM EST 1.0 {tablet_as_needed} active HydrOXYzine HCl 10 MG eCW1 ([facility]) Hydroxyzine Hydrochloride 10 MG Oral Tablet HydrOXYzin e HCl 10 MG HydrOXYzine HCl 10 MG 08/25/2020 12:00:00 AM EST 1.0 {tablet_as_needed} active HydrOXYzine HCl 10 MG eCW1 ([facility]) Hydroxyzine Hydrochloride 10 MG Oral Tablet HydrOXYzin e HCl 10 MG HydrOXYzine HCl 10 MG 08/25/2020 12:00:00 AM EST 1.0 {tablet_as_needed} active HydrOXYzine HCl 10 MG eCW1 ([facility]) Hydroxyzine Hydrochloride 10 MG Oral Tablet hydrOXYzin e HCl 10 MG hydrOXYzine HCl 10 MG 08/25/2020 12:00:00 AM EST 1.0 {tablet_as_needed} active hydrOXYzine HCl 10 MG eCW1 ([facility]) Hydroxyzine Hydrochloride 10 MG Oral Tablet HydrOXYzin e HCl 10 MG HydrOXYzine HCl 10 MG 08/25/2020 12:00:00 AM EST 1.0 {tablet_as_needed} active HydrOXYzine HCl 10 MG eCW1 ([facility]) Hydroxyzine Hydrochloride 10 MG Oral Tablet HydrOXYzin e HCl 10 MG HydrOXYzine HCl 10 MG 08/25/2020 12:00:00 AM EST 1.0 {tablet_as_needed} active HydrOXYzine HCl 10 MG eCW1 ([facility]) Hydroxyzine Hydrochloride 10 MG Oral Tablet HydrOXYzin e HCl 10 MG HydrOXYzine HCl 10 MG 08/25/2020 12:00:00 AM EST 1.0 {tablet_as_needed} active HydrOXYzine HCl 10 MG eCW1 ([facility]) Hydroxyzine Hydrochloride 10 MG Oral Tablet HydrOXYzin e HCl 10 MG HydrOXYzine HCl 10 MG 08/25/2020 12:00:00 AM EST 1.0 {tablet_as_needed} active HydrOXYzine HCl 10 MG eCW1 ([facility]) 40 mg 08/16/2020 12:00:00 AM EST tablet 90 TAKE ONE TABLET BY MOUTH EVERY DAY TAKE ONE TABLET BY MOUTH EVERY DAY SOLD: 08/17/2020 [facility] 40 mg 08/16/2020 12:00:00 AM EST tablet 90 TAKE ONE TABLET BY MOUTH EVERY DAY TAKE ONE TABLET BY MOUTH EVERY DAY SOLD: 11/13/2020 [facility] 10 mg 08/01/2020 12:00:00 AM EST tablet extended release 24 hr 90 TAKE 1 TABLET BY MOUTH IMMEDIATELY AFTER THE SAME MEAL ONCE DAILY TAKE 1 TABLET BY MOUTH IMMEDIATELY AFTER THE SAME MEAL ONCE DAILY SOLD: 08/01/2020 [facility] 20 mg 05/18/2020 12:00:00 AM EDT capsule,delayed release (DR/EC) 90 TAKE ONE CAPSULE BY MOUTH EVERY DAY TAKE ONE CAPSULE BY MOUTH EVERY DAY SOLD: 05/20/2020 [facility] Lisinopril 20 MG Oral Tablet lisinopril (PRINIVIL,ZEST RIL) 20 MG tablet lisinopril (PRINIVIL,ZESTRIL) 20 MG tablet 20 mg Oral aborted Take 20 mg by mouth daily [facility] celecoxib 50 MG Oral Capsule celecoxib (CeleBREX) 50 M G capsule celecoxib (CeleBREX) 50 MG capsule 50 mg Oral aborted Take 50 mg by mouth daily as needed for pain [facility] Insurance Providers Payer name Policy type / Coverage type Policy ID Covered democrat ID Covered democrat's relationship to maloney Policy [place] Plan Information [employer] [place] 306/806 [id number] SP [id number] MEDICARE [id number] SP [id number] A [employer] PPO 302/307 [id number] SP [id number] [employer] [place] 306/806 [id number] SP [id number] WELLCARE MEDICARE [id number] Marcela 30 [id number] [facility] MEDICARE [id number] [place] 302/307 [id number] SP [id number] MEDICARE [id number] SP [id number] A Medicare Part B of [facility] Other 0 [id number] Self 0 BCBS of [facility] Other 0 [id number] Self [id number] MEDICARE C [id number] S [id number] A [employer] BCBS B [id number] [place] 306/806 [id number] SP [id number] ANSI-Medicare Part B [id number] ANSI-Commercial [id number] ANSI-Commercial [id number] ANSI-Medicare Part B [id number] [facility] [id number] ANSI-Commercial [id number]-[id number] ANSI-Medicare Part B [id number] [facility]BS [facility] 306/806 [id number] SP [id number] ANSI-Medicare Part B [id number] ANSI-Commercial [id number]-[id number] ANSI-Medicare Part B [id number] ANSI-Commercial [id number] [id number] ANSI-Commercial [id number] ANSI-Medicare Part B [id number] ANSI-Commercial [id number] ANSI-Medicare Part B [id number] ANSI-Commercial [id number] ANSI-Medicare Part B [id number] ANSI-Commercial [id number]-[id number] ANSI-Medicare Part B [id number] ANSI-Medicare Part B [id number] ANSI-Commercial [id number] ANSI-Medicare Part B [id number] ANSI-Commercial [id number] ANSI-Commercial [id number] [facility]-Medicare Part B [id number] ANS-Commercial [id number] ANSI-Medicare Part B [id number] [place] 302/307 [id number] SP [id number] [place] 302/307 [id number] SP [id number] [place] 306/806 [id number] SP [id number] [employer] BCBS [facility] Part B [id number] Self Medicare [place] Medicare Primary [id number] Self [place] O 302/307 [id number] SP [id number] Medicare [place] Primary [id number] Self BS Of [place] Commercial [id number] Self [id number] A WELLCARE [id number] SP [id number] WELLCARE [id number] SP [id number] WELLCARE [id number] SP [id number] WELLCARE O [id number] S [id number] SELF PAY [id number] S [id number] MEDICARE [id number] SP [id number] Problems, Conditions, and Diagnoses Code Display Name Description Problem Type Effective Dates Data Source(s) Z95.0 Presence of cardiac pacemaker Presence of cardiac pace maker Diagnosis 05/04/2021 02:20:09 PM EDT [facility] K21.9 Gastro-esophageal reflux disease without esophagitis Gastro-esophageal reflux disease without Diagnosis 05/04/2021 02:20:[address] [facility] N18.30 Chronic kidney disease, stage 3 unspecif ied Chronic kidney disease, stage 3 unspecif Diagnosis 05/04/2021 02:20:09 PM EDT [facility] E78.5 Hyperlipidemia, unspecified Hyperlipidemia, unspecifie d Diagnosis 05/04/2021 02:20:09 PM EDT [facility] Z01.818 Encounter for other preprocedural examin ation Encounter for other preprocedural examin Diagnosis 05/04/2021 02:20:09 PM EDT [facility] R94.31 Abnormal electrocardiogram [ECG] [EKG] A bnormal electrocardiogram (ECG) (EKG) Diagnosis 05/04/2021 02:20:09 PM EDT [facility] I10 Essential (primary) hypertension Essential (primary) h ypertension Diagnosis 05/04/2021 02:20:09 PM EDT [facility] R06.02 Shortness of breath Shortness of breath Diagnosis 0 05/04/2021 02:20:09 PM EDT [facility] I25.9 Chronic ischemic heart disease, unspecif ied Chronic ischemic heart disease, unspecif Diagnosis 05/04/2021 02:20:09 PM EDT [facility] Z02.4 Encounter for examination for driving li cense ENCOUNTER FOR EXAMINATION FOR DRIVING LICENSE Diagnosis 04/27/2020 01[facility]50[facility] Pac[facility] Pacemaker [id number] 05/18/2021 12:00:00 AM ED T [facility] Z95.0 Cardiac pacemaker in situ Cardiac pacemaker in situ Pr oblem 05/06/2021 12:00:00 AM EDT [facility] ([facility]) Z01.812 Preoperative diagnosis Encounter for pre procedural laboratory examination Problem 04/08/2021 12:00:00 AM EDT eCW1 ([facility]) R06.02 Shortness of breath Shortness of breath [id number] 04/01/2021 12:00:00 AM EDT [facility] I25.9 Cardiac ischemia Cardiac ischemia [id number] 04/01/2021 12 :00:00 AM EDT [facility] N18.9 Chronic kidney disease Chronic kidney disease [id number] 03/30/2021 12:00:00 AM EDT [facility] H90.3 [id number] Bilateral sensorineural hearing loss Prob damien 02/23/2021 12:00:00 AM EDT eCW1 ([facility]) K21.9 GERD (gastroesophageal reflux disease) G ERD (gastroesophageal reflux disease) [id number] 01/19/2021 12:00:00 AM EDT [facility] R94.31 Abnormal EKG Abnormal EKG [id number] 01/19/2021 12:00:00 A M EDT [facility] E78.5 Hyperlipidemia Hyperlipidemia [id number] 01/19/2021 12:00: 00 AM EDT [facility] I10 Hypertension Hypertension [id number] 01/19/2021 12:00:00 A M EDT [facility] Z01.818 Pre-op evaluation Pre-op evaluation [id number] 01/19/2021 12:00:00 AM EDT [facility] I44.1 [id number] Second degree atrioventricular block Prob damien 01/13/2021 12:00:00 AM EDT eCW1 ([facility]) N39.0 Urinary tract infectious disease UTI (urinary tract in fection) Problem 12/28/2020 12:00:00 AM EDT eCW1 ([facility]) Z01.818 Pre-procedure evaluation check Preop testing Problem 12/28/2020 12:00:00 AM EDT eCW1 ([facility]) C61 Prostate cancer Prostate cancer Problem 12/06/2020 12:0 0:00 AM EDT eCW1 ([facility]) R97.20 Elevated PSA Elevated prostate specific antigen (PSA) Problem 11/30/2020 12:00:00 AM EDT eCW1 ([facility]) F51.01 [id number] Primary insomnia Problem 08/25/2020 12:00:00 AM EST eCW1 ([facility]) E78.5 [id number] Dyslipidemia Problem 08/25/2020 12:00:00 AM EST eCW1 ([facility]) K21.9 [id number] Chronic GERD Problem 08/25/2020 12:00:00 AM EST eCW1 ([facility]) R73.03 [id number] Prediabetes Problem 08/25/2020 12:00:[address] eCW1 ([facility]) N18.31 [id number] Stage 3a chronic kidney disease Problem 08/25/2020 12:00:00 AM EST eCW1 ([facility]) I11.9 [id number] Hypertensive heart disease without heart failure Problem 08/25/2020 12:00:00 AM EST eCW1 ([facility]) Surgeries/Procedures Procedure Description Date Indications Data Source(s) OFFICE OUTPATIENT VISIT 5 MINUTES 05/06/2021 12:00:00 AM EDT [facility] ([facility]) ECG ROUTINE ECG W/LEAST 12 LDS W/I&R <td>POCT AMB EKG</td><td>Routine</td><td>05/04/2021 4:43 PM EDT</td><td> Cardiac ischemia Shortness of breath Hypertension, unspecified type Abnormal EKG Pre-op evaluation</td><td> </td> 05/04/2021 04:43:00 PM EDT Pre-op evaluationAbnormal EKGHypertensio n, unspecified typeShortness of breathCardiac ischemia [facility] Pre-op evaluation Abnormal EKG Hypertension, unspecified type Shortness of breath Cardiac ischemia Leuprolide acetate (for depot suspension), 7.5 mg 05/04/2021 12:00:00 AM EDT eCW1 ([facility]) CARDIAC CATHETERIZATION <td>CARDIAC CATHETERIZATION</td><td>Routine</td><td>04/06/2021 8:28 AM EDT</td><td> Cardiac ischemia Shortness of breath Hyperlipidemia, unspecified hyperlipidemia type Hypertension, unspecified type Abnormal EKG</td><td> </td> 04/06/2021 08:28:13 AM EDT Abnormal EKGHypertension, unspecified ty peHyperlipidemia, unspecified hyperlipidemia typeShortness of breathCardiac ischemia [facility] Abnormal EKG Hypertension, unspecified type Hyperlipidemia, unspecified hyperlipidem ia type Shortness of breath Cardiac ischemia ECG ROUTINE ECG W/LEAST 12 LDS TRCG ONLY W/O I&R <td>E CG 12- LEAD</td><td>Routine</td><td>04/06/2021 6:17 AM EDT</td><td></td><td></td> 04/06/2021 06:17:46 AM EDT [facility] BLOOD COUNT COMPLETE AUTO&AUTO DIFRNTL WBC COUNT <td>C BC DIFF</td><td>Routine</td><td>03/30/2021 2:30 PM EDT</td><td> Hypertension, unspecified type Hyperlipidemia, unspecified hyperlipidemia type Abnormal EKG</td><td> </td> 03/30/2021 02:30:00 PM EDT Abnormal EKGHyperlipidemia, unspecified hyperlipidemia typeHypertension, unspecified type [facility] Abnormal EKG Hyperlipidemia, unspecified hyperlipidem ia type Hypertension, unspecified type BLOOD COUNT COMPLETE AUTO&AUTO DIFRNTL WBC COUNT <td>C BC AND DIFFERENTIAL</td><td>Routine</td><td>02/24/2021</td><td></td><td> </td> 02/24/2021 12:00:00 AM EDT [facility] LIPID PANEL <td>LIPID PANEL</td><td>Rout ine</td><td>02/24/2021</td><td></td><td> </td> 02/24/2021 12:00:00 AM EDT [facility] BASIC METABOLIC PANEL CALCIUM TOTAL <td>BASIC METABOLI C PANEL</td><td>Routine</td><td>02/24/2021</td><td></td><td> </td> 02/24/2021 12:00:00 AM EDT [facility] PNEUMOCOCCAL POLYSAC VACCINE 23-V 2 />YR SUBQ/IM 02/23 12:00:00 AM EDT eCW1 ([facility]) ECG ROUTINE ECG W/LEAST 12 LDS W/I&R <td>POCT AMB EKG</td><td>Routine</td><td>01/19/2021 12:23 PM EDT</td><td> Hypertension, unspecified type Hyperlipidemia, unspecified hyperlipidemia type Pre-op evaluation</td><td> </td> 01/19/2021 12:23:00 PM EDT Pre-op evaluationHyperlipidemia, unspeci fied hyperlipidemia typeHypertension, unspecified type [facility] Pre-op evaluation Hyperlipidemia, unspecified hyperlipidem ia type Hypertension, unspecified type Medication: 2% Lidocaine Dilutent 11/30/2020 12:00:00 AM EDT eCW1 ([facility]) Medication: Lidocaine HCl 2% Jelly 5mL Intravesically 11/30/2020 12:00:00 AM EDT eCW1 ([facility]) Medication: Bupivacaine 0.25% Dilutent 30ml (Marcaine) 11/30/2020 12:00:00 AM EDT eCW1 ([facility]) Intermediate Eye Exam Established Patient Intermediate Eye Exam Established Patient 09/13/2020 12:00:00 AM EST [facility] (Esa jonathan Villanueva MD [facility]) uro PVR (Post Voiding Residual) Bladder Scan 12:00:00 AM EST eCW1 ([facility]) Results ID Date Data Source [id number] 06/05/2021 12:32:02 PM EDT [facility] Name Value Range Interpretation Code Description Data Sheila rce(s) Supporting Document(s) &PDF [facility] QKIYXw4uGnMJUsSk06/WPRkgCOTbg1EjBNmeEWz9XTlpQNHuJ6LdiNsqPY4BYLIDL25eOtGMTb5IUYHP hdG [file] ICAgICAgICAgICAgICAgICAgICAgICAgICAgICAgICAgICAgICAgICAgICAgICAgICAgICAgICAgICAg ICAgICAgICAgICAgICAgICANCiAgICAgICAgICAgICAgICAgICAgICAgICAgICAgICAgICAgICAgICAg ICAgICAgICAgICAgICAgICAgICAgICAgICAgICAgIC AgICAgICAgICAgICAgICAgICAgICAgICAgICANCiAgICAgICAgICAgICAgICAgICAgICAgICAgICAgIC AgICAgICAgICAgICAgICAgICAgICAgICAgICAgICAgICAgICAgICAgICAgICAgICAgICAgICAgICAgIC AgICAgICAgICANCiAgICAgICAgICAgICAgICAgICAg ICAgICAgICAgICAgICAgICAgICAgICAgICAgICAgICAgICAgICAgICAgICAgICAgICAgICAgICAgICAg ICAgICAgICAgICAgICAgICAgICANCiAgICAgICAgICAgICAgICAgICAgICAgICAgICAgICAgICAgICAg ICAgICAgICAgICAgICAgICAgICAgICAgICAgICAgIC AgICAgICAgICAgICAgICAgICAgICAgICAgICAgICANCiAgICAgICAgICAgICAgICAgICAgICAgICAgIC AgICAgICAgICAgICAgICAgICAgICAgICAgICAgICAgICAgICAgICAgICAgICAgICAgICAgICAgICAgIC AgICAgICAgICAgICANCiAgICAgICAgICAgICAgICAg ICAgICAgICAgICAgICAgICAgICAgICAgICAgICAgICAgICAgICAgICAgICAgICAgICAgICAgICAgICAg ICAgICAgICAgICAgICAgICAgICAgICANCiAgICAgICAgICAgICAgICAgICAgICAgICAgICAgICAgICAg ICAgICAgICAgICAgICAgICAgICAgICAgICAgICAgIC AgICAgICAgICAgICAgICAgICAgICAgICAgICAgICAgICANCiAgICAgICAgICAgICAgICAgICAgICAgIC AgICAgICAgICAgICAgICAgICAgICAgICAgICAgICAgICAgICAgICAgICAgICAgICAgICAgICAgICAgIC AgICAgICAgICAgICAgICANCiAgICAgICAgICAgICAg ICAgICAgICAgICAgICAgICAgICAgICAgICAgICAgICAgICAgICAgICAgICAgICAgICAgICAgICAgICAg ICAgICAgICAgICAgICAgICAgICAgICAgICANCjw/cTDvX7whnEDklxF3V8qpRx1TXj7DTL6ml1UiGKVr ENorbnDgXlvMLpLmDMImKbfHGvf9DEjtMZ6EbKDyW6 VkZ6CkPNsdKU6WIWLuABKbnPQxJTTtUKDvEdD4MTBfQXnyUK1BoZLoGEpkQLWmOMZxKpIiTDQtNE9UJI EvE436zuFgVh2CXn8ZGhRbGQ8plj2BUfAgPAHvZrjBMqm6IRulDP4RqPPdL9FybFKka3bLTuErF3NRQZ PiKEJcYe1BDFUvCuWoQKAhVHwrKN6oHGEjPYHPuKps mnJ1BI3ZYZ8oieOcUI2EGsFsUy8sDg7NRrPsI9BtC8EqDSEyXSTUYYjyJN9ROQXdQQT5UJHtCyTlXQDQ RwSgH24dAI5UY4Bcb06jRrI1ANWmNrViCUlgMQ96rZqiefGixMBqcHgkWM8TZs6+DQplbmRvYmoNCnhy TLNOUkAuAgVHWpEoCLFkHOFgDTYzRvV1LbRwQn1BZW MzVNFwEHEjVcEjBAYpPSXiXBkfMWHnOUA2NZVeJSIkWHFeZB5CSzUdOJFzRSk9GYHlJWBwZFYbiz8BJO QaHABkAZQ5ABDzORNvHFJbPAqmDBBeGJUnCUB6OCVrZNNqIF6HIcDnMPAnNXWcLUchLWKwFPGdtc1OSA TxIRHlMTYsEqJaDEKmPTArAJbhUXMqHCR8GpKfNSIh ZJNcOH1AMiMbOSQgASRrTABnWNJsOSRvrk2JSGYiTNGwYGL8NcGmQYSwHCEnALulNMCrVJY1THc9DBFs SYHaKY8FKbGjSOIrAZZ4VuQwPMJtSXVtqr3CJFGgKFEbBfofFJGbRWHqMRKoGIxaKSXcPGN0NVC6HWGy UVYiRN0IQoRhOLOfAFK1CYVrKXHoEBPnhu3TXOYmSW OaNjB6JYGrJOYiIAHcMZpfSINeQQUmKlOuECDoDTEjIH2MZcEwTCCzENA6WEKvPWObDCZjqf3IMDXnNY JcYdZ9BXQoKPPzTLTzECdzQAXoBWSkVtJeQRUtNRYzME1SRwJrRLSnMCC9KxKzLAYyYMBlxe1LKSBqQZ FmZsh8VMXsAOHvLRRwWBcwYMLwAKD3BPNyOKZyBXQi KF8DTaBbJIUcGCZvOiHzTKHqSSVvyi7TQKWbSKPyXFKxUFZxNMHuFHAfOFlqQMIkMQM3YbD8NKHwMIAb BG2SYnHbRAXlCES7HRRaZMXjRMQqvp2USRAvUYEcXpX5SzSbMAVoBQSjBXckLEFhPHD0XLAyOYOiDLNi PP2PFoSdIJGmYFP6IochLKWrOPGtck4GNWQyQDGhBl J4XKGsYJXtNXRlDToeGVKuLVD5MMw7PWZyBDUoKQ4UVyPjKRYtCTioNlYrPTOfKNIcak6UtMOcvDhzun 7JEBqADr9AdHuaSYY9ANysTc8etPHnEbJwLITIHv7IslXrHJJdKJAPVPukVKLpMTuzMzJ1YTDuCYZzRi VfZ7TiZoFaDQW9SRIuTsYyTPS6VjJ5RNHdXqD5XDU3 YKXjSxYvHSR2ZQA5RTk9FLJnFhL6QUH+SC6cXBj+El6Nb2OqmnR1hmZtNIwcHVEuVc3TRWCOL7HGNq== ID Date Data Source [id number] 04/27/2021 09:53:00 PM EDT [facility] Name Value Range Interpretation Code Description Data Sheila rce(s) Supporting Document(s) SARS coronavirus 2 RNA [Presence] in Res piratory specimen by RUSTY with probe detection NEGATIVE [facility] This lab was ordered by [facility] a nd reported by [facility]. ID Date Data Source [id number] 04/22/2021 11:35:00 AM EDT [facility] Name Value Range Interpretation Code Description Data Sheila rce(s) Supporting Document(s) SARS-CoV-2 (COVID-19) RNA [Presence] in Respiratory specimen by RUSTY with probe detection Not Detected [facility] This lab was ordered by [facility] and reported by [employer] ID Date Data Source URINE CULTURE 04/08/2021 12:00:00 AM EDT eCW1 ([facility]) Name Value Range Interpretation Code Description Data Sheila rce(s) Supporting Document(s) URINE CULTURE eCW1 ([facility]) ID Date Data Source Basic Metabolic Profile (BMP) 04/08/2021 12:00:00 AM EDT eCW 1 ([facility]) Name Value Range Interpretation Code Description Data Sheila rce(s) Supporting Document(s) 20 7-18 BLOOD UREA NITROGEN eCW1 ([facility]) 51.9 >42 GLOMERULAR FILTRATION RATE eCW 1 ([facility]) 1.41 0.70-1.30 CREATININE FOR GFR eCW1 ([facility]) 102 70-100 GLUCOSE, FASTING eCW1 ([facility]) 140 136-145 SODIUM LEVEL eCW1 ([facility]) 110 98-107 CHLORIDE LEVEL eCW1 ([facility]) 4.6 3.5-5.1 POTASSIUM SERUM eCW1 ([facility]) 25 21-32 CARBON DIOXIDE LEVEL eCW1 ([facility]) 9.0 8.8-10.2 CALCIUM LEVEL eCW1 ([facility]) ID Date Data Source CBC - Complete Blood Count 04/08/2021 12:00:00 AM EDT eCW1 ( [facility]) Name Value Range Interpretation Code Description Data Sheila rce(s) Supporting Document(s) 9.6 4.0-10.0 WHITE BLOOD COUNT eCW1 ([facility]) 5.02 4.30-6.10 RED BLOOD COUNT eCW1 ([facility]) 16.0 13.5-17.5 HEMOGLOBIN eCW1 ([facility]) 49.2 42.0-52.0 HEMATOCRIT eCW1 ([facility]) 32.5 32.0-36.5 MEAN CORPUSCULAR HGB CONC eCW1 ([facility]) 31.9 27.0-33.0 MEAN CORPUSCULAR HEMOGLOB IN eCW1 ([facility]) 98.0 80.0-96.0 MEAN CORPUSCULAR VOLUME e CW1 ([facility]) 155 150-450 PLATELET COUNT, AUTOMATED eCW1 ([facility]) 13.0 11.5-14.5 RED CELL DISTRIBUTION WID TH eCW1 ([facility]) ID Date Data Source [id number] 04/06/2021 08:32:46 AM EDT [facility] Name Value Range Interpretation Code Description Data Sheila rce(s) Supporting Document(s) &PDF [facility] BLLYNq1oFnGTYvDk61/AKQnyKXSpc8ZqKVqgEIl6MBnrBFNwS0NrvYtlTI0RCWGIQ69qRoUTJe4ISSFJ 0b3 [file] WfLH3AIe6VKzZ2ZVB6nZMuYc3ZJjo5JyPUDeCdAA8DHPk= ID Date Data Source [id number] 04/06/2021 07:57:10 AM EDT [facility] Name Value Range Interpretation Code Description Data Sheila rce(s) Supporting Document(s) EKG [facility] KUYCQp6iRdQOIfHbt5FsQuRuJCTpEL3usdv0U0J6fYCmE9TcoOFnd3drO3NfM8BbWZHgXVGWEN8XlQSo jb2 [file] /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/+9ffhb///fM/38L/+1///86//yH//rP709//zH/+tf/9f/+Nu6eonz3bT/+tO+//e//c//mvP5 x9bfP//1zylO//v33//87/2x11JzI/r28JFt4bwxJ+ v8j8Y9nWF2FMgj1KZMIh5Lir5Rp8neCKtGjRsRgKJiuhZSgb3plTzUrhI9l8q4TdmVjU3Q6FahrnO7RT 9VR7weartkWE4n3vCbsg5pxFjNcnN1n8s2FrfYkY6z3owwsv64kI5AX2y2jmnaPU6d8hNwrc4dqQqNed 31z2e6Rqy1hC5L0DatylX6OF5TKFuFinyhPVAgCeBd ov0jgDwLvm69p0j5Aqz5lN2U1IulzmiGDj+eXRIrGsJiyw7gcCkFdd77a7o3Glh2cC7K5TewjkP9JR3G QbkPjqWxXsK9TmTzxffP8jQ9FE82niyK0F2Ekkmo4rnbW1fg0+Edg5w9XG9rQtiUJ4/piqKOeC6ErcQ4 V9Tg9OQD8rEkctQ3FyqHtLbdsuEyFn9HyX9l7+vFny 1x36w5gkUqi30j54KBcw0u9hcB5dIueAahuyrpmrQyY+9t7k8Tlv2x51L8Tw89IO716/z8/DY//HF+fn 6dH/48Pz+/zw9/oJ+fX+aIL8CNd8/0wx/p5+dX+iAH5JLMViMR/kfBNPkGf7uJH/WdeEzj3fsGdKPr32 Kashif/Irm9zu6vbLmYrh057URUD68SbQCbp1M17MwD6l dtItsR+/oLnN9O6lShGH4Rz8MFnv5oFxIO2A+/FPjA6K/TnaBzjAjmoDc4Xw/uneNZcth896DQvVVrF5 RadvsqbdDgzyJgjnwd77J1oDsW25RfZMRu8+i9FpsR+kihh50P/hFgAk3BgqGwkb1sI0HE9L+/FejO6L /yqaRonShhrBvpkoGj7M3RalCc/G6MbY/O/nWqn637 85XamnuwinMtuqLlubbL64W4sPoj29VdQNJz4+jdGpsR+ayjzL1J2bX2ZoxV8XiVsDG2/D5VcQe5uauO /ld80hLus14+OLADn21MFZWx97dGpUV0x+/Byjo2M/vc0M4cEhD1xk3AdGq2V4s+gD9tI9OHmm7QtbZk vxeYxOj/79QDa4h514CxPoYo+vj6A3nO/fx+j82I/3 Y3R/7Mf/IIaI8vRNZW7m+/GBjE6Q/NcUIhoPldeckkWyX29B4KJiF7/A3FlOtcgkuFuxfm5j3Brfdn/U 6A+1H3+o0R9qP/5Qoz/UfvyhRn+o/vsJde9E+/UGDv5z5vRKTsuG7uzazuBG4b9/6JiLaS9/qNEfaj/+ UKM/0W55uOL/bD36K99+FTxhlwy7uurgUnR7I+13fU GYrM4XvDHF0m0xo0LAsl79cbFO0tkXGQO0ngIDGn7mAv9w0hab1avxjT6/8FrMrT9/qNEfaj/+UKM/1H 78oUZ/mV35Y51+YKnskxs4ntvrTaI7C+4US0e7p2pWH0WyQ9Slr3tEP6a//lCjP9R+/JZJv4q4+ESTHELA/l [file] QoUmSKQYB2Yav3KcDTLvYZDHQq3+QzP1NQZ7lBVwBmp2GTg9MGxkNBDUBz== ID Date Data Source [id number] 04/01/2021 10:30:00 AM EDT [facility] Name Value Range Interpretation Code Description Data Sheila rce(s) Supporting Document(s) SARS-CoV-2 (COVID-19) RNA [Presence] in Respiratory specimen by RUSTY with probe detection Not Detected [facility] This lab was ordered by [facility] and reported by [employer]. ID Date Data Source PSA MONITOR (HX PROSTATE CA/ABNORMAL PSA) 04/01/2021 12:00:0 0 AM EDT eCW1 (Formerly [facility]) Name Value Range Interpretation Code Description Data Sheila rce(s) Supporting Document(s) 7.81 < 4.00 PROSTATIC SPECIFIC AG MON ITOR eCW1 (Formerly [facility]) ID Date Data Source [id number] 03/30/2021 06:09:55 [facility] Name Date of Age Gend*PT [id number] Angela Hughesd 1945 75 years M ---PT Location Admission Date/Time Visit ID Attending Provider --- --- --- --- EPI ID CSN Admitting Provider [id number] ---Addended by: NAZIA BROUSSARD on: 03/30/2021 06:09 PM Modules accepted: Orders Name Value Range Interpretation Code Description Data Sheila rce(s) Supporting Document(s) ID Date Data Source [id number] 02/10/2021 09:55:00 AM EDT [facility] Name Value Range Interpretation Code Description Data Sheila rce(s) Supporting Document(s) SARS-CoV-2 (COVID-19) RNA [Presence] in Respiratory specimen by RUSTY with probe detection Not Detected [facility] This lab was ordered by [facility] and reported by [employer] ID Date Data Source [id number] 04/27/2020 02:42:00 PM EDT [facility] Name Value Range Interpretation Code Description Data Sheila rce(s) Supporting Document(s) URINE COLOR. YELLOW [facility] URINE APPEARANCE CLEAR [facility] SPECIFIC GRAVITY,URINE 1.020 1.001-1.035 [facility] URINE LEUKOCYTE ESTERASE 2+(MODERATE) NEGATIVE H [facility] URINE NITRATE NEGATIVE NEGATIVE [facility] PH,URINE 5.5 5.0-9.0 [facility] URINE PROTEIN NEGATIVE mg/dL NEGATIVE [facility] URINE GLUCOSE (UA) NEGATIVE mg/dL NEGATIVE [facility] URINE KETONE NEGATIVE mg/dL NEGATIVE [facility] URINE UROBILINOGEN NORMAL(0.2-1) mg/dL 0-1 [facility] URINE BILIRUBIN NEGATIVE NEGATIVE [facility] URINE BLOOD NEGATIVE NEGATIVE [facility] ID Date Data Source [id number] 04/27/2020 02:42:00 PM EDT [facility] Name Value Range Interpretation Code Description Data Sheila rce(s) Supporting Document(s) URINE RBC 0-2 /hpf 0-3 [facility] URINE WBC 5-10 /hpf 0-5 H [facility] URINE EPITHELIAL CELLS 1+ /hpf 0 [facility] URINE BACTERIA TRACE NONE SEEN H [facility] ID Date Data Source [id number] 04/27/2020 04:11:03 AM EDT eCW1 ([facility] [place]) Name Value Range Interpretation Code Description Data Sheila rce(s) Supporting Document(s) YELLOW URINE COLOR. eCW1 ([facility]) 2+(MODERATE) URINE LEUKOCYTE ESTERAS E eCW1 ([facility]) CLEAR URINE APPEARANCE eCW1 ([facility]) NEGATIVE URINE NITRATE eCW1 ([facility]) 1.020 SPECIFIC GRAVITY,URINE eCW1 ([facility]) NEGATIVE URINE KETONE eCW1 ([facility]) 5.5 PH,URINE eCW1 ([facility]) NEGATIVE URINE GLUCOSE (UA) eCW1 ([facility]) NEGATIVE URINE PROTEIN eCW1 ([facility]) NEGATIVE URINE BLOOD eCW1 ([facility]) NORMAL(0.2-1) URINE UROBILINOGEN eCW 1 ([facility]) NEGATIVE URINE BILIRUBIN eCW1 ([facility]) Procedure Social History Code Duration Value Status Description Data Source(s ) Smoking 05/04/2021 12:00:00 AM EDT Former Smoker completed Former Smoker eCW1 ([facility]ly [facility]) Alcohol intake 05/04/2021 12:00:00 AM EDT Current drinker of al cohol (finding) completed Current drinker of alcohol (finding) [facility] Smoking 04/18/2021 12:00:00 AM EDT Former Smoker completed Former Smoker eCW1 ([facility]ly [facility]) Smoking 04/18/2021 12:00:00 AM EDT Former Smoker completed Former Smoker eCW1 ([facility]ly [facility]) Smoking 04/18/2021 12:00:00 AM EDT Former Smoker completed Former Smoker eCW1 (Formerly [facility]) Smoking 04/18/2021 12:00:00 AM EDT Former Smoker completed Former Smoker eCW1 (Formerly [facility]) Smoking 04/18/2021 12:00:00 AM EDT Former Smoker completed Former Smoker eCW1 (Formerly [facility]) Smoking 04/08/2021 12:00:00 AM EDT Former Smoker completed Former Smoker eCW1 (Formerly [facility]) Alcohol intake 04/06/2021 12:00:00 AM EDT Current drinker of al cohol (finding) completed Current drinker of alcohol (finding) [facility] Smoking 03/30/2021 07:05:36 AM EDT Never smoked tobacco (findi ng) completed Never smoked tobacco (finding) [facility] (Julian Villanueva MD [facility]) Smoking 03/30/2021 07:04:56 AM EDT Never smoked tobacco (findi ng) completed Never smoked tobacco (finding) [facility] (Julian Villanueva MD [facility]) Alcohol intake 03/30/2021 12:00:00 AM EDT Current drinker of al cohol (finding) completed Current drinker of alcohol (finding) [facility] Smoking 02/23/2021 12:00:00 AM EDT Former Smoker completed Former Smoker eCW1 (Formerly [facility]) Smoking 02/23/2021 12:00:00 AM EDT Former Smoker completed Former Smoker eCW1 (Formerly [facility]) Smoking 02/23/2021 12:00:00 AM EDT Former Smoker completed Former Smoker eCW1 (Formerly [facility]) Smoking 02/23/2021 12:00:00 AM EDT Former Smoker completed Former Smoker eCW1 (Formerly [facility]) Smoking 02/23/2021 12:00:00 AM EDT Former Smoker completed Former Smoker eCW1 (Formerly [facility]) Tobacco use and exposure 01/19/2021 12:00:00 AM EDT Never used co mpleted Never used [facility] Smoking 01/19/2021 12:00:00 AM EDT Former smoker completed Former smoker [facility] Alcohol intake 01/19/2021 12:00:00 AM EDT Current drinker of al cohol (finding) completed Current drinker of alcohol (finding) [facility] Smoking 01/13/2021 12:00:00 AM EDT Former Smoker completed Former Smoker eCW1 (Formerly [facility]) Smoking 01/13/2021 12:00:00 AM EDT Former Smoker completed Former Smoker eCW1 (Formerly [facility]) Smoking 01/13/2021 12:00:00 AM EDT Former Smoker completed Former Smoker eCW1 (Formerly [facility]) Smoking 01/13/2021 12:00:00 AM EDT Former Smoker completed Former Smoker eCW1 (Formerly [facility]) Smoking 12/28/2020 12:00:00 AM EDT Former Smoker completed Former Smoker eCW1 (Formerly [facility]) Smoking 12/28/2020 12:00:00 AM EDT Former Smoker completed Former Smoker eCW1 (Formerly [facility]) Smoking 12/06/2020 12:00:00 AM EDT Former Smoker completed Former Smoker eCW1 (Formerly [facility]) Smoking 11/30/2020 12:00:00 AM EDT Former Smoker completed Former Smoker eCW1 (Formerly [facility]) Smoking 10/25/2020 12:00:00 AM EST Former Smoker completed Former Smoker eCW1 (Formerly [facility]) Smoking 10/25/2020 12:00:00 AM EST Former Smoker completed Former Smoker eCW1 (Formerly [facility]) Smoking 10/25/2020 12:00:00 AM EST Former Smoker completed Former Smoker eCW1 (Formerly [facility]) Smoking 08/25/2020 12:00:00 AM EST Former Smoker completed Former Smoker eCW1 (Formerly [facility]) Smoking 07/26/2020 12:00:00 AM EST Former Smoker completed Former Smoker eCW1 (Formerly [facility]) Smoking 07/26/2020 12:00:00 AM EST Former Smoker completed Former Smoker eCW1 (Formerly [facility]) Smoking 07/26/2020 12:00:00 AM EST Former Smoker completed Former Smoker eCW1 (Formerly [facility]) Vital Signs ID Date Data Source UNK Name Value Range Interpretation Code Description Data Source(s) Systolic blood pressure 140 mm[Hg] 140 mm[Hg] [facility] Diastolic blood pressure 80 mm[Hg] 80 mm[Hg] [facility] Body weight 90.266 kg 90.266 kg [facility] Heart rate 59 /min 59 /min [facility] Body height 172.7 cm 172.7 cm [facility] Body mass index (BMI) [Ratio] 30.26 kg/m2 30.26 kg/m2 [facility] Oxygen saturation in Arterial blood by Pulse oximetry 97 % 97 % [facility] Body weight 195 [lb_av] 195 [lb_av] eCW1 ([facility]) Body weight 88.45 kg 88.45 kg eCW1 ([facility]) Body height [in_i] W1 ([facility]) Body mass index (BMI) [Ratio] 29.65 kg/m2 29.65 kg/m2 [facility] (Formerly [facility]) Heart rate 60 /min 60 /min eCW1 ([facility]) Respiratory rate 18 /min 18 /min eCW1 ([facility]) Body temperature 96.5 [degF] 96.5 [degF] eCW1 ( Formerly [facility]) Systolic blood pressure 122 mm[Hg] 122 mm[Hg] e CW1 (Formerly [facility]) Diastolic blood pressure 58 mm[Hg] 58 mm[Hg] eCW1 (Formerly [facility]) Body weight 198.4 [lb_av] 198.4 [lb_av] eCW1 ([facility]) Body weight 89.99 kg 89.99 kg eCW1 ([facility]) Body height [in_i] eCW1 ([facility]) Body mass index (BMI) [Ratio] 30.16 kg/m2 30.16 kg/m2 eCW1 (Formerly [facility]) Heart rate /min eCW1 ([facility]) Respiratory rate 18 /min 18 /min eCW1 ([facility]) Body temperature 98.2 [degF] 98.2 [degF] eCW1 ( Formerly [facility]) Systolic blood pressure 129 mm[Hg] 129 mm[Hg] e CW1 (Formerly [facility]) Diastolic blood pressure 66 mm[Hg] 66 mm[Hg] eCW1 (Formerly [facility]) Body weight 196 [lb_av] 196 [lb_av] eCW1 ([facility]) Body weight 88.91 kg 88.91 kg eCW1 ([facility]) Body height [in_i] eCW1 ([facility]) Body mass index (BMI) [Ratio] 29.80 kg/m2 29.80 kg/m2 eCW1 (Formerly [facility]) Heart rate 51 /min 51 /min eCW1 ([facility]) Respiratory rate 17 /min 17 /min eCW1 ([facility]) Body temperature 95.8 [degF] 95.8 [degF] eCW1 ( Formerly [facility]) Systolic blood pressure 138 mm[Hg] 138 mm[Hg] e CW1 (Formerly [facility]) Diastolic blood pressure 84 mm[Hg] 84 mm[Hg] eCW1 (Formerly [facility]) Systolic blood pressure 150 mm[Hg] 150 mm[Hg] [facility] Diastolic blood pressure 83 mm[Hg] 83 mm[Hg] [facility] Heart rate 41 /min 41 /min [facility] Respiratory rate 16 /min 16 /min [facility] Oxygen saturation in Arterial blood by Pulse oximetry 94 % 94 % [facility] Body temperature 36.5 Ana 36.5 Ana [facility] Body height 172.7 cm 172.7 cm [facility] Body weight 88 kg 88 kg [facility] Body mass index (BMI) [Ratio] 29.50 kg/m2 29.50 kg/m2 [facility] Systolic blood pressure 132 mm[Hg] 132 mm[Hg] [facility] Diastolic blood pressure 80 mm[Hg] 80 mm[Hg] [facility] Heart rate 55 /min 55 /min [facility] Respiratory rate 18 /min 18 /min [facility] Body weight 90.266 kg 90.266 kg [facility] Body mass index (BMI) [Ratio] 30.26 kg/m2 30.26 kg/m2 [facility] Oxygen saturation in Arterial blood by Pulse oximetry 95 % 95 % [facility] Body weight 196 [lb_av] 196 [lb_av] W1 ([facility]) Body height [in_i] eCW1 ([facility]) Body mass index (BMI) [Ratio] 29.80 kg/m2 29.80 kg/m2 W1 (Formerly [facility]) Heart rate 60 /min 60 /min eCW1 ([facility]) Respiratory rate 18 /min 18 /min eCW1 ([facility]) Body temperature 96.7 [degF] 96.7 [degF] W1 ( Formerly [facility]) Systolic blood pressure 102 mm[Hg] 102 mm[Hg] e CW1 (Formerly [facility]) Diastolic blood pressure 62 mm[Hg] 62 mm[Hg] eCW1 (Formerly [facility]) Systolic blood pressure 138 mm[Hg] 138 mm[Hg] [facility] Diastolic blood pressure 68 mm[Hg] 68 mm[Hg] [facility] Heart rate 53 /min 53 /min [facility] Respiratory rate 16 /min 16 /min [facility] Body weight 90.447 kg 90.447 kg [facility] Oxygen saturation in Arterial blood by Pulse oximetry 96 % 96 % [facility] Body weight 197 [lb_av] 197 [lb_av] eCW1 ([facility]) Body height [in_i] eCW1 ([facility]) Body mass index (BMI) [Ratio] 29.95 kg/m2 29.95 kg/m2 W1 (Formerly [facility]) Heart rate 56 /min 56 /min eCW1 ([facility]) Respiratory rate 18 /min 18 /min eCW1 ([facility]) Body temperature 96.7 [degF] 96.7 [degF] eCW1 ( Formerly [facility]) Systolic blood pressure 132 mm[Hg] 132 mm[Hg] e CW1 (Formerly [facility]) Diastolic blood pressure 74 mm[Hg] 74 mm[Hg] eCW1 (Formerly [facility]) Body weight 198 [lb_av] 198 [lb_av] eCW1 ([facility]) Body height [in_i] eCW1 ([facility]) Body mass index (BMI) [Ratio] 30.10 kg/m2 30.10 kg/m2 eCW1 (Formerly [facility]) Heart rate 64 /min 64 /min eCW1 ([facility]) Respiratory rate 18 /min 18 /min eCW1 ([facility]) Body temperature 96.7 [degF] 96.7 [degF] eCW1 ( Formerly [facility]) Systolic blood pressure 155 mm[Hg] 155 mm[Hg] e CW1 (Formerly [facility]) Diastolic blood pressure 82 mm[Hg] 82 mm[Hg] eCW1 (Formerly [facility]) Respiratory rate 18 /min 18 /min eCW1 ([facility]) Body temperature 97.1 [degF] 97.1 [degF] eCW1 ( Formerly [facility]) Systolic blood pressure 144 mm[Hg] 144 mm[Hg] e CW1 (Formerly [facility]) Diastolic blood pressure 81 mm[Hg] 81 mm[Hg] eCW1 (Formerly [facility]) Body weight 198 [lb_av] 198 [lb_av] eCW1 ([facility]) Body height [in_i] eCW1 ([facility]) Body mass index (BMI) [Ratio] 30.10 kg/m2 30.10 kg/m2 eCW1 (Formerly [facility]) Heart rate 51 /min 51 /min eCW1 ([facility]) Body weight 201.2 [lb_av] 201.2 [lb_av] eCW1 ([facility]) Body height [in_i] eCW1 ([facility]) Body mass index (BMI) [Ratio] 30.59 kg/m2 30.59 kg/m2 eCW1 (Formerly [facility]) Heart rate 52 /min 52 /min eCW1 ([facility]) Respiratory rate 18 /min 18 /min eCW1 ([facility]) Body temperature 97.3 [degF] 97.3 [degF] eCW1 ( [facility]ly [facility]) Systolic blood pressure 158 mm[Hg] 158 mm[Hg] e CW1 (Formerly [facility]) Diastolic blood pressure 82 mm[Hg] 82 mm[Hg] eCW1 (Formerly [facility]) Body weight 200.6 [lb_av] 200.6 [lb_av] eCW1 ([facility]) Body height [in_i] eCW1 ([facility]) Body mass index (BMI) [Ratio] 30.50 kg/m2 30.50 kg/m2 eCW1 (Formerly [facility]) Heart rate 52 /min 52 /min eCW1 ([facility]) Respiratory rate 18 /min 18 /min eCW1 ([facility]) Body temperature 97.6 [degF] 97.6 [degF] eCW1 ( [facility]ly [facility]) Systolic blood pressure 138 mm[Hg] 138 mm[Hg] e CW1 (Formerly [facility]) Diastolic blood pressure 72 mm[Hg] 72 mm[Hg] eCW1 (Formerly [facility]) Body weight 197 [lb_av] 197 [lb_av] eCW1 ([facility]) Body height [in_i] eCW1 ([facility]) Body mass index (BMI) [Ratio] 29.95 kg/m2 29.95 kg/m2 eCW1 (Formerly [facility]) Heart rate 51 /min 51 /min eCW1 ([facility]) Respiratory rate 18 /min 18 /min eCW1 ([facility]) Body temperature 97.4 [degF] 97.4 [degF] eCW1 ( [facility]ly [facility]) Systolic blood pressure 140 mm[Hg] 140 mm[Hg] e CW1 (Formerly [facility]) Diastolic blood pressure 66 mm[Hg] 66 mm[Hg] eCW1 (Formerly [facility]) Heart rate 55 /min 55 /min eCW1 ([facility]) Body weight 192 [lb_av] 192 [lb_av] eCW1 ([facility]) Respiratory rate 18 /min 18 /min eCW1 ([facility]) Body mass index (BMI) [Ratio] 29.19 kg/m2 29.19 kg/m2 eCW1 (Formerly [facility]) Body temperature 96.3 [degF] 96.3 [degF] eCW1 ( Formerly [facility]) Systolic blood pressure 148 mm[Hg] 148 mm[Hg] e CW1 (Formerly [facility]) Diastolic blood pressure 84 mm[Hg] 84 mm[Hg] eCW1 (Formerly [facility]) Body height [in_i] eCW1 ([facility]) Patient Treatment Plan of Care Planned Activity Planned Date Details Description Data Source (s) Lisinopril 20 MG Oral Tablet 04/08/2021 12:00:00 AM EDT [facility] normal saline flush 0.9 % injection 3 mL 04/06/2021 09:00:00 AM EDT [facility] normal saline flush 0.9 % injection 3 mL 04/06/2021 07:00:00 AM EDT [facility] normal saline flush 0.9 % injection 3 mL 04/06/2021 07:00:00 AM EDT [facility] clopidogrel 75 MG Oral Tablet 03/30/2021 12:00:00 AM EDT [facility] aminophylline injection 75 mg 03/23/2021 11:00:00 AM EDT [facility] Sulfamethoxazole 800 MG / Trimethoprim 160 MG Oral Tab let [Bactrim] 11/08/2020 12:00:00 AM EDT eCW1 ([facility]) Sodium Phosphate, Dibasic 59.3 MG/ML / S odium Phosphate, Monobasic 161 MG/ML Enema 11/08/2020 12:00:00 AM EDT eCW1 (Formerly [facility]) Hydroxyzine Hydrochloride 10 MG Oral Tablet 08/25/2020 12:00:00 AM EST eCW1 (Formerly [facility]) Lisinopril 20 MG Oral Tablet [facility] celecoxib 50 MG Oral Capsule [facility]
[2021-06-07] MEDS ORDERED: BUPIVACAINE HCL 0.25% 30ML VIAL As Ordered ONE (14:20)
[2021-06-07] MEDS ORDERED: LIDOCAINE 1% SDV 30ML VIAL As Ordered ONE (14:20)
[2021-06-07] MEDS ORDERED: ACETAMINOPHEN TAB 650MG DOSE (2X325MG) PO PRN (14:30)
[2021-06-07] MEDS ORDERED: ONDANSETRON 4MG/2ML VIAL IV PRN ×2 (14:30→21:05)
[2021-06-07] MEDS ORDERED: PERCOCET 5MG/325MG TAB PO PRN ×2 (14:30)
[2021-06-07] MEDS ORDERED: dexameTHASONE 4 MG/ML 1ML VIAL (J1100 PER 1MG) As Ordered ONE (14:46)
[2021-06-07] MEDS ORDERED: ONDANSETRON 4MG/2ML VIAL As Ordered ONE (14:46)
[2021-06-07] MEDS ORDERED: propofoL 200 MG/20 ML VIAL As Ordered ONE (14:46)
[2021-06-07] MEDS ORDERED: LIDOCAINE 2% 100MG/5ML SDV (FOR ANES.) As Ordered ONE (14:46)
[2021-06-07] MEDS ORDERED: ROCURONIUM BROMIDE 50 MG/5 ML VIAL As Ordered ONE ×2 (14:46→17:48)
[2021-06-07] MEDS ORDERED: MIDAZOLAM INJ 2MG/2ML VIAL (J2250 PER 1MG) As Ordered ONE (14:46)
[2021-06-07] MEDS ORDERED: METOCLOPRAMIDE INJ 10MG/2ML VIAL (J2765 PER 1) As Ordered ONE (14:46)
[2021-06-07] MEDS ORDERED: fentaNYL 250 MCG/5 ML INJECTION (J3010) As Ordered ONE (14:46)
[2021-06-07] MEDS ORDERED: SUGAMMADEX SODIUM 500 MG/5 ML VIAL (BRIDION) As Ordered ONE (14:46)
[2021-06-07] MEDS ORDERED: NS 1,000 ML IV SCH (15:00)
[2021-06-07] MEDS ORDERED: PHENYLephrine 500MCG 5ML (100MCG/ML) SYRINGE As Ordered ONE (15:06)
[2021-06-07] MEDS ORDERED: LABETALOL 100MG/20ML VIAL As Ordered ONE (15:26)
[2021-06-07] MEDS ORDERED: fentaNYL 100 MCG/2 ML INJECTION (J3010) As Ordered ONE ×2 (15:48→20:58)
[2021-06-07] MEDS ORDERED: DESFLURANE 240 ML INHALANT As Ordered ONE (18:29)
[2021-06-07] MEDS: fentaNYL 100 MCG/2 ML INJECTION (J3010) IV PRN ×4 (20:59→21:49)
[2021-06-07] MEDS ORDERED: SIMVASTATIN 40 MG TAB PO SCH (21:00)
--- NOTE | 2021-06-07 21:01 | ROOPDOC ---
[facility] Report Of Operation Report of Operation DATE OF PROCEDURE: 06/07/21 PREPROCEDURE DIAGNOSIS: Prostate cancer. POSTPROCEDURE DIAGNOSIS: Prostate cancer. PROCEDURE: Robotic-assisted laparoscopic radical prostatectomy with bilateral pelvic lymph node dissection. SURGEON: José Quiñonez MD [employer] OFFICER: Miranda Del Rio NP ANESTHESIA: General. OPERATIVE INDICATIONS: This is a 76 year old male with high risk clinical T1c Jayjay 4+4 prostate cancer. After a discussion of the options for treatment, he elected to undergo the above procedure. DESCRIPTION OF PROCEDURE: The patient was brought to the operating room and general anesthesia was induced. Prophylactic antibiotics were infused. He was then placed in the dorsal lithotomy position and prepped and draped in the usual sterile fashion. At this point, a Gomez catheter was inserted into the bladder and the balloon was filled with 10 mL of sterile water. We then made a midline incision just above the umbilicus for an 8 mm port. A Veress needle was utilized to achieve pneumoperitoneum. Next, an 8 mm port was inserted into the incision and subsequently a camera was inserted. There were no injuries from the Veress needle or initial trocar placement. At this point, we placed the remaining ports, including a 12 mm assistant center director port and then three robotic ports in the usual configuration. Once all the ports were placed, the robot was docked. Lysis of adhesions between the sigmoid colon and abdominal wall was then performed. The bladder was then released from the anterior abdominal wall using electrocautery. Once the bladder was dropped, the fat overlying the prostate was cleared using electrocautery. The superficial dorsal vein was controlled with electrocautery. The endopelvic fascia was opened on both sides and the dorsal venous complex was cleared. Next, a #0 Vicryl [id number] stitch was placed around the dorsal venous complex. Once that was done, the bladder was opened and dissected away from the prostate. At this point, the prostate was lifted up. The vasa deferentia were identified in the midline. They were then ligated and transected. The seminal vesicles were also dissected off bilaterally. The rectum was safely mobilized away from the prostate. Bilateral prostatic pedicles were taken using the Harmonic scalpel. The pedicles were carried towards the apex. After taking care of the pedicles and mobilizing the rectum off the prostate below, the prostate was only connected by the urethra. At this point, the dorsal venous complex was transected with electrocautery. The urethra was then opened and the catheter was withdrawn and the posterior urethra was transected, thus freeing the prostate. At this point, we checked for hemostasis and it did appear very good. Next, we performed bilateral pelvic lymph node dissection. This was done in a standard fashion. The limits of dissection were the iliac vein proximally, the obturator nerve distally, the pelvic sidewall laterally, and the bladder medially. All lymphatic tissue within these limits was removed. I performed the same procedure on both the right and left sides. Hemostasis was then obtained with bipolar electrocautery. The lymphatic packets were then placed in separate Endo Catch bags for future retrieval. Once hemostasis was confirmed, I then moved on to perform the vesicourethral anastomosis. This was performed with a Quill stitch in a running fashion. Once this was done, the final #20-Maltese Gomez catheter was placed. The balloon was filled with 15 mL of sterile water. Upon completion of the vesicourethral anastomosis, it was tested by filling the bladder with sterile saline water. The anastomosis appeared to be watertight. At this point, the prostate and seminal vesicles were placed in an Endo Catch bag for future retrieval. Next, a Yury- Philippe drain was brought in through the left robotic port skin site and the drain was positioned anterior to the bladder. The robot was then undocked. A Aries-Monroe fascial closure device was utilized to place a #0 Vicryl suture between the fascia of the 12 mm assistant center director port. The drain was secured to the skin with #2-0 Ethilon suture. The prostate, as well as the lymphatic packets were then extracted from the camera port site after the skin was extended. The fascia in this incision was then closed with a running #0 Vicryl stitch. I then looked back in the abdomen and no intraabdominal contents were caught in the extraction site fascial closure. Next, all the remaining ports were removed and there did not appear to be any bleeding from any of the port sites. The previously placed #0 Vicryl free ties through the assistant center director port were then tied down and all incisions were irrigated. All of the incisions were then closed with running subcuticular #4-0 Monocryl sutures. Local anesthesia was applied. Dermabond was then applied to the incisions. This marked the con clusion of the procedure. The patient was then taken out of the dorsal lithotomy position, awakened from anesthesia and transported to the recovery room in stable condition. ESTIMATED BLOOD LOSS: 300 mL. COMPLICATIONS: None. SPECIMENS: Prostate and seminal vesicles, right pelvic lymph nodes, left pelvic lymph nodes. PLAN: The patient will be admitted to the hospital postoperatively, and he will likely be discharged home within the next 1-2 days. JOSÉ QUIÑONEZ MD Jun 07, 2021 14:36
[2021-06-07] MEDS ORDERED: HYDROMORPHONE HCL 0.5 MG/ 0.5 ML SYRINGE (J1170 PER 1) IV PRN (21:05)
[2021-06-07] MEDS ORDERED: LR 1,000 ML IV SCH (21:05)
[2021-06-07] MEDS ORDERED: oxyCODONE 5MG TAB PO PRN (21:05)
[2021-06-07] MEDS ORDERED: LABETALOL 100MG/20ML VIAL IV PRN (21:15)
[2021-06-07 21:53] LABS: CALCIUM LEVEL 9.3 MG/DL (8.8-10.2); CREATININE FOR GFR 1.8 MG/DL (0.70-1.30); GLOMERULAR FILTRATION RATE 39.1 (>42); POTASSIUM SERUM 5.3 MEQ/L (3.5-5.1)
[2021-06-07 22:01] LABS: HEMATOCRIT 46.2 % (42.0-52.0); HEMOGLOBIN 15.1 g/dl (13.5-17.5); MEAN CORPUSCULAR HEMOGLOBIN 31.9 pg (27.0-33.0); MEAN CORPUSCULAR HGB CONC 32.7 g/dl (32.0-36.5); MEAN CORPUSCULAR VOLUME 97.5 fl (80.0-96.0); PLATELET COUNT, AUTOMATED 160 10^3/uL (150-450); RED BLOOD COUNT 4.74 10^6/uL (4.30-6.10); WHITE BLOOD COUNT 16.1 10^3/uL (4.0-10.0)
[2021-06-07 22:20] VITALS: BP 109/62
[2021-06-07 22:43] VITALS: BP 109/62
[2021-06-07] MEDS: DOCUSATE SODIUM 100MG CAPSULE PO SCH (22:43)
[2021-06-07 22:50] VITALS: BP 110/65
[2021-06-07] MEDS: HEPARIN SOD (PORCINE) 5000UNITS/ML 1ML VIAL/SYRINGE SC SCH (22:57)
[2021-06-07] MEDS: ceFAZolin SOD 1 GM in D5W MINI-BAG PLUS 50 ML IV SCH (22:57)
[2021-06-07 23:20] VITALS: BP 114/70
[2021-06-08] VITALS (7 sets, daily range): BP systolic 107–128; BP diastolic 50–80
[2021-06-08] MEDS: ceFAZolin SOD 1 GM in D5W MINI-BAG PLUS 50 ML IV SCH (05:33)
[2021-06-08] MEDS: HEPARIN SOD (PORCINE) 5000UNITS/ML 1ML VIAL/SYRINGE SC SCH ×2 (05:34→13:59)
[2021-06-08 06:37] LABS: HEMATOCRIT 41.8 % (42.0-52.0); HEMOGLOBIN 13.6 g/dl (13.5-17.5); MEAN CORPUSCULAR HEMOGLOBIN 31.7 pg (27.0-33.0); MEAN CORPUSCULAR HGB CONC 32.5 g/dl (32.0-36.5); MEAN CORPUSCULAR VOLUME 97.4 fl (80.0-96.0); PLATELET COUNT, AUTOMATED 148 10^3/uL (150-450); RED BLOOD COUNT 4.29 10^6/uL (4.30-6.10); WHITE BLOOD COUNT 14.2 10^3/uL (4.0-10.0)
[2021-06-08 07:04] LABS: CALCIUM LEVEL 8.7 MG/DL (8.8-10.2); CREATININE FOR GFR 1.63 MG/DL (0.70-1.30); GLOMERULAR FILTRATION RATE 43.9 (>42)
--- NOTE | 2021-06-08 07:53 | IPNPDOC ---
Subjective Review oF Systems Chief Complaint The patient is a 76-year-old male admitted with a reason for visit of Prostate Cancer. Events since Last Encounter No acute events o/n. Good pain control. No n/v. Has not ambulated yet. No f/c/ns. Objective Physical Examination General Exam: Alert, Cooperative, No Acute Distress ABDOMEN EXAM: Soft, Tenderness (minimal), Other (incisions clean/dry/intact; DEIDRA w/ serosanguinous output) Skin Exam: Nl turgor and temperature Neuro Exam: Normal Speech Psych Exam: Mental status NL, Mood NL Other physical findings catheter draining clear yellow urine Vital Signs/I&O Vital Signs Date Time Temp Pulse Resp B/P (MAP) Pulse Ox O2 Delivery O2 Flow Rate FiO2 06/08/21 06:00 98.5 59 18 107/50 (69) 96 06/08/21 03:20 Nasal Cannula 2.0 I&O- Last 24 Hours up to 6 AM 06/08/21 06:00 Intake Total 2650 ml Output Total 720 ml Balance 1930 ml Laboratory Data Labs 24H Laboratory Tests 2 06/07/21 21:16: Nucleated Red Blood Cells % (auto) 0.1H, Anion Gap 7L, Glomerular Filtration R ate 39.1L, Calcium Level 9.3 06/08/21 06:09: Nucleated Red Blood Cells % (auto) 0.0, Anion Gap 6L, Glomerular Filtration Rate 43.9, Calcium Level 8.7L CBC/BMP Laboratory Tests 06/07/21 21:16 06/08/21 06:09 Assessment/Plan Date Seen The patient was seen on 06/08/21. Patient Summary This is a 76 y/o M POD1 s/p RALP w/ BPLND. Hb stable at 13.6. Cr coming down to 1.6. Good UOP. Normal DEIDRA output. Plan/VTE VTE Prophylaxis Ordered?: Yes VTE Exclusion Mechanical Proph: N/A:VTE Prophy Ordered VTE Exclusion Pharmacological: N/A:VTE Prophy Ordered Plan/Urinary Catheter Urinary Catheter: Other Catheter: (catheter to stay in for at least 7 days for healing of vesicourethral anastomosis) Plan - d/c IVF - percocet prn pain - continue home meds - strict I/Os - SCDs when in bed - ambulate - SQH - incentive spirometry - telemetry monitoring per cardiology preop recs - CLD -> ADAT - possible discharge home later today w/ catheter (will remove DEIDRA prior to discharge if output remains low) JOSÉ QUIÑONEZ MD Jun 08, 2021 07:53
[2021-06-08] MEDS ORDERED: FLUBLOK(EGG FREE)(QUAD)INFLUENZA VACC 0.5ML SYRINGE 18YRS & OLDER IM ONE (09:00)
[2021-06-08] MEDS ORDERED: OMEPRAZOLE 20 MG CAP PO SCH (09:00)
[2021-06-08] MEDS: DOCUSATE SODIUM 100MG CAPSULE PO SCH (09:04)
[2021-06-08] MEDS ORDERED: PERCOCET PO (15:43)
[2021-06-08] MEDS ORDERED: BACT800T5 PO (15:43)
[2021-06-08] MEDS ORDERED: COLA100C5 PO (15:43)
--- NOTE | 2021-06-08 18:32 | DSES ---
DISCHARGE SUMMARY DATE OF ADMISSION: 06/07/2021 DATE OF DISCHARGE: 06/08/2021 ADMISSION DIAGNOSIS: Prostate cancer. DISCHARGE DIAGNOSIS: Prostate cancer. ADMITTING PHYSICIAN: Dr. Sai Andrews DISCHARGING PHYSICIAN: Dr. Sai Andrews PROCEDURES PERFORMED: Robotic-assisted laparoscopic radical prostatectomy with bilateral pelvic lymph node dissection on 06/07/2021. HISTORY OF PRESENT ILLNESS: This is a 76-year-old male with high-risk prostate cancer who elected to undergo the above-listed procedure for treatment. He was admitted to the hospital postoperatively. HOSPITALIZATION COURSE: The patient underwent the above-listed procedure on 06/07/2021. His postoperative course was unremarkable. On postoperative day #1, all of his labs were within acceptable limits. Specifically his hemoglobin was stable at 13.6. His serum creatinine was trending downward to 1.6. His urine output throughout his hospital stay was within normal limits. He had normal output from his Yury-Philippe drain. On postoperative day #1 we had him ambulating, and he did well with minimal difficulty. He diet was advanced to a regular diet, and he had no nausea or vomiting. He had good pain control, having used very minimal pain medication. By the end of postoperative day #1 he was deemed ready for discharge home. His Yury-Philippe drain was removed prior to discharge. He was discharged home with his catheter in place with the plan for him to followup in the urology clinic in 1 week for catheter removal and to discuss pathology results.
== END 2021-06-08 18:02 | disposition home or self-care (01) | DRG 708 ==
LOC: M OR 11:24 → M MSPAV 22:09
PROVIDERS: ADMIT Urology; ATTEND Urology
PROC: 07TC4ZZ Resection of Pelvis Lymphatic, Percutaneous Endoscopic Approach (ICD-10-PCS; 2021-06-07)
PROC: 8E0W4CZ Robotic Assisted Procedure of Trunk Region, Percutaneous Endoscopic Approach (ICD-10-PCS; 2021-06-07)
PROC: 0VT04ZZ Resection of Prostate, Percutaneous Endoscopic Approach (ICD-10-PCS; principal; 2021-06-07 13:30)
DX: C61 Malignant neoplasm of prostate (principal); Z79.899 Other long term (current) drug therapy; I12.9 Hypertensive chronic kidney disease with stage 1 through stage 4 chronic kidney disease, or unspecified chronic kidney disease; E78.5 Hyperlipidemia, unspecified; N18.30 Chronic kidney disease, stage 3 unspecified; K21.9 Gastro-esophageal reflux disease without esophagitis

== ENCOUNTER → 2021-06-15 | Outpatient (CLI) | payer MEDICARE ==
[~2021-06-15] MED LIST changes: +BACT800T5 PO; +COLA100C5 PO; -HEPARIN SOD (PORCINE) 5000UNITS/ML 1ML VIAL/SYRINGE SQ ONE; -LIDOCAINE 1% MDV 20ML VIAL SQ PRN; -LR 1,000 ML IV ONE; -ceFAZolin SOD 2 GM in IV 1 EA IV ONE
[2021-06-15 14:25] LABS: HEMATOCRIT 42.9 % (42.0-52.0); HEMOGLOBIN 14.1 g/dl (13.5-17.5); MEAN CORPUSCULAR HGB CONC 32.9 g/dl (32.0-36.5); MEAN CORPUSCULAR VOLUME 97.3 fl (80.0-96.0); PLATELET COUNT, AUTOMATED 216 10^3/uL (150-450); RED BLOOD COUNT 4.41 10^6/uL (4.30-6.10); WHITE BLOOD COUNT 12.5 10^3/uL (4.0-10.0)
[2021-06-15 15:01] LABS: BLOOD UREA NITROGEN 29 MG/DL (7-18); CALCIUM LEVEL 10.2 MG/DL (8.8-10.2); CARBON DIOXIDE LEVEL 31 MEQ/L (21-32); CHLORIDE LEVEL 105 MEQ/L (98-107); CREATININE FOR GFR 1.56 MG/DL (0.70-1.30); GLOMERULAR FILTRATION RATE 46.2 (>42); GLUCOSE, FASTING 87 MG/DL (70-100); POTASSIUM SERUM 5.3 MEQ/L (3.5-5.1); SODIUM LEVEL 135 MEQ/L (136-145)
== END ==
LOC: M PLALAB 12:22
PROVIDERS: ATTEND Urology
DX: C61 Malignant neoplasm of prostate (principal)

== ENCOUNTER → 2021-07-19 | Outpatient (REF) | payer MEDICARE ==
[2021-07-19 17:31] LABS: APPEARANCE, URINE CLEAR (CLEAR); BACTERIA, URINE AUTO NEGATIVE (NEGATIVE); BILIRUBIN, URINE AUTO NEGATIVE (NEGATIVE); BLOOD, URINE BLOOD NEGATIVE (NEGATIVE); COLOR, URINE YELLOW (YELLOW); GLUCOSE, URINE (UA) AUTO NEGATIVE (NEGATIVE); KETONE, URINE AUTO NEGATIVE (NEGATIVE); LEUKOCYTE ESTERASE, URINE AUTO TRACE (NEGATIVE); MUCUS, URINE SMALL (NEGATIVE); NITRITE, URINE AUTO NEGATIVE (NEGATIVE); PROTEIN, URINE AUTO NEGATIVE (NEGATIVE); RBC, URINE AUTO 0 /HPF (0-3); SPECIFIC GRAVITY URINE AUTO 1.013 (1.002-1.035); SQUAMOUS EPITHELIAL CELL UR AU 0 /HPF (0-6); UROBILINOGEN, URINE AUTO 0.2 mg/dL (0.0-2.0); WBC, URINE AUTO 7 /HPF (0-3)
== END ==
LOC: M SMT 17:06 → M LAB REF 17:06
PROVIDERS: ATTEND Urology
DX: R35.0 Frequency of micturition (principal)

== ENCOUNTER → 2021-07-22 | Outpatient (REF) | payer MEDICARE | LOC: M SFHCCLAY 11:50 | PROVIDERS: ATTEND Urology | DX: C61 Malignant neoplasm of prostate (principal) ==

== ENCOUNTER → 2021-08-25 | Outpatient (REF) | payer MEDICARE ==
[2021-08-25 15:58] LABS: CALCIUM LEVEL 9.5 MG/DL (8.8-10.2); CREATININE FOR GFR 1.26 MG/DL (0.70-1.30); GLOMERULAR FILTRATION RATE 59.1 (>42); POTASSIUM SERUM 4.5 MEQ/L (3.5-5.1)
[2021-08-25 17:20] LABS: HEMOGLOBIN A1c 5.6 %
== END ==
LOC: M SFHCCLAY 10:32
PROVIDERS: ATTEND Family Medicine
DX: I11.9 Hypertensive heart disease without heart failure (principal); R73.01 Impaired fasting glucose

== ENCOUNTER → 2021-09-06 | Outpatient (REF) | payer MEDICARE | LOC: M LAB REF 17:00 | PROVIDERS: ATTEND Internal Medicine Nephrology | DX: N18.31 Chronic kidney disease, stage 3a (principal) ==

== ENCOUNTER → 2021-10-17 | Outpatient (CLI) | payer MEDICARE | LOC: M PLALAB 11:40 | PROVIDERS: ATTEND Urology | DX: C61 Malignant neoplasm of prostate (principal) ==

== ENCOUNTER → 2022-08-18 | Outpatient (REF) | payer MEDICARE ==
[2022-08-18 18:15] LABS: CALCIUM LEVEL 9.8 MG/DL (8.3-10.6); CREATININE FOR GFR 1.35 MG/DL (0.70-1.30); GLOMERULAR FILTRATION RATE 54.4 (>42); POTASSIUM SERUM 4.7 MMOL/L (3.5-5.1)
== END ==
LOC: M SFHCCLAY 13:14
PROVIDERS: ATTEND Nurse Practitioner Family
DX: Z00.00 Encounter for general adult medical examination without abnormal findings (principal); N18.31 Chronic kidney disease, stage 3a; I11.9 Hypertensive heart disease without heart failure

== ENCOUNTER → 2022-10-23 | Outpatient (CLI) | payer MEDICARE | LOC: M PLALAB 13:22 | PROVIDERS: ATTEND Urology | DX: C61 Malignant neoplasm of prostate (principal) ==

== ENCOUNTER → 2023-04-11 | Outpatient (REF) | payer MEDICARE | LOC: M LABWUC 16:27 | PROVIDERS: ATTEND Urology | DX: C61 Malignant neoplasm of prostate (principal) ==

== ENCOUNTER → 2023-04-19 | Outpatient (REF) | payer MEDICARE | LOC: M SMT 12:00 → M WUC 12:00 | PROVIDERS: ATTEND Urology | DX: C61 Malignant neoplasm of prostate (principal) ==

== ENCOUNTER → 2023-09-11 | Outpatient (REF) | payer MEDICARE ==
[2023-09-11 19:21] LABS: BASO # 0.2 10^3/uL (0.0-0.2); BASO % 1.5 % (0.0-1.0); EOS # 0.4 10^3/uL (0.0-0.5); EOS % 4.2 % (0.0-3.0); HEMATOCRIT 49.1 % (42.0-52.0); HEMOGLOBIN 16.3 g/dl (13.5-17.5); LYMPH # 1.7 10^3/uL (1.5-5.0); LYMPH % 17.5 % (24.0-44.0); MEAN CORPUSCULAR HEMOGLOBIN 33.2 pg (27.0-33.0); MEAN CORPUSCULAR HGB CONC 33.2 g/dl (32.0-36.5); MONO # 0.9 10^3/uL (0.0-0.8); MONO % 8.7 % (2.0-8.0); NEUTROPHILS # 6.7 10^3/uL (1.5-8.5); NEUTROPHILS % 67.6 % (36.0-66.0); PLATELET COUNT, AUTOMATED 195 10^3/uL (150-450); RED BLOOD COUNT 4.91 10^6/uL (4.30-6.10); WHITE BLOOD COUNT 9.9 10^3/uL (4.0-10.0)
[2023-09-11 19:27] LABS: HEMOGLOBIN A1c 5.8 % (4.0-6.0)
[2023-09-11 19:48] LABS: THYROID STIMULATING HORMONE 2.581 uIU/ML (0.55-4.78)
[2023-09-11 19:50] LABS: FREE T4 0.99 NG/DL (0.89-1.76)
[2023-09-11 19:52] LABS: ALBUMIN 3.9 G/DL (3.2-5.2); BILIRUBIN,TOTAL 0.7 MG/DL (0.3-1.2); CALCIUM LEVEL 9.9 MG/DL (8.3-10.6); CHOLESTEROL RISK RATIO 3.65 (<5); CREATININE FOR GFR 1.37 MG/DL (0.70-1.30); GLOMERULAR FILTRATION RATE 53.4 (>42); HDL CHOLESTEROL 41.6 MG/DL (>40); LDL CHOLESTEROL 85.8 MG/DL (<100); NON-HDL-C 110.4 MG/DL; POTASSIUM SERUM 5.2 MMOL/L (3.5-5.1); TOTAL PROTEIN 6.9 G/DL (5.7-8.2)
== END ==
LOC: M SFHCCLAY 11:20
PROVIDERS: ATTEND Nurse Practitioner Family
DX: R53.83 Other fatigue (principal); N18.31 Chronic kidney disease, stage 3a; R73.03 Prediabetes; E78.5 Hyperlipidemia, unspecified; R06.83 Snoring

== ENCOUNTER → 2023-11-16 | Outpatient (CLI) | payer MEDICARE ==
[~2023-11-16] MED LIST changes: -ASPI-161 PO; +ASPI-615 PO
== END ==
LOC: M SLEEP HO 10:43
PROVIDERS: ATTEND Nurse Practitioner Family
DX: R06.83 Snoring (principal); R53.83 Other fatigue

== ENCOUNTER → 2024-03-28 | Outpatient (REF) | payer MEDICARE ==
[~2024-03-28] MED LIST changes: +ALFU10TA23 PO; -ALFU10TA3 PO
[2024-03-28 18:04] LABS: BASO # 0.1 10^3/uL (0.0-0.2); BASO % 1.4 % (0.0-1.0); EOS # 0.3 10^3/uL (0.0-0.5); EOS % 3.5 % (0.0-3.0); HEMATOCRIT 48.8 % (42.0-52.0); HEMOGLOBIN 15.8 g/dl (13.5-17.5); LYMPH # 1.7 10^3/uL (1.5-5.0); MEAN CORPUSCULAR HGB CONC 32.4 g/dl (32.0-36.5); MEAN CORPUSCULAR VOLUME 98.8 fl (80.0-96.0); MONO # 0.8 10^3/uL (0.0-0.8); MONO % 8.3 % (2.0-8.0); NEUTROPHILS # 6.8 10^3/uL (1.5-8.5); NEUTROPHILS % 69.3 % (36.0-66.0); PLATELET COUNT, AUTOMATED 166 10^3/uL (150-450); RED BLOOD COUNT 4.94 10^6/uL (4.30-6.10); WHITE BLOOD COUNT 9.8 10^3/uL (4.0-10.0)
[2024-03-28 18:07] LABS: PROSTATIC SPECIFIC AG MONITOR 0.04 NG/ML (< 4.00)
[2024-03-28 18:11] LABS: ALBUMIN 4.2 G/DL (3.2-5.2); BILIRUBIN,TOTAL 0.9 MG/DL (0.3-1.2); CALCIUM LEVEL 9.3 MG/DL (8.3-10.6); CHOLESTEROL RISK RATIO 3.86 (<5); CREATININE FOR GFR 1.39 MG/DL (0.70-1.30); GLOMERULAR FILTRATION RATE 52.5 (>42); HDL CHOLESTEROL 40.1 MG/DL (>40); LDL CHOLESTEROL 96.9 MG/DL (<100); NON-HDL-C 114.9 MG/DL; POTASSIUM SERUM 5.3 MMOL/L (3.5-5.1); TOTAL PROTEIN 7.5 G/DL (5.7-8.2)
== END ==
LOC: M SFHCCLAY 10:59
PROVIDERS: ATTEND Nurse Practitioner Family
DX: I12.9 Hypertensive chronic kidney disease with stage 1 through stage 4 chronic kidney disease, or unspecified chronic kidney disease (principal); R53.83 Other fatigue; R06.83 Snoring; R73.03 Prediabetes; E78.5 Hyperlipidemia, unspecified; Z95.0 Presence of cardiac pacemaker; Z85.46 Personal history of malignant neoplasm of prostate

== ENCOUNTER → 2024-04-11 | Outpatient (REF) | payer MEDICARE | LOC: M SFHCCLAY 07:58 | PROVIDERS: ATTEND Nurse Practitioner Family | DX: E87.5 Hyperkalemia (principal) ==

== ENCOUNTER → 2024-04-30 | Outpatient (CLI) | payer MEDICARE | LOC: M WUC 11:57 | PROVIDERS: ATTEND Urology | DX: C61 Malignant neoplasm of prostate (principal) ==

== ENCOUNTER 2024-08-19 16:14 | Emergency (ER) | payer MEDICARE ==
[~2024-08-19] VITALS: Ht 172.7 cm; Wt 71.4 kg
[~2024-08-19 16:14] MED LIST changes: -CYCL5TAB PO; +CYCL5TAB4 PO
[2024-08-19 19:27] LABS: BASO # 0.1 10^3/uL (0.0-0.2); BASO % 0.9 % (0.0-1.0); EOS # 0.3 10^3/uL (0.0-0.5); EOS % 3.2 % (0.0-3.0); HEMATOCRIT 42.9 % (42.0-52.0); HEMOGLOBIN 14.2 g/dl (13.5-17.5); LYMPH # 1.8 10^3/uL (1.5-5.0); LYMPH % 19.9 % (24.0-44.0); MEAN CORPUSCULAR HEMOGLOBIN 32.4 pg (27.0-33.0); MEAN CORPUSCULAR HGB CONC 33.1 g/dl (32.0-36.5); MEAN CORPUSCULAR VOLUME 97.9 fl (80.0-96.0); MONO % 11.2 % (2.0-8.0); NEUTROPHILS # 5.6 10^3/uL (1.5-8.5); NEUTROPHILS % 63.3 % (36.0-66.0); PLATELET COUNT, AUTOMATED 172 10^3/uL (150-450); RED BLOOD COUNT 4.38 10^6/uL (4.30-6.10); WHITE BLOOD COUNT 8.8 10^3/uL (4.0-10.0)
[2024-08-19 19:45] VITALS: TEMP 97.8
[2024-08-19 19:52] LABS: ALBUMIN 3.5 G/DL (3.2-5.2); BILIRUBIN,TOTAL 0.7 MG/DL (0.3-1.2); CALCIUM LEVEL 9.4 MG/DL (8.3-10.6); CK-MB VALUE MASS 2.6 NG/ML (<3.6); CREATININE FOR GFR 1.28 MG/DL (0.70-1.30); GLOMERULAR FILTRATION RATE 57.6 (>35); MAGNESIUM LEVEL 1.9 MG/DL (1.8-2.4); POTASSIUM SERUM 4.7 MMOL/L (3.5-5.1)
[2024-08-19 19:54] LABS: FREE T4 1.19 NG/DL (0.89-1.76); THYROID STIMULATING HORMONE 1.99 uIU/ML (0.55-4.78)
[2024-08-19 19:59] LABS: MB/CK RELATIVE INDEX 2.34 (< OR =4)
[2024-08-19] MEDS ORDERED: ISOVUE-370 76% 100ML VIAL As Ordered ONE (20:06)
[2024-08-19 21:00] VITALS: BP 147/81; O2SAT 97
[2024-08-19 21:06] LABS: CK-MB VALUE MASS 2.4 NG/ML (<3.6)
[2024-08-19 21:09] LABS: MB/CK RELATIVE INDEX 2.22 (< OR =4)
[2024-08-19] MEDS ORDERED: CEPH500C PO (21:30)
[2024-08-19] MEDS: CEPHALEXIN 500 MG CAP PO ONE (21:33)
== END 2024-08-19 21:39 | disposition home or self-care (01) ==
LOC: M ED 16:14
DX: L03.116 Cellulitis of left lower limb (principal); Z45.018 Encounter for adjustment and management of other part of cardiac pacemaker; I44.0 Atrioventricular block, first degree; I44.7 Left bundle-branch block, unspecified; I45.81 Long QT syndrome; I10 Essential (primary) hypertension; E78.5 Hyperlipidemia, unspecified; Z79.1 Long term (current) use of non-steroidal anti-inflammatories (NSAID); Z79.2 Long term (current) use of antibiotics; Z79.899 Other long term (current) drug therapy
CPT/HCPCS: 36415; 71045; 71275; 80053; 82550; 82553; 83735; 84439; 84443; 84484; 85025; 85379; 93005; 93970; 99284; Q9967

== ENCOUNTER 2024-08-29 07:14 | Inpatient (IN) | payer MEDICARE ==
[~2024-08-29] VITALS: Ht 165.1 cm; Wt 91.5 kg
[~2024-08-29 07:14] MED LIST changes: +CEPH500C PO
[2024-08-29] MEDS: NS 0.9% IV ONE (07:55)
[2024-08-29] MEDS: [UNRECOGNIZED DRUG - OTHER] IV ONE (07:55)
[2024-08-29] MEDS: cefTRIAXone SOD 2 GM in DEXTROSE 5% (D5W) ADV/MINI-BAG 50 ML IV ONE (08:22)
[2024-08-29] MEDS: ACETAMINOPHEN 325 MG TAB PO ONE (08:22)
[2024-08-29 08:26] LABS: VENOUS PH 7.363 UNITS (7.330-7.430)
[2024-08-29 08:27] LABS: VENOUS BASE EXCESS -2.9 (-2.0-2.0); VENOUS HCO3 22.2 MMOL/L (23.0-27.0); VENOUS O2 SATURATION 92.4 % (60.0-80.0); VENOUS PARTIAL PRESSURE CO2 39.9 mmHg (38.0-50.0); VENOUS PARTIAL PRESSURE O2 63.4 mmHg (30.0-50.0); VENOUS STANDARD HCO3 21.9 MMOL/L; VENOUS TOTAL CO2 23.4 MMOL/L (24.0-28.0)
[2024-08-29 08:32] LABS: BASO # 0.1 10^3/uL (0.0-0.2); BASO % 0.5 % (0.0-1.0); EOS % 0.2 % (0.0-3.0); HEMATOCRIT 38.2 % (42.0-52.0); HEMOGLOBIN 12.3 g/dl (13.5-17.5); LYMPH # 0.4 10^3/uL (1.5-5.0); LYMPH % 1.9 % (24.0-44.0); MEAN CORPUSCULAR HGB CONC 32.2 g/dl (32.0-36.5); MEAN CORPUSCULAR VOLUME 99.5 fl (80.0-96.0); MONO # 0.9 10^3/uL (0.0-0.8); MONO % 4.6 % (2.0-8.0); NEUTROPHILS # 18.9 10^3/uL (1.5-8.5); PLATELET COUNT, AUTOMATED 176 10^3/uL (150-450); RED BLOOD COUNT 3.84 10^6/uL (4.30-6.10); WHITE BLOOD COUNT 20.6 10^3/uL (4.0-10.0)
[2024-08-29 08:43] LABS: INR 1.2; PARTIAL THROMBOPLASTIN TIME 32.8 SECONDS (24.8-34.2); PROTHROMBIN TIME 15.5 SECONDS (12.5-14.5)
[2024-08-29 08:59] LABS: ALBUMIN 3.3 G/DL (3.2-5.2); BILIRUBIN,DIRECT 0.5 MG/DL (<0.4); BILIRUBIN,TOTAL 1.4 MG/DL (0.3-1.2); C REACTIVE PROTEIN QUANTITATIV 12.41 MG/DL (<1.0); CALCIUM LEVEL 8.7 MG/DL (8.3-10.6); CREATININE FOR GFR 1.82 MG/DL (0.70-1.30); GLOMERULAR FILTRATION RATE 38.4 (>35); POTASSIUM SERUM 4.6 MMOL/L (3.5-5.1); TOTAL PROTEIN 7.1 G/DL (5.7-8.2)
[2024-08-29 09:11] LABS: PROCALCITONIN 43.96 ng/ml
[2024-08-29 12:06] LABS: APPEARANCE, URINE CLEAR (CLEAR); BACTERIA, URINE AUTO NEGATIVE (NEGATIVE); BILIRUBIN, URINE AUTO NEGATIVE (NEGATIVE); BLOOD, URINE BLOOD NEGATIVE (NEGATIVE); COLOR, URINE YELLOW (YELLOW); GLUCOSE, URINE (UA) AUTO NEGATIVE (NEGATIVE); KETONE, URINE AUTO TRACE mg/dL (NEGATIVE); LEUKOCYTE ESTERASE, URINE AUTO NEGATIVE (NEGATIVE); NITRITE, URINE AUTO NEGATIVE (NEGATIVE); PROTEIN, URINE AUTO NEGATIVE (NEGATIVE); RBC, URINE AUTO 0 /HPF (0-3); SPECIFIC GRAVITY URINE AUTO 1.024 (1.002-1.035); SQUAMOUS EPITHELIAL CELL UR AU 0 /HPF (0-6); WBC, URINE AUTO 0 /HPF (0-3)
[2024-08-29] MEDS ORDERED: ISOVUE-370 76% 100ML VIAL As Ordered ONE (14:32)
[2024-08-29] MEDS: DOXYCYCLINE HYCLATE 100MG TABLET PO SCH (15:30)
[2024-08-29] MEDS ORDERED: HOME MED LIST COMPLETE! XX SCH (16:50)
[2024-08-29 18:20] VITALS: BP 137/66; O2SAT 98
[2024-08-29 18:35] LABS: CREATININE FOR GFR 1.61 MG/DL (0.70-1.30); GLOMERULAR FILTRATION RATE 44.2 (>35); POTASSIUM SERUM 4.5 MMOL/L (3.5-5.1)
[2024-08-29] MEDS: ASPIRIN 81MG CHEW TABLET PO SCH (18:46)
[2024-08-29 19:29] VITALS: BP 152/88; TEMP 98.5; O2SAT 97
[2024-08-29 20:09] LABS: HEMATOCRIT 38.1 % (42.0-52.0); HEMOGLOBIN 12.2 g/dl (13.5-17.5); MEAN CORPUSCULAR HEMOGLOBIN 32.1 pg (27.0-33.0); MEAN CORPUSCULAR VOLUME 100.3 fl (80.0-96.0); PLATELET COUNT, AUTOMATED 182 10^3/uL (150-450); WHITE BLOOD COUNT 19.5 10^3/uL (4.0-10.0)
[2024-08-29] MEDS: IPRATROPIUM 0.5MG/ALBUTEROL 2.5MG INH SOL UD 3ML (DUONEB) INH SCH (20:15)
[2024-08-29] MEDS: HEPARIN SOD (PORCINE) 5000UNITS/ML 1ML VIAL/SYRINGE SC SCH (20:32)
[2024-08-29 23:03] VITALS: BP 120/56; TEMP 98.9; O2SAT 94
[2024-08-30 03:03] VITALS: BP 129/63; TEMP 98.2; O2SAT 95
[2024-08-30] MEDS: guaiFENesin DM LIQ 10ML UD PO ONE ×2 (04:57→20:32)
[2024-08-30 05:31] LABS: HEMATOCRIT 34.1 % (42.0-52.0); HEMOGLOBIN 10.8 g/dl (13.5-17.5); MEAN CORPUSCULAR HEMOGLOBIN 31.7 pg (27.0-33.0); MEAN CORPUSCULAR HGB CONC 31.7 g/dl (32.0-36.5); PLATELET COUNT, AUTOMATED 161 10^3/uL (150-450); RED BLOOD COUNT 3.41 10^6/uL (4.30-6.10); WHITE BLOOD COUNT 14.2 10^3/uL (4.0-10.0)
[2024-08-30 06:03] LABS: CALCIUM LEVEL 8.4 MG/DL (8.3-10.6); CREATININE FOR GFR 1.55 MG/DL (0.70-1.30); GLOMERULAR FILTRATION RATE 46.2 (>35); MAGNESIUM LEVEL 1.8 MG/DL (1.8-2.4); POTASSIUM SERUM 4.4 MMOL/L (3.5-5.1)
[2024-08-30 07:55] VITALS: BP 120/63; TEMP 97.8; O2SAT 92
[2024-08-30] MEDS: PREVNAR-20 VACCINE 0.5ML SYRINGE IM.IMMUN ONE (09:28)
[2024-08-30] MEDS: OMEPRAZOLE 20MG CAP PO SCH (09:29)
[2024-08-30] MEDS: SIMVASTATIN 40 MG TAB PO SCH (09:29)
[2024-08-30] MEDS: cefTRIAXone SOD 1 GM in DEXTROSE 5% (D5W) ADV/MINI-BAG 50 ML IV SCH (09:30)
[2024-08-30] MEDS: FLUBLOK(EGGFREE) TRIVAL(24-25) VACCINE PF 0.5ML SYRINGE 18YRS & OLDER IM.IMMUN ONE (09:31)
[2024-08-30] MEDS: IPRATROPIUM 0.5MG/ALBUTEROL 2.5MG INH SOL UD 3ML (DUONEB) INH PRN (15:10)
[2024-08-30] MEDS: cefTRIAXone SOD 1 GM in DEXTROSE 5% (D5W) ADV/MINI-BAG 50 ML IV ONE (15:53)
[2024-08-30 16:00] VITALS: BP 141/67; TEMP 98.3; O2SAT 97
[2024-08-30] MEDS: ACETAMINOPHEN 325 MG TAB PO PRN (16:01)
[2024-08-30 19:25] VITALS: BP 149/73; TEMP 98.2; O2SAT 96
[2024-08-30 23:21] VITALS: BP 151/77; TEMP 98; O2SAT 95
[2024-08-31] VITALS (13 sets, daily range): BP systolic 112–151; BP diastolic 59–97; TEMP 97.4–98.2; O2SAT 91–96
[2024-08-31 06:27] LABS: HEMOGLOBIN 10.8 g/dl (13.5-17.5); MEAN CORPUSCULAR HEMOGLOBIN 32.8 pg (27.0-33.0); MEAN CORPUSCULAR HGB CONC 32.7 g/dl (32.0-36.5); MEAN CORPUSCULAR VOLUME 100.3 fl (80.0-96.0); PLATELET COUNT, AUTOMATED 150 10^3/uL (150-450); RED BLOOD COUNT 3.29 10^6/uL (4.30-6.10); WHITE BLOOD COUNT 11.1 10^3/uL (4.0-10.0)
[2024-08-31 08:13] LABS: CALCIUM LEVEL 8.2 MG/DL (8.3-10.6); CREATININE FOR GFR 1.24 MG/DL (0.70-1.30); GLOMERULAR FILTRATION RATE 59.7 (>35); MAGNESIUM LEVEL 1.7 MG/DL (1.8-2.4); POTASSIUM SERUM 4.3 MMOL/L (3.5-5.1)
[2024-08-31] MEDS: cefTRIAXone SOD 2 GM in DEXTROSE 5% (D5W) ADV/MINI-BAG 50 ML IV SCH (08:39)
[2024-08-31] MEDS: guaiFENesin DM LIQ 10ML UD PO PRN (13:00)
[2024-09-01 03:10] VITALS: BP 155/79; TEMP 97.3; O2SAT 94
[2024-09-01 05:29] LABS: HEMATOCRIT 33.8 % (42.0-52.0); MEAN CORPUSCULAR HEMOGLOBIN 31.6 pg (27.0-33.0); MEAN CORPUSCULAR HGB CONC 32.5 g/dl (32.0-36.5); MEAN CORPUSCULAR VOLUME 97.1 fl (80.0-96.0); PLATELET COUNT, AUTOMATED 174 10^3/uL (150-450); RED BLOOD COUNT 3.48 10^6/uL (4.30-6.10); WHITE BLOOD COUNT 9.3 10^3/uL (4.0-10.0)
[2024-09-01 05:48] LABS: CALCIUM LEVEL 8.6 MG/DL (8.3-10.6); CREATININE FOR GFR 1.41 MG/DL (0.70-1.30); GLOMERULAR FILTRATION RATE 51.5 (>35); POTASSIUM SERUM 4.4 MMOL/L (3.5-5.1)
[2024-09-01 08:05] VITALS: BP 144/76; TEMP 97.8; O2SAT 92
[2024-09-01 11:51] VITALS: BP 154/80; TEMP 98.3; O2SAT 94
[2024-09-01] MEDS ORDERED: ASPI81CH8 PO (14:46)
[2024-09-01] MEDS ORDERED: CEFD300C PO (14:46)
[2024-09-01 15:05] LABS: PROCALCITONIN 7.67 ng/ml
[2024-09-01 19:26] LABS: URINE STREP PNEUMONIAE ANTIGEN NOT DETECTED (NOT DETECT)
== END 2024-09-01 16:25 | disposition home or self-care (01) | DRG 872 ==
LOC: EDBD 07:14 → M ED 07:14 → M ED INP 13:30 → M PCU 18:24
PROVIDERS: ADMIT Student in an Organized Health Care Education/Training Program; ATTEND Student in an Organized Health Care Education/Training Program
PROC: B246ZZZ Ultrasonography of Right and Left Heart (ICD-10-PCS; principal; 2024-08-31)
DX: A40.3 Sepsis due to Streptococcus pneumoniae (principal); N17.9 Acute kidney failure, unspecified; L03.116 Cellulitis of left lower limb; I13.0 Hypertensive heart and chronic kidney disease with heart failure and stage 1 through stage 4 chronic kidney disease, or unspecified chronic kidney disease; I50.22 Chronic systolic (congestive) heart failure; Z66 Do not resuscitate; M19.90 Unspecified osteoarthritis, unspecified site; E78.5 Hyperlipidemia, unspecified; J40 Bronchitis, not specified as acute or chronic; K76.89 Other specified diseases of liver; N18.30 Chronic kidney disease, stage 3 unspecified; K21.9 Gastro-esophageal reflux disease without esophagitis; Z95.0 Presence of cardiac pacemaker; Z85.46 Personal history of malignant neoplasm of prostate; Z87.891 Personal history of nicotine dependence; Z79.899 Other long term (current) drug therapy

== ENCOUNTER → 2024-09-10 | Outpatient (REF) | payer MEDICARE ==
[~2024-09-10] MED LIST changes: +ASPI81CH8 PO; +CEFD300C PO
[2024-09-10 18:31] LABS: BLOOD UREA NITROGEN 18 MG/DL (9-23); CALCIUM LEVEL 9.4 MG/DL (8.3-10.6); CARBON DIOXIDE LEVEL 30 MMOL/L (20-31); CHLORIDE LEVEL 107 MMOL/L (98-107); CREATININE FOR GFR 1.18 MG/DL (0.70-1.30); GLOMERULAR FILTRATION RATE > 60.0 (>35); GLUCOSE, FASTING 87 MG/DL (74-106); POTASSIUM SERUM 4.7 MMOL/L (3.5-5.1); SODIUM LEVEL 143 MMOL/L (136-145)
== END ==
LOC: M SFHCCLAY 13:52
PROVIDERS: ATTEND Nurse Practitioner Family
DX: I50.9 Heart failure, unspecified (principal)

== ENCOUNTER → 2024-09-18 | Outpatient (REF) | payer MEDICARE | LOC: M SFHCCLAY 13:46 | PROVIDERS: ATTEND Nurse Practitioner Family | DX: N18.31 Chronic kidney disease, stage 3a (principal) ==

== ENCOUNTER → 2024-11-14 | Outpatient (CLI) | payer MEDICARE | LOC: M LAB 14:21 | PROVIDERS: ATTEND Urology | DX: C61 Malignant neoplasm of prostate (principal) ==

== ENCOUNTER → 2024-12-17 | Outpatient (REF) | payer MEDICARE ==
[2024-12-17 18:00] LABS: BASO # 0.1 10^3/uL (0.0-0.2); BASO % 1.3 % (0.0-1.0); EOS # 0.4 10^3/uL (0.0-0.5); EOS % 4.3 % (0.0-3.0); HEMATOCRIT 42.3 % (42.0-52.0); HEMOGLOBIN 13.8 g/dl (13.5-17.5); LYMPH # 1.7 10^3/uL (1.5-5.0); LYMPH % 18.1 % (24.0-44.0); MEAN CORPUSCULAR HEMOGLOBIN 31.5 pg (27.0-33.0); MEAN CORPUSCULAR HGB CONC 32.6 g/dl (32.0-36.5); MEAN CORPUSCULAR VOLUME 96.6 fl (80.0-96.0); MONO # 0.8 10^3/uL (0.0-0.8); MONO % 9.1 % (2.0-8.0); NEUTROPHILS # 6.1 10^3/uL (1.5-8.5); NEUTROPHILS % 66.9 % (36.0-66.0); PLATELET COUNT, AUTOMATED 183 10^3/uL (150-450); RED BLOOD COUNT 4.38 10^6/uL (4.30-6.10); WHITE BLOOD COUNT 9.1 10^3/uL (4.0-10.0)
[2024-12-17 18:32] LABS: CALCIUM LEVEL 9.8 MG/DL (8.3-10.6); CHOLESTEROL RISK RATIO 3.83 (<5); CREATININE FOR GFR 1.14 MG/DL (0.70-1.30); HDL CHOLESTEROL 41.5 MG/DL (>40); LDL CHOLESTEROL 79.5 MG/DL (<100); NON-HDL-C 117.5 MG/DL; POTASSIUM SERUM 4.5 MMOL/L (3.5-5.1)
[2024-12-17 18:58] LABS: HEMOGLOBIN A1c 5.7 % (4.0-6.0)
== END ==
LOC: M SFHCCLAY 14:22
PROVIDERS: ATTEND Nurse Practitioner Family
DX: I50.9 Heart failure, unspecified (principal); E78.5 Hyperlipidemia, unspecified; R73.03 Prediabetes

== ENCOUNTER → 2025-04-15 | Outpatient (REF) | payer MEDICARE ==
[~2025-04-15] MED LIST changes: +LIDO1ADH93 TD; -LIDO5DIS41 TD
[2025-04-15 18:39] LABS: PLATELET COUNT, AUTOMATED 197 10^3/uL (150-450)
[2025-04-15 19:10] LABS: ALT/SGPT 18.0 U/L (7.0-40); AST/SGOT 19.0 U/L (<34); CALCIUM LEVEL 9.6 MG/DL (8.3-10.6); CARBON DIOXIDE LEVEL 27.0 MMOL/L (20-31); CHLORIDE LEVEL 106.0 MMOL/L (98-107); CHOLESTEROL LEVEL 150.0 MG/DL (<200); CHOLESTEROL RISK RATIO 3.56 (<5); CREATININE FOR GFR 1.21 MG/DL (0.70-1.30); GLOMERULAR FILTRATION RATE 60.2 (>35); LDL CHOLESTEROL 75.5 MG/DL (<100); NON-HDL-C 107.9 MG/DL; POTASSIUM SERUM 4.7 MMOL/L (3.5-5.1); PROSTATIC SPECIFIC AG MONITOR 0.04 NG/ML (< 4.00); SODIUM LEVEL 143.0 MMOL/L (136-145); TRIGLYCERIDES LEVEL 162.0 MG/DL (<150)
[2025-04-15 19:44] LABS: ESTIMATED AVERAGE GLUCOSE 128.0 MG/DL (60-110)
== END ==
LOC: M SFHCCLAY 14:34
PROVIDERS: ATTEND Nurse Practitioner Family
DX: N18.31 Chronic kidney disease, stage 3a (principal); E78.5 Hyperlipidemia, unspecified; C61 Malignant neoplasm of prostate; R73.03 Prediabetes

== ENCOUNTER 2025-08-04 14:35 | Emergency (ER) | payer MEDICARE ==
[~2025-08-04] VITALS: Ht 172.7 cm; Wt 84.3 kg
[2025-08-04 15:05] LABS: BASO # 0.1 10^3/uL (0.0-0.2); BASO % 0.9 % (0.0-1.0); EOS # 0.3 10^3/uL (0.0-0.5); EOS % 2.8 % (0.0-3.0); LYMPH # 1.3 10^3/uL (1.5-5.0); LYMPH % 11.6 % (24.0-44.0); MONO # 1.0 10^3/uL (0.0-0.8); MONO % 8.4 % (2.0-8.0); NEUTROPHILS # 8.8 10^3/uL (1.5-8.5); NEUTROPHILS % 76.0 % (36.0-66.0); PLATELET COUNT, AUTOMATED 228 10^3/uL (150-450)
[2025-08-04 15:32] LABS: CK-MB VALUE MASS 4.7 NG/ML (<3.6); INR 1.43
[2025-08-04 15:34] LABS: ALT/SGPT 18.0 U/L (7.0-40); AST/SGOT 24.0 U/L (<34); CALCIUM LEVEL 9.5 MG/DL (8.3-10.6); CARBON DIOXIDE LEVEL 27.0 MMOL/L (20-31); CHLORIDE LEVEL 107.0 MMOL/L (98-107); CREATININE FOR GFR 1.17 MG/DL (0.70-1.30); GLOMERULAR FILTRATION RATE 62.6 (>35); POTASSIUM SERUM 4.9 MMOL/L (3.5-5.1); SODIUM LEVEL 142.0 MMOL/L (136-145)
[2025-08-04 15:37] LABS: CPK CREATINE PHOSPHOKINASE 115.0 U/L (46-171); FREE T4 1.31 NG/DL (0.89-1.76); MB/CK RELATIVE INDEX 4.08 (< OR =4)
[2025-08-04] MEDS ORDERED: ISOVUE-370 76% 100 ML VIAL As Ordered ONE (15:54)
[2025-08-04 16:26] LABS: CK-MB VALUE MASS 4.0 NG/ML (<3.6)
[2025-08-04 16:28] LABS: CPK CREATINE PHOSPHOKINASE 95.0 U/L (46-171); MB/CK RELATIVE INDEX 4.21 (< OR =4)
[2025-08-04 18:32] LABS: CK-MB VALUE MASS 4.2 NG/ML (<3.6)
[2025-08-04 18:34] LABS: CPK CREATINE PHOSPHOKINASE 93.0 U/L (46-171); MB/CK RELATIVE INDEX 4.51 (< OR =4)
[2025-08-04 18:52] VITALS: O2SAT 96
[2025-08-04 19:47] VITALS: BP 159/72; TEMP 97.4; O2SAT 95
== END 2025-08-04 19:47 | disposition home or self-care (01) ==
LOC: M ED 14:35
DX: Z13.6 Encounter for screening for cardiovascular disorders (principal); R93.2 Abnormal findings on diagnostic imaging of liver and biliary tract; R91.1 Solitary pulmonary nodule; K44.9 Diaphragmatic hernia without obstruction or gangrene; I25.84 Coronary atherosclerosis due to calcified coronary lesion; J98.11 Atelectasis; I10 Essential (primary) hypertension; I44.7 Left bundle-branch block, unspecified; I48.91 Unspecified atrial fibrillation; N18.30 Chronic kidney disease, stage 3 unspecified; E78.5 Hyperlipidemia, unspecified; K21.9 Gastro-esophageal reflux disease without esophagitis; M19.90 Unspecified osteoarthritis, unspecified site; Z87.891 Personal history of nicotine dependence; Z95.0 Presence of cardiac pacemaker; Z79.82 Long term (current) use of aspirin; Z79.899 Other long term (current) drug therapy
CPT/HCPCS: 36415; 71046; 71275; 80048; 80076; 82550; 82553; 84439; 84443; 84484; 85025; 85610; 85730; 93005; 93041; 94760; 99285; Q9967